=== PATIENT | male | born 1945 | race Caucasian/White ===

== ENCOUNTER 2020-05-17 09:47 | Outpatient (REF) | payer SELFPAY ==
--- NOTE | 2020-05-17 11:48 | MHC.AU.P13 ---
Hearing Instrument Follow-Up- Binaural Date of Visit: 05/17/20 Lithographic Plate Maker Apprentice Used: Not Applicable Right Ear: Protection Analyst: Phonak Model: ClearCareeo B 90-312 Serial Number: [id number] Repair Warranty: 05/05/2020 Loss and Damage Warranty: 05/05/2020 Battery Size: 312 Color: Graphite Davidson Director Of It Operations: #3 Standard Type of Mold: Phonak Canal Lock Slim Tip [id number] Warranty 06/06/2017 Type of Wax Guard: CeruStop Left Ear: Protection Analyst: Phonak Model: Audeo B 90-312 Serial Number: [id number] RepairWarranty: 05/05/2020 Loss and Damage Warranty: 05/05/2020 Battery Size: 312 Color: Graphite Davidson Director Of It Operations: #3 Standard Type of Mold: Phonak Canal Lock Slim Tip [id number] Warranty 06/06/2017 Type of Wax Guard: CeruStop Follow-Up Summary: Patient brought in (then waited in the car) noting the left Phonak aid was not working and the right Phonak aid not sitting on ear correctly and may be related to the slim tip. Both aids had cerumen blocking the receivers and microphones, left aid greater than right. Able to clean, microphones, contacts, microphones, slim tips. Both amplifying clearly after cleaning. THE RIGHT SLIM TIP HAS A CRACK NEAR THE CANAL LOCK with THE WAX GUARD RING LOSE AND AN OLD WAX GUARD STUCK IN THE MOLD (able to remove the old wax guard). RECOMMEND PATIENT PURCHASE A NEW RIGHT CANAL LOCK SLIM TIP. Patient also brought in his old left Mahendra aid not working at all. Again, cerumen was completely blocking the wax guard. Able to change the wax guard and clean contacts and brush microphones. Due to the age of the aid, unable to change the microphone cover so just brushed. The aid is amplifying;however, the sound is much weaker compared to the Phonak aids. Patient approved cost of $115.00 for new Right canal lock slim tip. Faxed order. Call patient when in Recommendations: Recommendations: Hearing instrument follow-up or maintenance as needed. Recommendations (Other): Faxed order for new Right Canal Lock Slim Tip using scan on file. Patient approved $115.00 cost. Schedule appointment when received. Diagnosis Code(s): Primary Diagnosis: H90.3 Bilateral Sensorineural Hearing Loss Signature: Provider: Felipe Richard, KHANG-A
== END 2020-05-17 09:48 | disposition home or self-care (01) ==
LOC: HO.HAP 09:47
PROVIDERS: Visit Provider Internal Medicine
DX: Z13.89 Encounter for screening for other disorder (principal)

== ENCOUNTER 2020-05-24 10:55 | Outpatient (REF) | payer MEDICARE, OTHER, SELFPAY ==
--- NOTE | 2020-05-24 11:16 | MHC.AU.P13 ---
Adult Audiological Evaluation Date of Visit: 05/24/20 Reason for Appointment: History of hearing loss. Patient arrives to determine if there has been a change in hearing. Previous Hearing Test Results: 04/21/2019 At this Clinic- Moderate to severe sensorineural hearing loss bilaterally Ear History: Recent Ear Drainage: None Reported Recent Ear Pain: None Reported Family History of Hearing Loss?: Yes Recent Ear Infections: None Reported Hearing Instrument History- Right Ear: Land Surveyor Manager: Phonak Model: [employer]ovation[employer].eo B 90-312 Serial Number: [id number] Battery Size: 312 Repair Warranty: 05/05/2020 Loss and Damage Warranty: 05/05/2020 Dispensed By: [facility] Date of Fittin02/19/2017 Hearing Instrument History- Left Ear: Land Surveyor Manager: Phonak Model: [employer]ovation[employer].eo B 90-312 Serial Number: [id number] Battery Size: 312 Warranty: 05/05/2020 Loss and Damage Warranty: 05/05/2020 Dispensed By: [facility] Date of Fittin02/19/2017 Otoscopy: Right Ear: Unremarkable Left Ear: Unremarkable Tympanometry: Right Ear: Normal Middle Ear System (Type A) Left Ear: Normal Middle Ear System (Type A) Hearing Evaluation: Transducer(s) Used: Insert Earphones Method: Conventional Audiometry Stimuli Used: Pure Tones Right Ear: Description of Hearing: Moderate to severe sensorineural hearing loss Left Ear: Description of Hearing: Moderate to severe sensorineural hearing loss Speech Recognition Threshold (SRT): Method Used: Recorded Lists Stimuli Used: Spondee Words Right Ear: 60 dBHL Left Ear: 60 dBHL Word Discrimination: Method: Recorded Lists Word Lists Used: NU-6 Right Ear: 80% at 85 dBHL Left Ear: 88% at 85 dBHL Most Comfortable Level (MCL): Right Ear: 85 dBHL Left Ear: 85 dBHL QuickSIN: Unaided at 85 dBHL: 7 dB SNR loss, which indicates moderate difficulty hearing in noise Aided at 55 dBHL: Improved to 4 dB SNR loss Aided Testing: Aided Testing: Aided word discrimination is 96% at 55 dBHL Comparison: Compared to the most recent evaluation: Hearing is stable. Recommendations: Audiological re-evaluation in one year. Patient had hearing aid maintenance last week; therefore, maintenance was not performed again today. A new right-sided slim tip was ordered last week. Patient will be contacted when it has arrived. Diagnosis: Primary Diagnosis: H90.3 Bilateral Sensorineural Hearing Loss Services Performed: Services Performed: Comprehensive Audiological Evaluation (CPT 35198), Tympanometry (CPT 55180) Signature: Provider: Felipe Mathur, CCC-A
== END 2020-05-24 10:56 | disposition home or self-care (01) ==
LOC: HO.SH 10:55
PROVIDERS: Visit Provider Internal Medicine
DX: H90.3 Sensorineural hearing loss, bilateral (principal)
CPT/HCPCS: 92557; 92567

== ENCOUNTER 2020-06-16 13:04 | Outpatient (REF) | payer SELFPAY | END 2020-06-16 13:05 | disposition home or self-care (01) | LOC: HO.HAP 13:04 | PROVIDERS: Visit Provider Internal Medicine | DX: Z46.1 Encounter for fitting and adjustment of hearing aid (principal); H90.3 Sensorineural hearing loss, bilateral | CPT/HCPCS: V5264 ==

== ENCOUNTER 2020-06-24 12:50 | Outpatient (REF) | payer SELFPAY | END 2020-06-24 12:51 | disposition home or self-care (01) | LOC: HO.HAP 12:50 | PROVIDERS: Visit Provider Internal Medicine | DX: Z13.89 Encounter for screening for other disorder (principal) ==

== ENCOUNTER 2020-07-06 12:49 | Outpatient (REF) | payer SELFPAY | END 2020-07-06 12:50 | disposition home or self-care (01) | LOC: HO.HAP 12:49 | PROVIDERS: Visit Provider Internal Medicine | DX: Z46.1 Encounter for fitting and adjustment of hearing aid (principal) | CPT/HCPCS: V5267 ==

== ENCOUNTER 2020-11-11 09:54 | Outpatient (REF) | payer SELFPAY ==
--- NOTE | 2020-11-11 09:57 | MHC.AU.P13 ---
Hearing Instrument Maintenance Date of Visit: 11/11/20 Right Ear: Mds Manager: Phonak Model: Problemcity.comeo B 90-312 Serial Number: [id number] Repair Warranty: 05/05/2020 Loss and Damage Warranty: 05/05/2020 Battery Size: 312 Color: Graphite Davidson Social Work Professor: #3 Standard Type of Mold: Phonak Canal Lock Slim Tip [id number] Warranty Expires 09/20/2020 Type of Wax Guard: CeruStop Dispensed By: [facility] Date of Fittin02/19/2017 Left Ear: Mds Manager: Phonak Model: [employer].comeo B 90-312 Serial Number: [id number] Repair Warranty: 05/05/2020 Loss and Damage Warranty: 05/05/2020 Battery Size: 312 Color: Graphite Davidson Social Work Professor: #3 Standard Type of Mold: Phonak Canal Lock Slim Tip [id number] Warranty 06/06/2017 Type of Wax Guard: CeruStop Dispensed By: [facility] Date of Fittin02/19/2017 Follow-Up Summary: FERGUSON Maint - Hearing aids and slim tips cleaned, wax guards replaced, both amplifying clearly. Recommendations: Recommendations: Hearing instrument follow-up or maintenance as needed. Signature: Provider: DENIZ Nicholas-HIS
== END 2020-11-11 09:55 | disposition home or self-care (01) ==
LOC: HO.HAP 09:54
PROVIDERS: Visit Provider Internal Medicine
DX: Z46.1 Encounter for fitting and adjustment of hearing aid (principal); H90.3 Sensorineural hearing loss, bilateral
CPT/HCPCS: V5267; V5299

== ENCOUNTER 2021-02-23 08:11 | Outpatient (REF) | payer SELFPAY ==
--- NOTE | 2021-02-23 11:29 | MHC.AU.HAS ---
Hearing Aid Evaluation Date of Visit: 02/23/21 Historical Information: Description of Hearing: Moderate to severe sensorineural hearing loss bilaterally Current personal amplification information, if applicable: Pair of Phonak Audeo B90-312, obtained on 02/19/2017 Summary: Patient is interested in new amplification. Recently, the slim tip on his left hearing aid broke. He decided that he would rather pursue a new pair of hearing aids and keep the Phonak as the back-up rather than put more money into a new slim tip at this time. He reports that background noise is his biggest area of difficulty. Looking at past visits, the most common problems with the hearing aids have been wax occlusion in the receivers and overall wax build-up on the slim tips. There have also been issues with broken slim tip or broken efficiency miner. Discussed that we may want to try a different style of hearing aid to address these concerns. A BTE would be sturdier and easier to clean. A pure tone screening was performed, as patient's last hearing test was over 6 months ago, on 05/24/20. No change in hearing thresholds. Hearing Aid Prescription: Based on the individual?s shared listening needs, communication environments, dexterity, desire for connectivity, and personal preferences, the following prescription for amplification has been made: Right ear: Manager Competitive Intelligence: Mahendra Model: Evolv AI 2400 BTE 13 Battery Size: 13 Color: Black Type of Mold: Microsonic M2000 Clear Canal Lock Left ear: Manager Competitive Intelligence: Mahendra Model: Evolv AI 2400 BTE 13 Battery Size: 13 Color: Black Type of Mold: Microsonic M2000 Clear Canal Lock Action Taken/Action Needed: Earmold Impressions Taken Hearing Instrument Fitting to be scheduled when materials arrive Paid $350 deposit. Will need itemized receipt to submit to insurance at fitting. Primary Diagnosis: H90.3 Bilateral Sensorineural Hearing Loss Signature: Provider: Felipe Mathur, KHANG-A
== END 2021-02-23 08:12 | disposition home or self-care (01) ==
LOC: HO.SH 08:11
PROVIDERS: Visit Provider Internal Medicine
DX: Z46.1 Encounter for fitting and adjustment of hearing aid (principal); H90.3 Sensorineural hearing loss, bilateral
CPT/HCPCS: 92591

== ENCOUNTER 2021-04-28 10:17 | Outpatient (REF) | payer SELFPAY ==
--- NOTE | 2021-04-28 13:50 | MHC.AU.HFA ---
Hearing Instrument Fitting- Adult- Binaural Date of Visit: 04/28/21 Hearing Instruments Dispensed: Right Ear: Tobacco Stripper: Mahendra Model: Evolv AI 2400 BTE 13 Serial Number: [id number] Repair Warranty: 07/06/2024 Loss and Damage Warranty: 07/06/2024 Service Plan: 04/28/2024 Battery Size: 13 Color: Black Type of Mold: Microsonic M2000 Clear Canal Lock Left Ear: Tobacco Stripper: Mahendra Model: Evolv AI 2400 BTE 13 Serial Number: [id number] Repair Warranty: 07/06/2024 Loss and Damage Warranty: 07/06/2024 Service Plan: 04/28/2024 Battery Size: 13 Color: Black Type of Mold: Microsonic M2000 Clear Canal Lock Summary of Fitting: Feedback canceler run. Molds fit well. Verifit performed and levels adjusted to better reach targets. Patient reports the sound is louder than he's used to, but comfortable and clear. He would like to keep it as it is for now since he is hearing so well. Volume control activated. Hearing care and maintenance were discussed and demonstrated. Discussed that the tubing/mold could be taken off for cleaning, and that it should be entirely dry before being placed back on the hearing aid. Patient does not have a smart phone. Discussed that if he were to get a smart phone in the future, we would be happy to help him set up Bluetooth pairing to his hearing aids, if interested. Recommendations: Recommendations: Patient brought an order from his PCP for an updated hearing test. In January 2021, only a pure tone check was performed for the sake of making a hearing aid recommendation. We will do the full audiological evaluation in April 2021. This is also serve as the hearing aid follow-up. Patient can call with questions or concerns before the next appointment. Paid the balance of the hearing aids. Diagnosis Code(s): Primary Diagnosis: H90.3 Bilateral Sensorineural Hearing Loss Signature: Provider: Felipe Mathur, [facility]
== END 2021-04-28 10:18 | disposition home or self-care (01) ==
LOC: HO.HAP 10:17
PROVIDERS: Visit Provider Internal Medicine
DX: Z46.1 Encounter for fitting and adjustment of hearing aid (principal); H90.3 Sensorineural hearing loss, bilateral
CPT/HCPCS: V5261

== ENCOUNTER 2021-05-12 09:34 | Outpatient (REF) | payer MEDICARE, OTHER, SELFPAY ==
--- NOTE | 2021-05-12 14:38 | MHC.AU.AHA ---
Adult Audiological Evaluation Date of Visit: 05/12/21 Reason for Appointment: Long-standing history of hearing loss. Patient arrives to determine if there has been a change in hearing. Ear History: Recent Ear Drainage: None Reported Recent Ear Pain: None Reported Family History of Hearing Loss?: Yes Recent Ear Infections: None Reported History of Ear Wax Buildup: Both Ears Hearing Instrument History- Right Ear: Helicopter Mechanic: [employer] Model: OnRamp Digitalv AI 2400 BTE 13 Serial Number: [id number] Battery Size: 13 Repair Warranty: 07/06/2024 Loss and Damage Warranty: 07/06/2024 Service Plan: 04/28/2024 Dispensed By: [facility] Date of Fittin04/28/2021 Hearing Instrument History- Left Ear: Helicopter Mechanic: [employer] Model: OnRamp Digitalv AI 2400 BTE 13 Serial Number: [id number] Battery Size: 13 Warranty: 07/06/2024 Loss and Damage Warranty: 07/06/2024 Service Plan: 04/28/2024 Dispensed By: [facility] Date of Fittin04/28/2021 Otoscopy: Right Ear: Partially occluded with cerumen Left Ear: Partially occluded with cerumen Hearing Evaluation: Transducer(s) Used: Insert Earphones Method: Conventional Audiometry Stimuli Used: Pure Tones Right Ear: Description of Hearing: Moderate to severe sensorineural hearing loss Left Ear: Description of Hearing: Moderate to severe sensorineural hearing loss Speech Recognition Threshold (SRT): Method Used: Recorded Lists Stimuli Used: Spondee Words Right Ear: 50 dBHL Left Ear: 45 dBHL Word Discrimination: Method: Recorded Lists Word Lists Used: W-22 Right Ear: 75% at 85 dBHL Left Ear: 80% at 85 dBHL Binaural with noise (+10 SNR): 60% at 85 dBHL Most Comfortable Level (MCL): Right Ear: 85 dBHL Left Ear: 85 dBHL Aided Testing: Aided word discrimination in quiet: 96% at 50 dBHL. Aided word discrimination in noise (+10 SNR): 92% at 50 dBHL. Comparison: Compared to the most recent evaluation: Hearing is stable. Recommendations: Audiological re-evaluation in one year. Patient reports that he loves his new hearing aids. He feels he hears significantly better with them than his older ones. He does not feel any adjustments are necessary at this time. At patient's request, reviewed how to clean the hearing aids. Hearing aid maintenance in 6 months, or sooner if needed. Patient reports that he is scheduled to see Dr. Marin in June 2021 for cerumen removal. Diagnosis: Primary Diagnosis: H90.3 Bilateral Sensorineural Hearing Loss Secondary Diagnosis: Services Performed: Comprehensive Audiological Evaluation (CPT 29012) Signature: Provider: Felipe Mathur, CCC-A
== END 2021-05-12 09:35 | disposition home or self-care (01) ==
LOC: HO.SH 09:34
PROVIDERS: Visit Provider Internal Medicine
DX: H90.3 Sensorineural hearing loss, bilateral (principal)
CPT/HCPCS: 92557

== ENCOUNTER 2021-06-15 10:17 | Outpatient (REF) | payer SELFPAY | END 2021-06-15 10:18 | disposition home or self-care (01) | LOC: HO.HAP 10:17 | PROVIDERS: Visit Provider Internal Medicine | DX: Z13.89 Encounter for screening for other disorder (principal) ==

== ENCOUNTER 2021-07-19 12:56 | Outpatient (REF) | payer SELFPAY | END 2021-07-19 12:57 | disposition home or self-care (01) | LOC: HO.HAP 12:56 | PROVIDERS: Visit Provider Internal Medicine | DX: Z13.89 Encounter for screening for other disorder (principal) ==

== ENCOUNTER 2021-08-10 11:09 | Outpatient (REF) | payer SELFPAY | END 2021-08-10 11:10 | disposition home or self-care (01) | LOC: HO.HAP 11:09 | PROVIDERS: Visit Provider Internal Medicine | DX: Z13.89 Encounter for screening for other disorder (principal) ==

== ENCOUNTER 2021-10-12 13:56 | Outpatient (REF) | payer SELFPAY | END 2021-10-12 13:57 | disposition home or self-care (01) | LOC: HO.HAP 13:56 | PROVIDERS: Visit Provider Internal Medicine | DX: Z13.89 Encounter for screening for other disorder (principal) ==

== ENCOUNTER 2021-12-02 10:12 | Outpatient (REF) | payer SELFPAY | END 2021-12-02 10:13 | disposition home or self-care (01) | LOC: HO.HAP 10:12 | PROVIDERS: Visit Provider Internal Medicine | DX: Z13.89 Encounter for screening for other disorder (principal) ==

== ENCOUNTER 2022-02-07 14:55 | Outpatient (REF) | payer SELFPAY | END 2022-02-07 14:56 | disposition home or self-care (01) | LOC: HO.HAP 14:55 | PROVIDERS: Visit Provider Internal Medicine | DX: Z13.89 Encounter for screening for other disorder (principal) ==

== ENCOUNTER 2022-02-08 14:39 | Outpatient (REF) | payer OTHER, MEDICARE, SELFPAY ==
--- NOTE | 2022-02-08 10:17 | MHC.AU.FUR ---
Hearing Instrument Follow-Up Date of Visit: 02/08/22 Right Ear: Personal Insurance Advisor: Planbox Model: Evolv AI 2400 BTE 13 Serial Number: [id number] Repair Warranty: 07/06/2024 Loss and Damage Warranty: 07/06/2024 Battery Size: 13 Color: Black Tubing: Tube Lock Type of Mold: [employer] M2000 Clear Canal Lock Dispensed By: [facility] Date of Fittin04/28/2021 Follow-Up Summary: Josiah dropped off his right hearing aid reporting a chirping and squealing that is also audible to his . Tubing was hard. Cleaned hearing aid and mold, vacuumed microphone, and retubed ear mold. Listening check demonstrated hearing aid is in good working order. Called patient to discuss findings. Advised if feedback persists, recommend scheduling an appointment for otoscopy to check for wax build-up and possible feedback management test, if necessary. Recommendations: Hearing instrument maintenance in 6 months, or sooner if needed. Please contact our clinic with any questions or concerns. Patient will call if problems persist. Diagnosis Code(s): Primary Diagnosis: H90.3 Bilateral Sensorineural Hearing Loss Signature: Provider: Shilpa Hawk, [facility]
== END 2022-02-08 14:40 | disposition home or self-care (01) ==
LOC: HO.HAP 14:39
PROVIDERS: Visit Provider Internal Medicine
DX: Z13.89 Encounter for screening for other disorder (principal)

== ENCOUNTER 2022-05-23 14:02 | Outpatient (REF) | payer SELFPAY | END 2022-05-23 14:03 | disposition home or self-care (01) | LOC: HO.HAP 14:02 | PROVIDERS: Visit Provider Internal Medicine | DX: Z13.89 Encounter for screening for other disorder (principal) ==

== ENCOUNTER 2022-05-29 13:36 | Outpatient (REF) | payer MEDICARE, OTHER, SELFPAY | END 2022-05-29 13:37 | disposition home or self-care (01) | LOC: HO.SH 13:36 | PROVIDERS: Visit Provider Internal Medicine | DX: H90.3 Sensorineural hearing loss, bilateral (principal) | CPT/HCPCS: 92557; 92567 ==

== ENCOUNTER 2022-06-26 09:47 | Outpatient (REF) | payer MEDICARE, OTHER, SELFPAY | END 2022-06-26 09:48 | disposition home or self-care (01) | LOC: HO.HAP 09:47 | PROVIDERS: Visit Provider Internal Medicine | DX: Z13.89 Encounter for screening for other disorder (principal) ==

== ENCOUNTER 2022-08-08 09:27 | Outpatient (REF) | payer SELFPAY | END 2022-08-08 09:28 | disposition home or self-care (01) | LOC: HO.HAP 09:27 | PROVIDERS: Visit Provider Internal Medicine | DX: Z13.89 Encounter for screening for other disorder (principal) ==

== ENCOUNTER 2022-09-05 10:17 | Outpatient (REF) | payer SELFPAY ==
--- NOTE | 2022-09-05 11:03 | MHC.AU.HFU ---
Hearing Instrument Follow-Up- Binaural Date of Visit: 09/05/22 Right Ear: Mahendra Abad AI 2400 BTE 13, Black, #[id number] Repair Warranty: 07/06/2024 Loss and Damage Warranty: 07/06/2024 Service Plan: 04/28/2024 Battery Size: 13 Color: Black Tubing: Tube Lock Type of Mold: Microsonic M2000 Clear Canal Lock Dispensed By: [facility] Date of Fittin04/28/2021 Left Ear: Mahendra Abad AI 2400 BTE 13, Black, #[id number] Repair Warranty: 07/06/2024 Loss and Damage Warranty: 07/06/2024 Service Plan: 04/28/2024 Battery Size: 13 Color: Black Tubing: Tube Lock Type of Mold: Microsonic M2000 Clear Canal Lock Dispensed By: [facility] Date of Fittin04/28/2021 Follow-Up Summary: The patient is here today for a hearing aid check/cleaning, accompanied by his . Josiah reports he is not very happy with his hearing aids. He experiences some difficulty hearing in groups and finds they often get moisture in the tubing. I spent time discussing care and use of the hearing aids as well as realistic expectations given degree of hearing loss and word recognition scores. Discussed communication strategies. Visual inspection of the hearing aids reveal the right ear mold tubing has hardened and there is debris visualized on the hearing aids and ear molds bilaterally. I re-tubed right and left ear molds, measuring them to the patient's ears. I also brushed over and under the hearing aid microphone covers. Listening check reveals clear sound bilaterally. Otoscopy reveals some dry skin, otherwise clear bilaterally. The patient will begin using his dry and store daily. He currently stores his hearing aids in the kitchen, but will try storing them in his den instead to see if that prevents moisture build up. Josiah has noticed the hearing aid low battery signal will go off long before it is due to be changed, but this does not happen regularly. I encouraged him to track this more closely and if it is a consistent issue, we should send that aid out for repair. He and his indicated understanding. They will schedule another maintenance appointment once they note ear mold tubing have hardened. Diagnosis Code(s): Primary Diagnosis: H90.3 Bilateral Sensorineural Hearing Loss Signature: Provider: Felipe Sharif, CCC-A
== END 2022-09-05 10:18 | disposition home or self-care (01) ==
LOC: HO.HAP 10:17
PROVIDERS: Visit Provider Internal Medicine
DX: Z13.89 Encounter for screening for other disorder (principal)

== ENCOUNTER 2022-09-29 10:06 | Outpatient (REF) | payer SELFPAY | END 2022-09-29 10:07 | disposition home or self-care (01) | LOC: HO.HAP 10:06 | PROVIDERS: Visit Provider Internal Medicine | DX: Z13.89 Encounter for screening for other disorder (principal) ==

== ENCOUNTER 2022-11-01 08:28 | Outpatient (REF) | payer SELFPAY | END 2022-11-01 08:29 | disposition home or self-care (01) | LOC: HO.HAP 08:28 | PROVIDERS: Visit Provider Internal Medicine | DX: Z13.89 Encounter for screening for other disorder (principal) ==

== ENCOUNTER 2022-12-07 08:38 | Outpatient (REF) | payer SELFPAY | END 2022-12-07 08:39 | disposition home or self-care (01) | LOC: HO.HAP 08:38 | PROVIDERS: Visit Provider Internal Medicine | DX: Z13.89 Encounter for screening for other disorder (principal) ==

== ENCOUNTER 2023-05-15 07:51 | Outpatient (REF) | payer MEDICARE, OTHER, SELFPAY ==
--- NOTE | 2023-05-15 09:32 | MHC.AU.HA3 ---
Hearing Instrument Follow-Up- Binaural Date of Visit: 05/15/23 Right Ear: Larry, Model, Color, Serial Number: Mahendra FLORES 2400 BTE 13 Black #[id number] Recovery Specialist Repair Warranty: 07/06/2024 Recovery Specialist Loss and Damage Warranty: 07/06/2024 [facility] Service Plan: 04/28/2024 Battery Size: 13 Stunt Woman/Slim Tube: Earmold/Dome/CShell/SlimTip:Microsonic M2000 Clear Canal Lock Type of Wax Guard: Dispensed By: [facility] Date of Fittin04/28/2021 Left Ear: Larry, Model, Color, Serial Number: Mahendra FLORES 2400 BTE 13 Black [id number] Recovery Specialist Repair Warranty: 07/06/2024 Recovery Specialist Loss and Damage Warranty: 07/06/2024 [facility] Service Plan: 04/28/2024 Battery Size: 13 Stunt Woman/Slim Tube: Earmold/Dome/CShell/SlimTip: Microsonic M2000 Clear Canal Lock Type of Wax Guard: Dispensed By: [facility] Date of Fittin04/28/2021 Follow-Up Summary: Here for evaluation. Notes difficulty understanding even with hearing aids in. Cleaned and checked aids and earmolds. Tubes very hard. Replaced tubes and tonehooks. Listening check positive. Settings look appropriate for loss. Pt is somewhat interested in new HAs as he can use his insurance benefit and he has never been as satisfied with these as his previous pairs. Recommendations: Recommendations: Return in four months for tube change. Advised test is good for 6 months if he would like to come back for a hearing aid evaluation to discuss new technology. Diagnosis Code(s): Primary Diagnosis: H90.3 Bilateral Sensorineural Hearing Loss Signature: Provider: Shilpa Roberson, [facility]
== END 2023-05-15 07:52 | disposition home or self-care (01) ==
LOC: HO.SH 07:51
PROVIDERS: Visit Provider Internal Medicine
DX: Z01.118 Encounter for examination of ears and hearing with other abnormal findings (principal); H90.3 Sensorineural hearing loss, bilateral
CPT/HCPCS: 92552; 92556

== ENCOUNTER 2023-06-01 14:13 | Outpatient (REF) | payer SELFPAY ==
--- NOTE | 2023-06-04 10:32 | MHC.AU.HA3 ---
Hearing Instrument Follow-Up- Binaural Date of Visit: 06/01/23 Right Ear: Larry, Model, Color, Serial Number: Mahendra FLORES 2400 BTE 13 SN: [id number] Color: Black Residential Property Manager Repair Warranty: 07/06/2024 Residential Property Manager Loss and Damage Warranty: 07/06/2024 [facility] Service Plan: 04/28/2024 Battery Size: 13 Earmold/Dome/CShell/SlimTip:Microsonic M2000 Clear Canal Lock Dispensed By: [facility] Date of Fittin04/28/2021 Left Ear: Larry, Model, Color, Serial Number: Mahendra Abad AI 2400 BTE 13 SN: [id number] Color: Black Residential Property Manager Repair Warranty: 07/06/2024 Residential Property Manager Loss and Damage Warranty: 07/06/2024 [facility] Service Plan: 04/28/2024 Battery Size: 13 Earmold/Dome/CShell/SlimTip: Microsonic M2000 Clear Canal Lock Dispensed By: [facility] Date of Fittin04/28/2021 Follow-Up Summary: Josiah dropped off both hearing aids reporting that they stopped working. After he cleaned them, they started working but then stopped again. Upon inspection, moisture bubbles noted in tubing and lots of debris under microphone covers. Cleaned both hearing aids and ear molds. Vacuumed microphones. Replaced tubing. Ran through dehumidifier. A listening check demonstrated hearing aids are amplifying clearly and no intermittency noted. Recommendations: Hearing instrument follow-up or maintenance as needed. Please contact our clinic with any questions or concerns. Diagnosis Code(s): Primary Diagnosis: H90.3 Bilateral Sensorineural Hearing Loss Signature: Provider: Shilpa Hawk, [facility]
== END 2023-06-01 14:14 | disposition home or self-care (01) ==
LOC: HO.HAP 14:13
PROVIDERS: Visit Provider Internal Medicine
DX: Z13.89 Encounter for screening for other disorder (principal)

== ENCOUNTER 2023-06-05 10:35 | Outpatient (REF) | payer SELFPAY | END 2023-06-05 10:36 | disposition home or self-care (01) | LOC: HO.HAP 10:35 | PROVIDERS: Visit Provider Internal Medicine | DX: Z13.89 Encounter for screening for other disorder (principal) ==

== ENCOUNTER 2023-06-07 14:44 | Outpatient (REF) | payer SELFPAY ==
--- NOTE | 2023-06-08 09:07 | MHC.AU.HA1 ---
Hearing Aid Evaluation Date of Visit: 06/07/23 Historical Information: Description of Hearing: Moderate to moderately severe sensorineural hearing loss bilaterally Current personal amplification information, if applicable: Mahendra evolv 2400 BTEs Summary: Josiah visited with his to discuss new hearing aids. He has been dissatisfied with his current aids, finding them needed a lot of maintenance and repairs and are often intermittent at home. Discussed BTEs versus RICs, as well as different microstrategy architect developer options. Ultimately decided on RICs as he has had issues with moisture in his tubes and RICs will require less frequent maintenance. Selected Oticon as he has worn both Phonak and Mahendra without being very happy. Opted for rechargeable aids as he finds changing batteries frustrating. Will order Smart Wax Molder with current promotion so he has the option to charge without power source if needed. Josiah requested soft earmolds with canal locks as he found them much more comfortable than his previous hard molds. Impressions taken without incident. Will submit order and medical clearance and contact patient when everything arrives. Hearing Aid Prescription: Based on the individual?s shared listening needs, communication environments, dexterity, desire for connectivity, and personal preferences, the following prescription for amplification has been made: Right ear: Make, Model, Color: Mahendra Evolv AI 2400 BTE 13 SN: [id number] Color: Black Battery Size: 13 Habitat Conservation Planner/Slim Tube: Type of Earmold/Dome/CShell/SlimTip: Microsonic M2000 Clear Canal Lock Left ear: Left ear prescription to be same as Right Hearing Aid above: Make, Model, Color: Mahendra Evolv AI 2400 BTE 13 SN: [id number] Color: Black Battery Size: 13 Habitat Conservation Planner/Slim Tube: Type of Earmold/Dome/CShell/SlimTip: Microsonic M2000 Clear Canal Lock Plan of Care: Patient wishes to purchase hearing aids as prescribed Action Taken/Action Needed: Earmold Impressions Taken Medical Clearance to be requested from PCP/ENT Hearing Instrument Fitting to be scheduled when materials arrive Primary Diagnosis: H90.3 Bilateral Sensorineural Hearing Loss Signature: Provider: Felipe Shahid, CCC-A
--- NOTE | 2023-06-08 09:28 | MHC.AU.MED ---
Medical Clearance for Hearing Instrumentation Date: 06/08/23 Patient Name: Josiah Torres Date of : 1945 Primary Care Provider: Referring Provider: Claudia Issa MD We have seen your patient on 06/08/23 and have determined that they are a candidate for amplification (See accompanying report). Specifically, they would benefit from: Hearing aid use in both ears There is a statute that addresses Medical Evaluation Requirements prior to fitting a patient with a hearing aid. According to [place] statute 265 CMR:6.03(1), (a) General. Except as provided in 265 CMR 6.03(1)(b), a warehouse logistics coordinator shall not sell a hearing aid unless the prospective user has presented to the warehouse logistics coordinator a written statement signed by a licensed physician that states that the patient's hearing loss has been medically evaluated and the patient may be considered a candidate for a hearing aid. The medical evaluation must have taken place within the preceding six months. Please note: Due to the [place] Statute referenced above, we cannot accept a signature other than that of a licensed physician. ELEVATED WORK PLATFORM OPERATOR and PA signatures cannot be accepted. I am in agreement with the above recommendation. There is no medical contraindication for hearing instrumentation. Physician Signature Date Physician Name (Printed)
== END 2023-06-07 14:45 | disposition home or self-care (01) ==
LOC: HO.HAP 14:44
PROVIDERS: Visit Provider Internal Medicine
DX: Z46.1 Encounter for fitting and adjustment of hearing aid (principal); H90.3 Sensorineural hearing loss, bilateral
CPT/HCPCS: 92590

== ENCOUNTER 2023-06-25 14:18 | Outpatient (REF) | payer OTHER, SELFPAY | END 2023-06-25 14:19 | disposition home or self-care (01) | LOC: HO.HAP 14:18 | PROVIDERS: Visit Provider Internal Medicine | DX: Z46.1 Encounter for fitting and adjustment of hearing aid (principal); H90.3 Sensorineural hearing loss, bilateral | CPT/HCPCS: V5262; V5264; V5299 ==

== ENCOUNTER 2023-07-10 11:17 | Outpatient (REF) | payer SELFPAY | END 2023-07-10 11:18 | disposition home or self-care (01) | LOC: HO.HAP 11:17 | PROVIDERS: Visit Provider Internal Medicine | DX: Z13.89 Encounter for screening for other disorder (principal) ==

== ENCOUNTER 2023-08-16 13:22 | Emergency (ER) | payer MEDICARE, OTHER, SELFPAY ==
--- NOTE | ~2023-08-16 | XR_ITS ---
EXAMINATION: XR SHOULDER, RIGHT CLINICAL INFORMATION: Right shoulder pain. COMPARISON: None available. TECHNIQUE: Two views of the right shoulder. FINDINGS: Severe glenohumeral osteoarthritis with large marginal osteophytes, articular cortical irregularity, and joint space narrowing. Bones are osteopenic. Mild to moderate acromioclavicular osteoarthritis. Soft tissues are unremarkable. 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
--- NOTE | ~2023-08-16 | CT_ITS ---
EXAMINATION: CT HEAD WITHOUT CONTRAST CT CERVICAL SPINE WITHOUT CONTRAST CLINICAL INFORMATION: 78-year-old male status post fall COMPARISON: None TECHNIQUE: CT of the head and cervical spine were performed without intravenous contrast. Multiplanar reformats were rendered and reviewed. This CT examination was performed using dose optimization techniques as appropriate, variously including the following: *Automated exposure control *Adjustment of mA and/or kV according to patient size (this includes techniques or standardized protocols for targeted exams where dose is matched to indication/reason for exam; i.e. extremities or head) *Use of iterative reconstruction technique DLP: 752 mGy-cm for head and 568mGy-cm. For cervical spine FINDINGS: CT head: No intracranial hemorrhage, large infarction, or mass lesion is seen. No extra-axial collection is appreciated. Ventricles are appropriate for age and sulci are mildly prominent due to age related involutional changes The visualized paranasal sinuses revealed mucous retention cyst in the right maxillary sinus and mastoid air cells are clear. CT cervical spine: The cervical alignment is normal. The craniocervical junction is normal. The vertebral body heights are maintained. There is straightening of cervical lordosis with grade 1 anterior listhesis of C5 over C6 and narrowing of C5-C6 and C6-C7 intervertebral disc spaces with marginal spurring. There is no spinal canal or foraminal stenosis. The paraspinal soft tissues are within normal limits. The partially imaged lung apices are clear. CT/CT head/brain wo IV con IMPRESSION: CT HEAD: No acute intracranial finding. CT CERVICAL SPINE: No cervical spine fracture or traumatic malalignment identified. Degenerative changes as described.
--- NOTE | ~2023-08-16 | CT_ITS ---
EXAMINATION: CT HEAD WITHOUT CONTRAST CT CERVICAL SPINE WITHOUT CONTRAST CLINICAL INFORMATION: 78-year-old male status post fall COMPARISON: None TECHNIQUE: CT of the head and cervical spine were performed without intravenous contrast. Multiplanar reformats were rendered and reviewed. This CT examination was performed using dose optimization techniques as appropriate, variously including the following: *Automated exposure control *Adjustment of mA and/or kV according to patient size (this includes techniques or standardized protocols for targeted exams where dose is matched to indication/reason for exam; i.e. extremities or head) *Use of iterative reconstruction technique DLP: 752 mGy-cm for head and 568mGy-cm. For cervical spine FINDINGS: CT head: No intracranial hemorrhage, large infarction, or mass lesion is seen. No extra-axial collection is appreciated. Ventricles are appropriate for age and sulci are mildly prominent due to age related involutional changes The visualized paranasal sinuses revealed mucous retention cyst in the right maxillary sinus and mastoid air cells are clear. CT cervical spine: The cervical alignment is normal. The craniocervical junction is normal. The vertebral body heights are maintained. There is straightening of cervical lordosis with grade 1 anterior listhesis of C5 over C6 and narrowing of C5-C6 and C6-C7 intervertebral disc spaces with marginal spurring. There is no spinal canal or foraminal stenosis. The paraspinal soft tissues are within normal limits. The partially imaged lung apices are clear. CT/CT cervical spine wo IV con IMPRESSION: CT HEAD: No acute intracranial finding. CT CERVICAL SPINE: No cervical spine fracture or traumatic malalignment identified. Degenerative changes as described.
[2023-08-16 13:29] VITALS: BP 145/61; PULSE 70; O2SAT 100
[2023-08-16 13:31] VITALS: BP 132/65; PULSE 65; RESP 16; TEMP 36.7; O2SAT 97; BMI 27.9
--- NOTE | 2023-08-16 13:35 | ED_ITS ---
HPI - Fall General Chief Complaint: Fall Stated Complaint: R ARM PAIN S/P FALL Time Seen by Provider: 08/16/23 13:33 Source: patient and EMS Mode of arrival: EMS Limitations: no limitations History of Present Illness HPI Narrative: 78 y/o male presenting today for R arm pain s/p fall at ~1:15pm. Patient reports that he was at 11/07 gas station when he missed a step and fell on his right side. He attempted to catch his fall with his right hand but fell on his right shoulder. Has superficial abrasion over right patella and small laceration on right olecranon. Reports 11/06 shoulder pain localized at tip of humeral head. He is unable to abduct greater than 90 degrees due to pain. Has pins and needles sensation that begins at R hand and travels to R acromion. Reports history of frequent dislocations as teenager and reports history to repair shoulder (unknown what specifically). Denies head strike, no LOC. Denies pain to R knee, reports that it is only superficial pain on the surface of the abrasion. No c hest pain, shortness of breath, dizziness, lightheadedness. Not on anticoagulation, reports that he takes aspirin 81 mg daily. complaint: fall Onset (ago): minute(s) Fall from: standing Fall witnessed: yes, by bystander Place fall occurred: street Loss of consciousness: none Symptoms prior to fall: none Context: tripped/slipped Location of injury: other (R shoulder) Location of injury - extremities: right: shoulder Severity: severe Severity scale (1-10): 7 Quality: aching Associated symptoms (after fall): denies Related Data Allergies Allergy/AdvReac Type Severity Reaction Status Date / Time iodine Allergy Vomiting Verified 08/16/23 13:41 Review of Systems Review of Systems: Yes all other systems are reviewed and are negative PMFSH Social History Social History Smoked in Last 30 Days: No Use of substances other than those prescribed or required for medical reasons: No Advance Directives: No Advance Directives Information Provided: Yes Physical Exam Vital Signs: Vital Signs: Last Vital Signs Temp 98.1 F 08/16/23 13:31 Pulse 65 08/16/23 13:31 Resp 16 08/16/23 13:31 BP 132/65 08/16/23 13:31 Pulse Ox 97 08/16/23 13:31 O2 Del Method Room Air 08/16/23 13:31 BMI result Body Mass Index 27.9 Appearance: Alert. Oriented X3. No acute distress. Head: normocephalic, atraumatic. Eyes: Pupils equal, round and reactive to light. Neck: Normal inspection. Neck supple. Full range of motion without pain or tenderness. CVS: Normal heart rate and rhythm. Pulses normal. Respiratory: No respiratory distress. Breath sounds normal. Abdomen: Soft and nontender. Skin: Skin warm and dry. Normal skin color. Normal skin turgor. Superficial abrasion on R patella. Small 1cm circular laceration on R olecranon. Extremities: No lower extremity edema. No joint swelling. Intact range of motion with flexion and extension of R knee. Unable to abduct R upper extremity > 90 degrees. Tender to palpation on humeral head. No ecchymosis. Curvilinear scar present. +supination and protonation of lower forearm Neuro/psych: Oriented X 3. No motor deficit. No sensory deficit. Normal speech and cognition. Medications Administered Discontinued Medications Generic Name Dose Route Start Last Admin Trade Name Stephenq PRN Reason Stop Dose Admin Acetaminophen 975 mg 08/16/23 14:31 08/16/23 14:37 Acetaminophen 325 Mg Tablet PO 08/16/23 14:32 975 mg ONCE ONE Administration Medical Decision Making Medical Decision Making [facility] Narrative: 78 y/o male presenting today for R arm pain s/p fall at ~1:15pm. On exam, he is holding his R upper extremity close and unable to complete abduction > 90 degrees. Reports tenderness with palpation over acriomioclavicular joint. No ecchymosis or swelling. X-Ray of the shoulder reveal fracture of the R humeral neck. Obtained CT head and neck- On evaluation 15:00, patient request acetaminophen for pain. He reports he is comfortable with sling, not pain in sling position, however severe pain with movemetn and palpation at R humeral head/ acriomioclavicular junction. Patient is stable, VSS, and comfortable to discharge home with immoblization with sling. Will apply sling and refer to orthopedics for outpatient follow up. Differential Diagnosis Differential Diagnoses: The differential diagnosis associated with the presentation includes fracture of humeral head, humeral neck, clavicle, scapula, anterior shoulder dislocation Independent Interpretation I performed an independent interpretation of an: Plain X-Ray Interpretation: nondisplaced transverse fracture through R humeral neck Radiology Impression Discussion of test interpretation with radiology: I have reviewed the radiologist's reading. Radiologist Impression: EXAMINATION: XR SHOULDER, RIGHT CLINICAL INFORMATION: Right shoulder pain. COMPARISON: None available. TECHNIQUE: Two views of the right shoulder. FINDINGS: Severe glenohumeral osteoarthritis with large marginal osteophytes, articular cortical irregularity, and joint space narrowing. Bones are osteopenic. Mild to moderate acromioclavicular osteoarthritis. Soft tissues are unremarkable. 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 Independent Historian Clinical information obtained from an independent historian. History obtained from or confirmed by: Spouse Prescription Management I considered prescription management with: Pain Medication Discharge Plan Discharge Clinical Impression: Fracture of proximal end of right humerus Patient Disposition: Home, Self-Care Instructions: Arm Fracture in Adults (ED) Additional Instructions: wear the provided sling for immobilization take tylenol and motrin as needed for pain follow up with orthopedics - call for an appointment If you develop new or worsening symptoms call 911 or come back to the ER for further evaluation. Referrals: [facility] [place] [facility] [Provider Group] Claudia Issa MD [Primary Care Provider] - Print Language: Guamanian
[2023-08-16] MEDS: Acetaminophen 325 MG TABLET 975 MG PO (14:37)
[2023-08-16 16:26] VITALS: BP 128/46; PULSE 57; RESP 16; TEMP 36.9; O2SAT 97
[2023-08-16 17:43] VITALS: BP 128/46; PULSE 57; RESP 16; TEMP 36.9
== END 2023-08-16 17:45 | disposition home or self-care (01) ==
PROVIDERS: Emergency Provider Emergency Medicine; PCP Internal Medicine
DX: S42.201A Unspecified fracture of upper end of right humerus, initial encounter for closed fracture (principal); Z79.82 Long term (current) use of aspirin; W19.XXXA Unspecified fall, initial encounter; Y93.9 Activity, unspecified; Y92.410 Unspecified street and highway as the place of occurrence of the external cause; Y99.9 Unspecified external cause status
CPT/HCPCS: 70450; 72125; 73030; 99284

== ENCOUNTER 2023-08-29 11:50 | Outpatient (REF) | payer MEDICARE, OTHER, SELFPAY ==
--- NOTE | ~2023-08-29 | XR_ITS ---
EXAMINATION: XR SHOULDER, RIGHT CLINICAL INFORMATION: Pain in right shoulder. COMPARISON: Right shoulder films dated 08/16/2023. TECHNIQUE: AP and scapular Y view of the right shoulder. FINDINGS: There is a nondisplaced acute transverse fracture at the humeral neck with cortical offset and indistinct subtle transverse lucency seen. Finding may be subacute given the indistinct appearance of the fracture lucency. There is extensive hypertrophic change at the humeral head with adjacent capsular heterotopic bone formation, similar to the previous exam. The acromioclavicular joint is intact with some spurring and hypertrophic changes seen. XR/XR shoulder RT min 2V IMPRESSION: * Nondisplaced fracture of the humeral neck, possibly subacute. Close clinical correlation and follow-up is recommended. Evaluation is limited given the extensive degenerative and hypertrophic changes. If clinically appropriate, CT scan of the chest could be performed for confirmation of this opinion. * Chronic degenerative changes in the glenohumeral and acromioclavicular joints.
== END 2023-08-29 11:51 | disposition home or self-care (01) ==
LOC: HO.HOSX 11:50
PROVIDERS: Visit Provider Physician Assistant
DX: S42.201A Unspecified fracture of upper end of right humerus, initial encounter for closed fracture (principal); M19.011 Primary osteoarthritis, right shoulder; W19.XXXA Unspecified fall, initial encounter; Y93.9 Activity, unspecified; Y92.9 Unspecified place or not applicable; Y99.9 Unspecified external cause status
CPT/HCPCS: 73030

== ENCOUNTER 2023-08-29 14:00 | Outpatient (AMB) | payer MEDICARE, OTHER, SELFPAY ==
--- NOTE | 2023-08-29 14:03 | A.OFFVIS_ITS ---
Vital Signs 08/29/23 14:18 Height 6 ft 5 in Weight 274 lb BMI 32.5 Intake Visit Reasons: FC-Proximal Humerus FC, DOI 08/16/23 Intake Note: Josiah is a 78 year old male, right hand dominant, who presents today for right proximal humerus fracture, DOI 08/16/23. Patient reports the pain has been going on since 08/16/23 after falling while coming out of a store , 7-8 on the 0-10 pain scale when moving. He is taking Tylenol for the pain which helps. Distribution Specialist Required: No Accompanied by: Spouse Allergies iodine Allergy (Verified 08/29/23 14:19) Vomiting HPI HPI FC-Proximal Humerus FC, DOI 08/16/23: Details: 78-year-old right hand dominant male who presents to the office today for evaluation of right shoulder injury after falling on the curb while coming out of a store, 08/16/23. He has a h/o severe OA in the right shoulder due to multiple dislocations when he was in his teens and 20's. He eventually had to undergo surgery in the right shoulder due to the dislocations. He currently states he has pain in his right shoulder which is aggravated with movement. He denies any elbow pain. He finds relief with Tylenol. [facility] Social History (Updated 08/29/23 @ 14:20 by AMI Cardoso) Current occupation: right handed Review of Systems Const All systems reviewed & are unremarkable except as noted in HPI and below Physical Exam Vital Signs: BMI result Body Mass Index 32.5 Const General: cooperative, healthy appearing, comfortable, no acute distress, well developed and alert Orientation/consciousness: patient oriented x3 HEENT Head: Yes normal to inspection, Yes normocephalic and Yes atraumatic Eyes General: appearance normal, both eyes and all related structures Resp Effort & Inspection: normal respiratory effort and able to speak in complete sentences Cardio Rate: regular rate Peripheral pulses: Peripheral pulses 2+ throughout GI Palpation (GI): Soft to palpation Skin Lesions: no lesions Rashes: no rashes Neuro General: patient oriented x3 Extrem Other: Right shoulder: Normal to inspection. Diffuse Swelling and tenderness over the proximal humerus which extends down the arm. Anterior deltoid sensation intact. Elbow and wrist ROM intact. NVI. Office Procedures Fracture Care Fracture Billing Code: Fracture Billing Code Results Reviewed Results Reviewed: Xrays were obtained in the office today and personally reviewed by me of the right shoulder show severe ghj oa with non displaced proximal humerus fracture Assessment & Plan Assessment & Plan (1) Closed fracture of right proximal humerus: Code(s): S42.201A - Unspecified fracture of upper end of right humerus, initial encounter for closed fracture Category: Medical (2) Osteoarthritis of right glenohumeral joint: Code(s): M19.011 - Primary osteoarthritis, right shoulder Category: Medical Plan He will discontinue the use of sling unless he is out in public and needs extra support, he can use it. He will work on ROM exercises ; like pendulums and work on elbow ROM exercises as well. No heavy lifting more than a cell phone. I would like to see him back in 6 weeks with new x-rays, sooner if needed. Orders: Orders XR shoulder RT min 2V Today M25.511 - Pain in right shoulder Patient Instructions: Scribed for Cyndi Olmstead PA-C, by Tamir Orellana certified medical records coder, on 08/29/2023 at 2:30 PM EST. I, Cyndi Olmstead PA-C, have personally reviewed and agree with the information entered by the scribe. Coding Level of Care Code New Pt Level 3 (88000) Diagnoses Closed fracture of right proximal humerus S42.201A Osteoarthritis of right glenohumeral joint M19.011 CPT Codes Fracture Care - Fracture Billing Code: Fracture Billing Code ([id number])
[2023-08-29 14:18] VITALS: BMI 32.5
== END 2023-08-29 14:42 | disposition home or self-care (01) ==
PROVIDERS: PCP Internal Medicine; Visit Provider Physician Assistant
DX: S42.201A Unspecified fracture of upper end of right humerus, initial encounter for closed fracture (principal); M19.011 Primary osteoarthritis, right shoulder
CPT/HCPCS: 99203

== ENCOUNTER 2023-10-10 06:56 | Outpatient (REF) | payer MEDICARE, OTHER, SELFPAY ==
--- NOTE | ~2023-10-10 | XR_ITS ---
EXAMINATION: XR SHOULDER, RIGHT CLINICAL INFORMATION: Pain in right shoulder. COMPARISON: August 29, 2023, August 16, 2023. TECHNIQUE: Three views of the right shoulder. FINDINGS: The bones are diffusely demineralized. Severe degenerative changes in the glenohumeral joint. Mild degenerative changes in the acromioclavicular joint. Redemonstration of nondisplaced transverse fracture at the humeral neck with some interval bridging callus formation. Fracture line is still partially visible. Redemonstration of extensive hypertrophic change along the humeral head with adjacent heterotopic bone formation. XR/XR shoulder RT min 2V IMPRESSION: 1. Redemonstration of nondisplaced transverse fracture at the humeral neck with some interval bridging callus formation. Fracture line is still partially visible. 2. Redemonstration of extensive hypertrophic change along the humeral head with adjacent heterotopic bone formation. 3. Limited visualization due to the extensive degenerative and hypertrophic changes. CT scan could be considered for better visualization based on the clinical assessment.
== END 2023-10-10 06:57 | disposition home or self-care (01) ==
LOC: HO.HOSX 06:56
PROVIDERS: Visit Provider Physician Assistant
DX: M19.011 Primary osteoarthritis, right shoulder (principal); S42.201D Unspecified fracture of upper end of right humerus, subsequent encounter for fracture with routine healing; X58.XXXD Exposure to other specified factors, subsequent encounter
CPT/HCPCS: 73030

== ENCOUNTER 2023-10-10 11:21 | Outpatient (AMB) | payer MEDICARE, OTHER, SELFPAY ==
--- NOTE | 2023-10-10 11:51 | MHC.OFFVIS ---
Vital Signs 10/10/23 11:53 Height 6 ft 5 in Weight 274 lb BMI 32.5 Intake Visit Reasons: ov-Rt prox hum fx w xrays Intake Note: Josiah is a 78 year old right hand dominant male who presents today for a follow up of right proximal humerus fracture, DOI 08/16/23. Patient reports he is doing well, states only discomfort is when he exceeds his limits. He has no concerns today. Allergies iodine Allergy (Verified 10/10/23 11:54) Vomiting HPI HPI ov-Rt prox hum fx w xrays: Details: 78-year-old right hand dominant male who returns to the office today for a follow-up of right shoulder fracture, 08/16/23. He states he has discomfort with working on his ROM however he is doing well otherwise. He has no other concerns today. [facility] Social History Current occupation: right handed Review of Systems Const All systems reviewed & are unremarkable except as noted in HPI and below Physical Exam Vital Signs: BMI result Body Mass Index 32.5 Const General: cooperative, healthy appearing, comfortable, no acute distress, well developed and alert Orientation/consciousness: patient oriented x3 HEENT Head: Yes normal to inspection, Yes normocephalic and Yes atraumatic Eyes General: appearance normal, both eyes and all related structures Resp Effort & Inspection: normal respiratory effort and able to speak in complete sentences Cardio Rate: regular rate Peripheral pulses: Peripheral pulses 2+ throughout GI Palpation (GI): Soft to palpation Skin Lesions: no lesions Rashes: no rashes Neuro General: patient oriented x3 Extrem Other: Right shoulder: Normal to inspection. No Swelling or tenderness over the proximal humerus . Anterior deltoid sensation intact. Elbow and wrist ROM intact. NVI. Results Reviewed Results Reviewed: Xrays were obtained in the office today and personally reviewed by me of the right shoulder show severe ghj oa with non displaced proximal humerus fracture Assessment & Plan Assessment & Plan (1) Closed fracture of right proximal humerus: Code(s): S42.201A - Unspecified fracture of upper end of right humerus, initial encounter for closed fracture Category: Medical (2) Osteoarthritis of right glenohumeral joint: Code(s): M19.011 - Primary osteoarthritis, right shoulder Category: Medical Plan An order physical therapy has been placed to work on ROM, RTC and periscapular stabilization. I would like to see him back in 8 weeks with new x-rays, sooner if needed. Orders: Orders XR shoulder RT min 2V Today M25.511 - Pain in right shoulder PT Evaluation and Treatment Today M19.011 - Primary osteoarthritis, right shoulder, S42.201A - Unspecified fracture of upper end of right humerus, initial encounter for closed fracture Patient Instructions: Scribed for Cyndi Olmstead PA-C, by Tamir Orellana biomedical engineering technician, on 10/10/2023 at 11:30 AM EST.? I, Cyndi Olmstead PA-C, have personally reviewed and agree with the information entered by the scribe. Coding Level of Care Code Global (95435) Diagnoses Closed fracture of right proximal humerus S42.201A Osteoarthritis of right glenohumeral joint M19.011
[2023-10-10 11:53] VITALS: BMI 32.5
== END 2023-10-10 12:09 | disposition home or self-care (01) ==
PROVIDERS: PCP Internal Medicine; Visit Provider Physician Assistant
DX: S42.201A Unspecified fracture of upper end of right humerus, initial encounter for closed fracture (principal); M19.011 Primary osteoarthritis, right shoulder
CPT/HCPCS: 99213

== ENCOUNTER 2023-12-05 09:38 | Outpatient (REF) | payer MEDICARE, OTHER, SELFPAY ==
--- NOTE | ~2023-12-05 | XR_ITS ---
EXAMINATION: XR SHOULDER, RIGHT CLINICAL INFORMATION: Right shoulder pain. COMPARISON: 10/10/2023 TECHNIQUE: Three views of the right shoulder. FINDINGS: Again seen are unchanged very advanced degenerative changes in the shoulder at the glenohumeral joint. Previously seen transverse fracture at the base of the humeral head is not as apparent on the current study. XR/XR shoulder RT min 2V IMPRESSION: Severe degenerative changes in the shoulder with no evidence of an acute fracture. Electronically signed by: Mario Alberto Rdz MD 01/03/2024 09:58 PM EDT
== END 2023-12-05 09:39 | disposition home or self-care (01) ==
LOC: HO.HOSX 09:38
PROVIDERS: Visit Provider Physician Assistant
DX: M19.011 Primary osteoarthritis, right shoulder (principal); S42.294D Other nondisplaced fracture of upper end of right humerus, subsequent encounter for fracture with routine healing
CPT/HCPCS: 73030; 99212

== ENCOUNTER 2023-12-05 09:44 | Outpatient (AMB) | payer MEDICARE, OTHER, SELFPAY ==
--- NOTE | 2023-12-05 09:52 | A.OFFVIS_ITS ---
Vital Signs 12/05/23 09:58 Height 6 ft 5 in Weight 274 lb BMI 32.5 Intake Visit Reasons: ov-Rt prox hum fx f/u Intake Note: Josiah is an 78 year old right hand dominant male who presents today for a follow up of right proximal humerus fracture, DOI 08/16/23. Patient reports he is doing well, states his last session of therapy is today. He is requesting to extend PT as this is helping improve his ROM. Allergies iodine Allergy (Verified 12/05/23 10:02) Vomiting Medication List - Last Reconciled 12/05/23 by Cyndi Olmstead PA-C atenolol 50 mg PO DAILY furosemide mg PO isosorbide mononitrate ER 30 mg PO DAILY omeprazole 20 mg PO DAILY simvastatin 40 mg PO BEDTIME HPI HPI ov-Rt prox hum fx f/u: Details: 78-year-old right hand dominant male who returns to the office today for a follow-up of right shoulder fracture, 08/16/23. He states he has improvement in his pain and is doing well overall. He is working on physical therapy with benefits and he has his last session today. He is requesting to extend physical therapy to help improve his ROM. [facility] Social History Current occupation: right handed Review of Systems Const All systems reviewed & are unremarkable except as noted in HPI and below Physical Exam Vital Signs: BMI result Body Mass Index 32.5 Extrem Other: Right shoulder: Normal to inspection. Forward flexion to 170 degrees, external rotation to 85 degrees, internal rotation to back pocket. No tenderness over the proximal humerus. NVI. Results Reviewed Results Reviewed: Xrays were obtained in the office today and personally reviewed by me of the right shoulder show severe ghj oa with non displaced proximal humerus fracture with interval healing Assessment & Plan Assessment & Plan (1) Osteoarthritis of right glenohumeral joint: Code(s): M19.011 - Primary osteoarthritis, right shoulder Category: Medical (2) Closed fracture of right proximal humerus: Code(s): S42.201A - Unspecified fracture of upper end of right humerus, initial encounter for closed fracture Category: Medical Qualifiers: Encounter type: subsequent encounter Fracture morphology: other fracture Fracture alignment: nondisplaced Fracture healing: with routine healing Qualified Code(s): S42.294D - Other nondisplaced fracture of upper end of right humerus, subsequent encounter for fracture with routine healing Plan He will continue with physical therapy to regain his motion and RTC strength. We discussed the benefits of MRI imaging for his RTC which I feel is not necessary. I explain that with glenohumeral joint arthritis, the only option he is left with is being a candidate for TSA which I feel is not needed given he has no functional ability from it. He does express understanding. He will increase activities as tolerated and if symptoms persist or worsen, patient will contact the office, otherwise follow-up as needed. Orders: Orders XR shoulder RT min 2V Today M25.511 - Pain in right shoulder PT Evaluation and Treatment Today M19.011 - Primary osteoarthritis, right shoulder, S42.201A - Unspecified fracture of upper end of right humerus, initial encounter for closed fracture Patient Instructions: Scribed for Cyndi Olmstead PA-C, by Tamir Orellana biomedical engineering aide, on 12/05/2023 at 9:45 AM EST.? I, Cyndi Olmstead PA-C, have personally reviewed and agree with the information entered by the scribe. Coding Level of Care Code Global (91919) Diagnoses Osteoarthritis of right glenohumeral joint M19.011 Other closed nondisplaced fracture of proximal end of right humerus with routine healing, subsequent encounter S42.294D Encounter type: subsequent encounter Fracture morphology: other fracture Fracture alignment: nondisplaced Fracture healing: with routine healing
[2023-12-05 09:58] VITALS: BMI 32.5
== END 2023-12-05 10:42 | disposition home or self-care (01) ==
PROVIDERS: PCP Internal Medicine; Visit Provider Physician Assistant
DX: M19.011 Primary osteoarthritis, right shoulder (principal); S42.294D Other nondisplaced fracture of upper end of right humerus, subsequent encounter for fracture with routine healing
CPT/HCPCS: 99213

== ENCOUNTER 2024-01-09 10:36 | Outpatient (REF) | payer SELFPAY | END 2024-01-09 10:37 | disposition home or self-care (01) | LOC: HO.HAP 10:36 | PROVIDERS: Visit Provider Internal Medicine | DX: Z13.89 Encounter for screening for other disorder (principal) ==

== ENCOUNTER 2024-01-10 08:35 | Outpatient (REF) | payer SELFPAY | END 2024-01-10 08:36 | disposition home or self-care (01) | LOC: HO.HAP 08:35 | PROVIDERS: Visit Provider Internal Medicine | DX: Z46.1 Encounter for fitting and adjustment of hearing aid (principal); H90.3 Sensorineural hearing loss, bilateral | CPT/HCPCS: 92593; V5267 ==

== ENCOUNTER 2024-01-14 11:00 | Outpatient (RCR) | payer MEDICARE, OTHER, SELFPAY ==
--- NOTE | 2023-10-22 13:08 | MHC.PT.EP ---
[facility] [place] Office [place] Office [place] Office [address] [phone] F: [phone] F: [phone] F: [phone] F: [phone] Physical Therapy Plan of Care Date of Evaluation: 10/22/23 Date of Surgery: Diagnosis: proximal humeral fracture, routine healing with use of a sling Assessment: Pt is an 78yo male referred to PT to help rehabilitate R shoulder s/p fracture. PT exam reveals significant limitation in ROM following immobilization of R shoulder in addition to concomitant arthritis. Skilled PT indicated to teach him HEP to address the significant loss of ER, elevation, and abduction, as well as promotion of RTC and periscap stabilization through strengthening exercises. Manual techniques including hands-on ROM treatment and training to reduce pain, and improve body mechanics/posture indicated to normalize UE use. Pt in agreement with POC and motivated to participate. Frequency and Duration: The patient will be seen 2x/week, x 6 weeks Short Term Goals: 1. Improve R shoulder ER AROM 10 degrees in 3 weeks. 2. Pt will be able to complete standing bicep curls maintaining neutral shoulder rotation without increased pain in 3 weeks. 3. Pt will be I with phase 1 ROM and isometric exercises for R shoulder in 3 weeks. Group Home Goals: 1. In 6 weeks, patient will be able to elevated arm and achieve position to wash/brush hair on back of head without significant difficulty. 2. In 6 weeks, improve periscap strength all planes B/L to >= 4/5 MMT. 3. In 6 weeks, patient will improve score on SPADI by 20 points, indicating overall improved functional UE use and reduced pain. Treatment Plan: Modalities to reduce pain, spasms and effusion. Manual therapy to restore motion and function. Therapeutic exercise to improve strength and flexibility. Neuromuscular re-education for posture and balance. Therapeutic activities to return to functional activities of daily living. Electronically signed by: Krystyna Bethea PT, DPT Please sign and return to therapist. Thank you for your referral.
--- NOTE | 2024-01-14 11:54 | MHC.PT.DC ---
[facility] [place] Office [place] Office [place] Office [address] Derick Birch [address] [phone] F: [phone] F: [phone] F: [phone] F: [phone] Physical Therapy Discharge Report Diagnosis: proximal humeral fracture, routine healing with use of a sling Date of Surgery: Date of Evaluation: 10/22/23 Date of Discharge: 01/14/24 Treatments to Date: 19 Cancellations to Date: 0 No Shows to Date: 0 Discharge Status: Achieved Goals Improved Function Independent with HEP Discharge Summary: Reviewed all exercises and no further questions. He has made good progress with ROM and strength and at this time is d/c to I HEP. Electronically signed by: Rhiannon Metz PT Please sign and return to therapist. Thank you for your referral.
== END 2024-01-14 11:55 | disposition home or self-care (01) ==
LOC: HO.PTCHIC 11:00
PROVIDERS: PCP Internal Medicine; Visit Provider Physician Assistant
DX: S42.201D Unspecified fracture of upper end of right humerus, subsequent encounter for fracture with routine healing (principal); M19.011 Primary osteoarthritis, right shoulder
CPT/HCPCS: 97110; 97140; 97162; 97164

== ENCOUNTER 2024-07-22 13:17 | Outpatient (REF) | payer SELFPAY ==
--- NOTE | 2024-07-23 09:57 | MHC.AU.HA3 ---
Hearing Instrument Follow-Up- Binaural Date of Visit: 07/23/24 Right Ear: Make, Model, Color, Serial Number: Oticon Real 1 miniRITE-R SN: [id number] Color: Black [employer] Instructor Repair Warranty: 07/08/2026 [employer] Instructor Loss and Damage Warranty: 07/08/2026 [facility] Service Plan: OPTED OUT Battery Size: Rechargeable Director Product/Slim Tube: 3/85 Earmold/Dome/CShell/SlimTip:Oticon Soft Silicone with Canal Lock SN: [id number] Type of Wax Guard: miniFit Dispensed By: [facility] Date of Fittin06/25/2023 Left Ear: Make, Model, Color, Serial Number: Oticon REAL 1 miniRITE-R SN:[id number] Color: Black [employer] Instructor Repair Warranty: 07/08/2026 [employer] In[employer] Loss and Damage Warranty: 07/08/2026 [facility] Service Plan: OPTED OUT Battery Size: Rechargeable Director Product/Slim Tube: 3/85 Earmold/Dome/CShell/SlimTip: Oticon Soft Silicone with Canal Lock SN: [id number] Type of Wax Guard: miniFit Dispensed By: [facility] Date of Fittin06/25/2023 Follow-Up Summary: HAs dropped off complaint of only working briefly after charging all night. Found wax guards clogged, mics clogged. Cleaned aids and earmolds, replaced wax guards. Listening check positive. Recommendations: Recommendations: Hearing instrument follow-up or maintenance as needed. Diagnosis Code(s): Primary Diagnosis: H90.3 Bilateral Sensorineural Hearing Loss Signature: Provider: Shilpa Roberson, [facility]
== END 2024-07-22 13:18 | disposition home or self-care (01) ==
LOC: HO.HAP 13:17
PROVIDERS: Visit Provider Internal Medicine
DX: Z13.89 Encounter for screening for other disorder (principal)

== ENCOUNTER 2024-07-23 12:49 | Outpatient (REF) | payer SELFPAY ==
--- OUTSIDE RECORDS SUMMARY | 2024-07-23 15:08 | XMS_ITS ---
Author Organization [facility] [place] Address [address] [place] [address] Care Team Providers Care Swimmer Name Role Phone Maegan DUNHAM, Claudia Jha Primary Care Provider Diana Noel Unavailable [phone] Allergies Allergen (clinical drug ingredient) Drug/Non Drug Allergy documented on EMR Reaction Allergy Type Onset Date Status Iodine nausea and vomiting Drug Allergy Active Adhesive rash Allergy Active REASON FOR VISIT Ingrown Nail, Painful nails Medications Medication SIG (Take, Route, Frequency, Duration) Notes Start Date End Date Status Omeprazole 20 MG as directed A ctive Flonase Not-Taking Albuterol Sulfate 108 (90 Base) MCG/ACT 1 puff as needed Active Aspirin 81 81 MG 1 tablet Act ana Atenolol 25 MG as directed Act ana Ketoconazole 2 % as directed A ctive Nitroglycerin Active Desonide 0.05 % as directed Ac tive Furosemide 80 MG as directed A ctive Isosorbide Mononitrate Active Simvastatin 40 MG as directed Active Famotidine 20 MG as directed A ctive Social History Tobacco Use: Social History Observation Description Date Details (start date - stop date) Former Smoker NA - NA Tobacco Use/Smoking Question Answer Notes Are you a: former smoker Additional Findings: Tobacco Non-User Current no n-smoker Alcohol Screen Question Answer Notes Did you have a drink containing alcohol in the p ast year? Yes Points 0 Interpretation Negative Tobacco use other than smoking: Question Answer Notes Are you an other tobacco user? 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, bilateral legs I70.203 Assessments Encounter Date Diagnosis (ICD Code) Assessment Notes Treatment Notes Treatment Clinical Notes Section Notes 03/13/2024 Ingrown nail (ICD-10 - L60.0) 03/13/2024 Pain in right toe(s) (ICD-10 - M79.674) 03/13/2024 Tinea unguium (ICD-10 - B35.1) 03/13/2024 Pain in left toe(s) (ICD-10 - M79.675) 03/13/2024 Unspecified atherosclerosis of southern ute arteries of extremities, bilateral legs (ICD-10 - I70.203) Plan Of Treatment Pending Test Test Name Order Date 58292-JZFTCOS NAIL, 6 OR MORE 03/13/2024 38122-PXWD SKIN LESIONS, 2 TO 4 03/13/20 24 Next Appt Details Follow Up: 3 Months, Reason: Provider Name:Diana Valdes alexandria, 09/29/2024 03:15:00 PM, [address] [place], [address], Procedure Notes * Category Sub-Category Detail Notes Debride Nail 6-10 Nail debridement Performance o f this nail treatment by a nonprofessional would put this patients foot and overall health at risk. Therefore, debridement to affected nail(s), as described in exam, was performed extensively to reduce/remove overall nail length, girth, thickness, subungual debris, and necrotic tissue, by manual and/or electrical means through the use of a nail nipper and/or dremel-type gear and spline grinder, to a more viable healthy nail plate or bed tissue 6-10. Silver nitrate used for any petechial bleeding as necessary. Definitive antifungal treatment options have been reviewed and discussed with the patient. The patient chooses, no pharmaceutical tx - 02597 Keratoma Treatment Parring or Cutting o f Benign Hyperkeratotic Lesion(s) (-56) 2-4 Lesions - The Benign hyperkeratotic lesions, as described in exam, were pared, and/or cut utilizing a sterile 15 blade, tissue nippers, and/or dremel - 19723, Q8 Progress Notes * CALLAHANJosiah JrDOB:1945 (78 yo M)Acc No.[id number]:03/13/2024 Progress Note Patient:?Josiah CALLAHAN Provider:?Diana Kat DPM :1945???Age:78 Y???Sex:Male Conor e:03/13/2024 Address:[address] [place], [place] [id number] Pcp:Claudia Issa MD Subjective: * Chief Complaints: * ???Ingrown NailPainful nails * HPI: ???Painful Nails:?Pt States Last PCP Visit:?Date:?07/30/2023 ???Ingrown nail:?The ingrown nail has been present?for a week.?The ingrown nail is located?on the left foot.?Onset of the symptoms?was gradual.?Severity of the symptoms?is moderate, tender .?Aggravating factors include?Shoes.? * ROS:?General/Constitutional:?Nausea?denies, denies, denies.?Vomiting?denies, denies, denies.?Hunger Thirst?denies, denies, denies.?Loss appetite?denies, denies, denies.?Chills?denies, denies, denies.?Fatigue?denies, denies, denies.?Fever?denies, denies, denies.?Night Sweats?denies, denies, denies.?Unexplained weight loss?denies, denies, denies.?Unexplained weight gain?denies, denies.?HEENTM:?Dentures?denies.?Dizziness?denies.?Glasses/contacts?denies.?Retinopathy?de nies.?Blurred/double vision?denies.?TMJ?denies.?Discharge/drainage?denies.?Implants?denies.?Sore throat?denies.?Dental implants?denies.?Hard of hearing ?denies.?Difficulty chewing/swallowing/speaking?denies.?Nose bleeds?denies.?Sore mouth?denies.?Respiratory:?On Oxygen?denies.?Pneumonia/pleurisy?denies.?Bronchitis?denies.?Emphysema?denies.?C oughing?denies.?Cough blood?denies.?Shortness of breath?denies.?Wheezing?denies.?Cardiovascular:?Pacemaker?denies.?MVP?denies.?WPW?denies.?CHF?denies.?Heart attack?denies.?Septal defect?denies.?Rapid beat?denies.?Chest pain ?denies.?Atrial Fib.?denies.?Murmur/Palpitations?denies.?Gastrointestinal:?Hemorrhoids?denies.?Stomach/Abdominal pain?denies.?Dark blood stool?denies.?Irritable bowel ?denies.?Constipation?denies.?Diarrhea?denies.?Hematology:?Swelling?denies.?Clots?denies.?Varicose Veins?denies.?Bruising?denies.?Bleeding problem?denies.?Genitourinary:?Blood urine?denies.?Frequent/Painfu/urination/bladder control?denies.?Kidney stones?denies.?Infection (UTI)?denies.?Nephropathy?denies.?sex trans dis (STD)?denies.?Prostate?denies.?Musculoskeletal:?Hammertoes?denies.?Bunions?denies.?Back Pain?denies.?Muscle Cramps/ Resting?denies.?Muscle cramps / walking?denies.?Generalized aches and pains?denies.?Weakness?denies.?Integ.:?Philippe?denies.?Scars?denies.?Corns/calluses?denies.?Ingrown nails?denies.?Painful nails?admits.?Open Sores?denies.?Rashes?denies.?Neurologic:?Difficulty sleeping?denies.?Brain disorder?denies.?Numbness?denies.?Balance trouble?denies.?Confusion?denies.?Fainting/blackouts?denies.?Tingling?denies.?Tr emors?denies.? * Medical History:? * Surgical History:?Denies Pas t Surgical History * Hospitalization/Major Diagno stic Procedure:?[facility], ER, broken arm 08/16/23 * Family History:?Mother: dece ased, diagnosed with Unspecified essential hypertension.?Father: , diagnosed with Other malignant neoplasm of unspecified site, Diabetic - NIDDM.? * Social History:?Tobacco Use:?Tobacco Use/Smoking?Are you a:?former smoker ?Additional Findings: Tobacco Non-User?Current non-smoker ?Tobacco use other than smoking?Are you an other tobacco user??No ???Drugs/Alcohol:?Drugs?Have you used drugs other than those for medical reasons in the past 12 months??No ?Alcohol Screen?Did you have a drink containing alcohol in the past year??Yes ?Points?0 ?Interpretation?Negative ???Miscellaneous:?Caffeine: yes, frequency: 4 to 5 cups or 2 cans per day. ?Children: yes, 3. ?Exercise: yes, walking. ?Marital status: . 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 * Medications:?TakingOmeprazol e 20 MG Capsule Delayed Release as directed Famotidine 20 MG Tablet as directed Simvastatin 40 MG Tablet as directed Nitroglycerin Ketoconazole 2 % Cream as directed Isosorbide Mononitrate Furosemide 80 MG Tablet as directed Desonide 0.05 % Cream as directed Atenolol 25 MG Tablet as directed Aspirin 81 81 MG Tablet Delayed Release 1 tablet Albuterol Sulfate 108 (90 Base) MCG/ACT Aerosol Powder Breath Activated 1 puff as needed Taking Omeprazole 20 MG Capsule Delayed Release as directed Taking Famotidine 20 MG Tablet as directed Taking Simvastatin 40 MG Tablet as directed Taking Nitroglycerin Taking Ketoconazole 2 % Cream as directed Taking Isosorbide Mononitrate Taking Furosemide 80 MG Tablet as directed Taking Desonide 0.05 % Cream as directed Taking Atenolol 25 MG Tablet as directed Taking Aspirin 81 81 MG Tablet Delayed Release 1 tablet Taking Albuterol Sulfate 108 (90 Base) MCG/ACT Aerosol Powder Breath Activated 1 puff as needed Not- Taking/PRNFlonase Medication List reviewed and reconciled with the patientNot-Taking/PRN Flonase Medication List reviewed and reconciled with the patient * Allergies:?Adhesive: rash - AllergyIodine: nausea and vomiting - Allergyyes[Allergies Verified] Objective: * Vitals:?Ht: 5 ft 10 in, Wt: 265, BMI: 38.02, Shoe size: 10, BP: 135/54 mm Hg, Ht-cm: 177.8 cm, Wt-k.2 kg. * Examination: ???General Examination: ?GENERAL APPEARANCE:?pleasant, alert, well nourished, well developed, well hydrated, with good attention to hygene/body habitus, and in no acute distress.?ORIENTED:?person,place, and time.?Vascular: ?DP PULSES(B):?0/4, B/L.?PT PULSES(B):?0/4, B/L.?CAPILLARY FILL TIME:?3 secs. per digit, B/L.?TROPHIC CONDITION-TEXTURE/ELASTICITY/TURGOR/HAIR GROWTH(B):?decreased, B/L.?TEMPERTURE GRADIENT(C):?decreased, cool to cold, proximal to distal, B/L.?PIGMENTATION:?brawny, B/L.?EDEMA(C):?3/4 , pitting , B/L , Foot , Ankle(s) , Leg(s).?VARICOSITIES:?absent.?Nails: ?NAILS are:?elongated,overgrown,dystrophic,greater than 3mm thick,discolored and friable with crumbly malodorous subungual debris, with pain on palpation , TA, T2, T3, T4, T5, T6, T7, T8, T9.?Ingrown Nail: ?INSPECTION:?Reveals nail incurvation, pain on palpation, groove hypertrophy, T1, medial border.?Dermatologic: ?SKIN FINDINGS:?Skin exam reveals Keratotic lesion(s) located at , Plantar , Heel(s) , B/L.?Orthopedic: ?MUSCLE STRENGTH:?5/5 all groups in a symmetrical fashion , B/L.?GAIT ABNORMALITY:?pronated, abducted, B/L.? Assessment: * Assessment: 1.?Ingrown nail - L60.0???Sp ecify :Medial border, T1,? 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 Plan: * Treatment: 2.?Unspecified atheroscleros is of southern ute arteries of extremities, bilateral legs?Procedure: 42605-EZNG SKIN LESIONS, 2 TO 4 * Procedures:?Debride Nail 6-10:?Nail debridement?Performance of this nail treatment by a nonprofessional would put this patients foot and overall health at risk. Therefore, debridement to affected nail(s), as described in exam, was performed extensively to reduce/remove overall nail length, girth, thickness, subungual debris, and necrotic tissue, by manual and/or electrical means through the use of a nail nipper and/or dremel-type gear and spline grinder, to a more viable healthy nail plate or bed tissue 6-10. Silver nitrate used for any petechial bleeding as necessary. Definitive antifungal treatment options have been reviewed and discussed with the patient. The patient chooses, no pharmaceutical tx - 08505.?Keratoma Treatment:?Parring or Cutting of Benign Hyperkeratotic Lesion(s)?(-56) 2-4 Lesions - The Benign hyperkeratotic lesions, as described in exam, were pared, and/or cut utilizing a sterile 15 blade, tissue nippers, and/or dremel - 11532, Q8.? * Procedure Codes:?26148 DEBRI DE NAIL, 6 OR MORE, Modifiers: XS 81075 TRIM SKIN LESIONS, 2 TO 4, Modifiers: XS , Q8 * Preventive Medicine:? ??Counseling:?Discussion:?-13: Office or other outpatient visit for the evaluation and management of an established patient, which required a medically appropriate history and/or examination and LOW level of DECISION MAKING for: 1 STABLE ACUTE UNCOMPLICATED PROBLEM, 2 OR MORE MINOR PROBLEMS, OR 1 STABLE CHRONIC PROBLEM, THAT POSE(S) A LOW RISK FOR MORBIDITY/MORTALITY. The visit on the day of the encounter encompassed interpreting the data and educating the patient as to the nature of their condition, treatment options available according to their individual PMH, meds, allergies, and overall health/living conditions, as well as any potential risks or complications that may occur from a failure to adhere to, and participate in, the recommended course of therapy. The discussion included a complete verbal, and/or written explanation of the examination results, any x-rays taken, the proposed diagnosis, and outline of the treatment plan. A schedule for future care needs was also explained. The patient verbalized an understanding of the instructions at this time and agreed to be an active participant in their treatment. If the patient should think of any questions or concerns after the visit, I have encouraged the patient to call the office.?Abscess/Paraonychia/Ingrown Nails:?We discussed the possible etiologies (genetic, improper nail care, shoe gear, nail trauma) which may lead to ingrown nails. We discussed and reviewed palliative/nonsurgical/deferring definitive treatment (vs) undergoing the treatment procedures of nail avulsion(s) or PNA, which may prevent recurrence and give more lasting results. The possible risks/complications such as worsened condition/delayed healing/nonhealing/failure/recurrence/infection, the potential benefits/advantages of decreased pain/deformity, as well as alterative treatment options including applying nail softening agents/nail groove packing were discussed. No guarantees were given regarding any outcome for any procedure. The patient was educated in the length of time for the affected nail to regrow once completely healed from a nail avulsion procedure. Once the condition has completely healed, the patient was consulted on proper nail care. Patient questions such as details of each procedure, varying time to heal, activity post procedure, and shoe gear were discussed and the answers were verbally confirmed fully understood, slant back performed with good relief of pain, pt to monitor for any signs of infection, pt should soak in warm water and epsom salts and apply antibotic ointment, call with any issues.? * Follow Up:?3 Months * Images: * Sign off status: Completed true * Provider:?Diana Kat DPM Date:?05/13/2023 Generated for Latrice smith/Mera/Princess on:?07/23/2024 03:08 PM EDT History and Physical Notes * HPI (History of Present Illness) Category Sub-Category Detail Notes Category Not es Ingrown nail The ingrown nail has been present for a w [place] The ingrown nail is located on the left foot Onset of the symptoms was gradual Severity of the symptoms is moderate, t diana Aggravating factors include Shoes Painful Nails Pt States Last PCP Visit: Date:: 07/30/2023 Examination Category Sub-Category Detail Notes Category Not es Ingrown Nail INSPECTION: Reveals nail inc urvation, pain on palpation, groove hypertrophy, T1, medial border Dermatologic SKIN FINDINGS: Skin exam reveal s Keratotic lesion(s) located at , Plantar , Heel(s) , B/L Orthopedic GAIT ABNORMALITY: pronated, abducted, B/L MUSCLE STRENGTH: 5/5 all groups in a symmetrical fashion , B/L General Examination GENERAL APPEARANCE: pleasant , alert, well nourished, well developed, well hydrated, with good attention to hygene/body habitus, and in no acute distress ORIENTED: person,place, and ti me Vascular DP PULSES (B): 0/4, B/L PT PULSES (B): 0/4, B/L CAPILLARY FILL TIME: 3 secs. per digit, B/L TEMPERTURE GRADIENT (C): decreased, cool to cold, proximal to distal, B/L TROPHIC CONDITION-TEXTURE/ELASTICITY/TURGOR/HAIR GROWTH (B): decreased, B/L EDEMA (C): 3/4 , pitting , B/L , Foot , Ankle(s) , Leg(s) VARICOSITIES: absent PIGMENTATION: brawny, B/L Nails NAILS are: elongated,overgr own,dystrophic,greater than 3mm thick,discolored and friable with crumbly malodorous subungual debris, with pain on palpation , TA, T2, T3, T4, T5, T6, T7, T8, T9
--- OUTSIDE RECORDS SUMMARY | 2024-07-23 15:08 | XMS_ITS | Encounter Summary ---
Author Organization [facility] Address [address] [place] [address] Care Team Providers Care Devops Consultant Name Role Phone Claudia Issa MD Primary Care Provider [phone] Reason for Visit * Reason Onset Date Comments orders 07/15/2024 Encounter Details Date Type Department Care Team (Late st Contact Info) Description 07/15/2024 Telephone Adult Medicine [facility] [address] [place] [id number] Claudia Issa MD [address], [place] [phone] orders Social History Tobacco Use Types Packs/Day Years Used Date Smoking Tobacco: Former Smokeless Tobacco: Never Alcohol Use Standard Drinks/Week Comments Yes 1 (1 standard drink = 0.6 oz pur e alcohol) Sex and Gender Information Value Date Recorded Sex Assigned at Male 06/17/2024 11:32 AM EST Legal Sex Male 9:28 AM EST Gender Identity Male 06/17/2024 11:32 AM EST Sexual Orientation Not on file documented as of this encounter Progress Notes * Berna Greco MA - 07/17/2024 4:29 PM EDT I called and spoke with Mr Torres and he sts he is unable to get here before Sunday so he will do them either before or after his appointment * Jonas Murcia NP - 07/17/2024 4:15 PM EDT Chris is on vacation. I will place routine labs. Please call patient and notify him that labs order was sent. He is to complete lab prior to his appointment with Chris on 07/21/2024. Thanks * Harini Castaneda - 07/15/2024 1:42 PM EDT Patient is requested labs for all routine labs, he has an appt with Chris Gruber on 07/21/24. Please call patient when labs have been ordered documented in this encounter Plan of Treatment Upcoming Encounters Date Type Department Care Team (Late st Contact Info) Description 07/29/2024 1:45 PM EDT Appointment Radiology Department - [address] [phone] 01/26/2025 9:00 AM EDT Office Visit Adult Medicine [facility] - [address] [phone] Claudia Issa MD [address] [place] [address] 06/24/2025 1:15 PM EST Office Visit Nephrology - [address] [phone] Amarjit Neff MD [address] [address] documented as of this encounter Results * (ABNORMAL) Basic metabolic panel (07/18/2024 1:38 PM EDT) Sodium 138 133 - 145 mmol/L LAB CHEMISTRY METHOD 07/18/2024 6:01 PM EDT [facility] Potassium 4.0 3.5 - 5.5 mmol/L LAB CHEMISTRY METHOD 07/18/2024 6:01 PM [facility] Chloride 100 96 - 110 mmol/L LAB CHEMISTRY METHOD 07/18/2024 6:01 PM [facility] CO2 32 21 - 32 mmol/L LAB CHEMISTRY METHOD 07/18/2024 6:01 PM [facility] Anion Gap 6 3 - 11 LAB CHEMISTRY METHOD 07/18/2024 6:01 PM [facility] Glucose 143(H) 70 - 100 mg/dL LAB CHEMISTRY METHOD 07/18/2024 6:01 PM [facility] BUN 19 5 - 25 mg/dL LAB CHEMISTRY METHOD 07/18/2024 6:01 PM [facility] Creatinine 1.28 0.70 - 1.30 mg/dL LAB CHEMISTRY METHOD 07/18/2024 6:01 PM [facility] eGFR 56(L) >=60 mL/min/1. 73m2 LAB CHEMISTRY METHOD 07/18/2024 6:01 PM [facility] Comment:Calculation based on the??Chronic Kidney Disease Epidemiology Collaboration (CKD-EPI) equation refit??without adjustment for race. BUN/Creatinine Ratio 14.8 LAB CHEMISTRY METHOD 07/18/2024 6:01 PM [facility] Calcium 9.3 8.5 - 10.5 mg/dL LAB CHEMISTRY METHOD 07/18/2024 6:01 PM T [facility] Blood Venous blood specimen / Unknown Venipuncture / Unknown 07/18/2024 1:38 PM EDT 07/18/2024 1:38 PM EDT us Jonas Murcia NP LAB BLOOD ORDERABLES Final R esult [facility] [address] [place] [address], * Hemoglobin A1c (07/18/2024 1:38 PM EDT) Hemoglobin A1C 5.8 <6.5 % LAB CHEMISTRY METHOD 07/18/2024 10:08 PM EDT [facility] Mean Bld Glu Estim. 120 mg/dL LAB CHEMISTRY METHOD 07/18/2024 10:08 PM EDT [facility] Blood Venous blood specimen / Unknown Venipuncture / Unknown 07/18/2024 1:38 PM EDT 07/18/2024 1:38 PM EDT Jonas Murcia CUSTOMER ADVISOR LAB BLOOD ORDERABLES Final R esult [facility] [address] [place] [address], [place] [phone] documented in this encounter Visit Diagnoses Diagnosis Hypertension, unspecified type- Primary Prediabetes Other abnormal glucose documented in this encounter Care Teams Devops Consultant Relationship Specialty Start Date End Date Claudia Issa MD [address] [place] [address] PCP - General Internal Medicine 12/01/14 documented as of this encounter
--- OUTSIDE RECORDS SUMMARY | 2024-07-23 15:08 | XMS_ITS ---
Author Organization [facility] [place] Address [address] [place] [address] Care Team Providers Care Quality Analyst Name Role Phone Maegan DUNHAM, Claudia Jha Primary Care Provider Mayte guerrero Christel Katine Unavailable [phone] Lucy Higginbotham Unavailable [phone] Allergies Allergen (clinical drug ingredient) Drug/Non Drug Allergy documented on EMR Reaction Allergy Type Onset Date Status Iodine nausea and vomiting Drug Allergy Active Adhesive rash Allergy Active REASON FOR VISIT At Risk Footcare, Painful Nail(s) aggravated by shoes and causing difficulty standing/walking. Medications Medication SIG (Take, Route, Frequency, Duration) Notes Start Date End Date Status Desonide 0.05 % as directed Ac tive Atenolol 25 MG as directed Act ana Aspirin 81 81 MG 1 tablet Act ana Albuterol Sulfate 108 (90 Base) MCG/ACT 1 puff as needed Active Flonase Not-Taking Isosorbide Mononitrate Active Furosemide 80 MG as directed A ctive Simvastatin 40 MG as directed Active Nitroglycerin Active Ketoconazole 2 % as directed A ctive Omeprazole 20 MG as directed A ctive Famotidine 20 MG as directed A ctive Social History Tobacco Use: Social History Observation Description Date Details (start date - stop date) Never Smoker NA - NA Tobacco use other than smoking: Question Answer Notes Are you an other tobacco user? No Tobacco Control (Standard) Question Answer Notes Tobacco use: Nonsmoker Additional Findings: Tobacco non-user Current no nsmoker AUDIT-C (Standard) Question Answer Notes Did you have a drink contain ing alcohol in the past year? Yes How often did you have a dri nk containing alcohol in the past year? Monthly or less (1 point) How many drinks did you have on a typical day when you were drinking in the past year? 1 or 2 drinks (0 point) How often did you have six o r more drinks on one occasion in the past year? Less than monthly (1 point) Points 2 Interpretation Negative Problems Problem Type SNOMED Code ICD Code Onset Dates Problem Status W/U Status Risk Notes Problem Atherosclerosis of nikolski artery of both lower extremities, with unspecified presence of clinical manifestation (I70.203) Active confirmed Q7(A), Q8(2B), Q9(1B,2C) Vital Signs Height 5 ft 10 in in 06/12/2024 Weight 265 lbs 06/12/2024 BMI 38.02 kg/m2 06/12/2024 Blood pressure systolic 135 mm Hg 06/12/19 25 Blood pressure diastolic 50 mm Hg 025 Encounters Encounter Location Date Provider Diagnosis [facility] [address] 06/12/2024 Lucy Higginbotham Atherosclerosis of nikolski artery of both lower extremities, with unspecified presence of clinical manifestation I70.203 ; Tinea unguium B35.1 ; Pain in right toe(s) M79.674 and Pain in left toe(s) M79.675 Assessments Encounter Date Diagnosis (ICD Code) Assessment Notes Treatment Notes Treatment Clinical Notes Section Notes 06/12/2024 Atherosclerosis of nikolski artery of both lower extremities, with unspecified presence of clinical manifestation (ICD-10 - I70.203) Q7(A), Q8(2B), Q9(1B,2C) 06/12/2024 Tinea unguium (ICD-10 - B35.1) 06/12/2024 Pain in right toe(s) (ICD-10 - M79.674) 06/12/2024 Pain in left toe(s) (ICD-10 - M79.675) Plan Of Treatment Next Appt Details Follow Up: 3 Months, Reason: Provider Name:Diana ibrahim, 09/29/2024 03:15:00 PM, [address] [place], [address], Procedure Notes * Category Sub-Category Detail Notes Debride Nail 6-10 Nail debridement Due to the cl inical pathology outlined in the exam findings, performance of this nail treatment is medically necessary as its management by an unskilled/untrained nonprofessional would put this patients foot and overall health at risk. Therefore, debridement to affected nail(s), as described in exam ( TA, T1, T2, T3, T4, T5, T6, T7, T8, T9, ), was performed exclusively by the physician of record to reduce/remove overall nail length, girth, thickness, subungual debris, and necrotic tissue, by manual and/or electrical means through the use of a nail nipper and/or dremel-type lap grinder, to a more viable healthy nail plate or bed tissue 6-10 nails in total. Silver nitrate was used for any petechial bleeding as necessary. Definitive antifungal treatment options, both pharmaceutical and surgical, have been reviewed and discussed with the patient. The patient solely prefers the use of intermittent/as needed professional debridement services for their nail condition and understands the need for additional periodic treatments to maintain effectiveness in symptomatic relief - 24112 Keratoma Treatment Parring or Cutting o f Benign Hyperkeratotic Lesion(s) (-56) 2-4 Lesions - Due to the at risk nature of the patients medical condition as documented in the exam findings, performance of this keratoderma treatment is medically necessary as its management by an unskilled/untrained nonprofessional would put this patients foot and overall health at risk. Therefore, the benign hyperkeratotic lesions, ( 4 ) in total, locations as stated and described in the exam ( TA, T5, Plantar Heel(s), B/L ), were pared, and/or cut utilizing a sterile 15 blade, tissue nippers, and/or power dremel instrumentation by the physician of record - 41847 Progress Notes * Josiah CALLAHAN JrDOB:1945 (79 yo M)Acc No.[id number]:06/12/2024 Progress Note Patient:?Josiah CALLAHAN Jr Provider:?Lucy Higginbotham DPM :1945???Age:79 Y???Sex:Male Conor e:06/12/2024 Address:[address] [place], [place] [id number] Pcp:Claudia Issa MD Subjective: * Chief Complaints: * ???At Risk FootcarePainful N ail(s) aggravated by shoes and causing difficulty standing/walking. * HPI: ???At Risk footcare:?Pt States Last PCP Visit:?Date?04/17/2024 * ROS:?General/Constitutional:?Nausea?denies.?Vomiting?denies.?Hunger Thirst?denies.?Loss appetite?denies.?Chills?denies.?Fatigue?denies.?Fever?denies.?Night Sweats?denies.?Unexplained weight loss?denies.?Unexplained weight gain?denies.?HEENTM:?Dentures?denies.?Dizziness?denies.?Glasses/contacts?denies.?Retinopathy?de nies.?Blurred/double vision?denies.?TMJ?denies.?Discharge/drainage?denies.?Implants?denies.?Sore throat?denies.?Dental implants?denies.?Hard of hearing ?denies.?Difficulty chewing/swallowing/speaking?denies.?Nose bleeds?denies.?Sore mouth?denies.?Respiratory:?On Oxygen?denies.?Pneumonia/pleurisy?denies.?Bronchitis?denies.?Emphysema?denies.?C oughing?denies.?Cough blood?denies.?Shortness of breath?denies.?Wheezing?denies.?Cardiovascular:?Pacemaker?denies.?MVP?denies.?WPW?denies.?CHF?denies.?Heart attack?denies.?Septal defect?denies.?Rapid beat?denies.?Chest pain ?denies.?Atrial Fib.?denies.?Murmur/Palpitations?denies.?Gastrointestinal:?Hemorrhoids?denies.?Stomach/Abdominal pain?denies.?Dark blood stool?denies.?Irritable bowel ?denies.?Constipation?denies.?Diarrhea?denies.?Hematology:?Swelling?denies.?Clots?denies.?Varicose Veins?denies.?Bruising?denies.?Bleeding problem?denies.?Genitourinary:?Blood urine?denies.?Frequent/Painfu/urination/bladder control?denies.?Kidney stones?denies.?Infection (UTI)?denies.?Nephropathy?denies.?sex trans dis (STD)?denies.?Prostate?denies.?Musculoskeletal:?Hammertoes?denies.?Bunions?denies.?Back Pain?denies.?Muscle Cramps/ Resting?denies.?Muscle cramps / walking?denies.?Generalized aches and pains?denies.?Weakness?denies.?Integ.:?Philippe?denies.?Scars?denies.?Corns/calluses?denies.?Ingrown nails?denies.?Painful nails?denies.?Open Sores?denies.?Rashes?denies.?Neurologic:?Difficulty sleeping?denies.?Brain disorder?denies.?Numbness?denies.?Balance trouble?denies.?Confusion?denies.?Fainting/blackouts?denies.?Tingling?denies.?Tr emors?denies.? * Medical History:? * Surgical History:?Denies Pas t Surgical History * Hospitalization/Major Diagno stic Procedure:?[facility], ER, broken arm 08/16/23 * Family History:?Mother: dece ased, diagnosed with Unspecified essential hypertension.?Father: , diagnosed with Diabetic - NIDDM, Other malignant neoplasm of unspecified site.? * Social History:?Tobacco Use:?Tobacco use other than smoking?Are you an other tobacco user??No ?Tobacco Control (Standard)?Tobacco use:?Nonsmoker ?Additional Findings: Tobacco non-user?Current nonsmoker ???Drugs/Alcohol:?Drugs?Have you used drugs other than those for medical reasons in the past 12 months??No ???Miscellaneous:?Caffeine: yes, frequency: 4 to 5 cups or 2 cans per day. ?Children: yes, 3. ?Exercise: yes, walking. ?Marital status: . ?Occupation: Retired/ [employer]. ???Drug/Alcohol:?AUDIT-C (Standard)?Did you have a drink containing alcohol in the past year??Yes ?How often did you have a drink containing alcohol in the past year??Monthly or less (1 point) ?How many drinks did you have on a typical day when you were drinking in the past year??1 or 2 drinks (0 point) ?How often did you have six or more drinks on one occasion in the past year??Less than monthly (1 point) ?Points?2 ?Interpretation?Negative * Medications:?TakingOmeprazol e 20 MG Capsule Delayed [...] 265, BMI: 38.02, Shoe size: 10, BP: 135/50 mm Hg, Ht-cm: 177.8 cm, Wt-k.2 kg. * Examination: ???Vascular: ?DP PULSES (B):? 0/4, B/L.?PT PULSES (B):? 0/4, B/L.?CAPILLARY FILL TIME:? delayed, all digits, B/L.?TROPHIC CONDITION-TEXTURE/ELASTICITY/TURGOR/HAIR GROWTH (B):? decreased, fragile, thin, shiny skin, with sparse to absent hair growth, B/L.?TEMPERTURE GRADIENT (C):? decreased, cool to cool, proximal to distal, B/L.?PIGMENTATION:?pale, B/L.?Nails: ?NAILS are:? Elongated, overgrown, dystrophic, lytic, greater than 3mm thick, discolored and friable with crumbly malodorous subungual debris, with pain on palpation,?TA, T1, T2, T3, T4, T5, T6, T7, T8, T9.?Dermatologic: ?SKIN FINDINGS:?Skin exam reveals Keratotic lesion(s) located at , TA, T5, Plantar Heel(s), B/L.?Orthopedic: ?MUSCLE STRENGTH:?5/5 all groups in a symmetrical fashion, B/L.?Neurological: ?SENSORY:?Neurological exam reveals intact sensorium, pain sensation normal, vibration sensation intact, pinprick sensation is normal in the lower extremities, Pt denies, anesthesia, burning, paresthesia, tingling, B/L.?General Examination: ?GENERAL APPEARANCE:?Reveals a pleasant, alert, well nourished, well- developed, well hydrated individual, who demonstrates proper attention to hygiene/body habitus, and is in no acute distress, Pt serves as own historian for office visit today.?ORIENTED:?person, place, and time.? Assessment: * Assessment: 1.?Atherosclerosis of nikolski artery of both lower extremities, with unspecified presence of clinical manifestation - I70.203 (Primary)???Notes :Q7(A), Q8(2B), Q9(1B,2C)???2.?Tinea unguium - B35.1???3.?Pain in right toe(s) - M79.674???4.?Pain in left toe(s) - M79.675??? Plan: * Treatment: * Procedures:?Debride Nail 6-10:?Nail debridement?Due to the clinical pathology outlined in the exam findings, performance of this nail treatment is medically necessary as its management by an unskilled/untrained nonprofessional would put this patients foot and overall health at risk. Therefore, debridement to affected nail(s), as described in exam ( TA, T1, T2, T3, T4, T5, T6, T7, T8, T9, ), was performed exclusively by the physician of record to reduce/remove overall nail length, girth, thickness, subungual debris, and necrotic tissue, by manual and/or electrical means through the use of a nail nipper and/or dremel-type lap grinder, to a more viable healthy nail plate or bed tissue 6- 10 nails in total. Silver nitrate was used for any petechial bleeding as necessary. Definitive antifungal treatment options, both pharmaceutical and surgical, have been reviewed and discussed with the patient. The patient solely prefers the use of intermittent/as needed professional debridement services for their nail condition and understands the need for additional periodic treatments to maintain effectiveness in symptomatic relief - 54120.?Keratoma Treatment:?Parring or Cutting of Benign Hyperkeratotic Lesion(s)?(-56) 2-4 Lesions - Due to the at risk nature of the patients medical condition as documented in the exam findings, performance of this keratoderma treatment is medically necessary as its management by an unskilled/untrained nonprofessional would put this patients foot and overall health at risk. Therefore, the benign hyperkeratotic lesions, ( 4 ) in total, locations as stated and described in the exam (?TA,?T5,?Plantar Heel(s),?B/L?), were pared, and/or cut utilizing a sterile 15 blade, tissue nippers, and/or power dremel instrumentation by the physician of record - [id number].? * Procedure Codes:?59719 DEBRI DE NAIL, 6 OR MORE, Modifiers: XS 21849 TRIM SKIN LESIONS, 2 TO 4, Modifiers: XS , Q8 * Follow Up:?3 Months * Images: * Sign off status: Completed true * Provider:?Lucy Higginbotham, SHANKAR Date:? Generated for Latrice smith/Mera/Princess on:?07/23/2024 03:07 PM EDT History and Physical Notes * HPI (History of Present Illness) Category Sub-Category Detail Notes Category Not es At Risk footcare Pt States Last PCP Visit: Date: 4 Examination Category Sub-Category Detail Notes Category Not es Neurological SENSORY: Neurological exa m reveals intact sensorium, pain sensation normal, vibration sensation intact, pinprick sensation is normal in the lower extremities, Pt denies, anesthesia, burning, paresthesia, tingling, B/L Dermatologic SKIN FINDINGS: Skin exam reveal s Keratotic lesion(s) located at , TA, T5, Plantar Heel(s), B/L Orthopedic MUSCLE STRENGTH: 5/5 all groups in a symmetrical fashion, B/L General Examination GENERAL APPEARANCE: Reveals a pleasant, alert, well nourished, well-developed, well hydrated individual, who demonstrates proper attention to hygiene/body habitus, and is in no acute distress, Pt serves as own historian for office visit today ORIENTED: person, place, and t dawit Vascular DP PULSES (B): 0/4, B/L PT PULSES (B): 0/4, B/L CAPILLARY FILL TIME: delayed, all digits , B/L TEMPERTURE GRADIENT (C): decreased, cool to cool, proximal to distal, B/L TROPHIC CONDITION-TEXTURE/ELASTICITY/TURGOR/HAIR GROWTH (B): decreased, fragile, thin, shiny skin, wi th sparse to absent hair growth, B/L PIGMENTATION: pale, B/L Nails NAILS are: Elongated, overg rown, dystrophic, lytic, greater than 3mm thick, discolored and friable with crumbly malodorous subungual debris, with pain on palpation, TA, T1, T2, T3, T4, T5, T6, T7, T8, T9
--- OUTSIDE RECORDS SUMMARY | 2024-07-23 15:08 | XMS_ITS | Encounter Summary ---
[facility] Address [address] [place] [address] Care Team Providers Care Charging Car Operator Name Role Phone Claudia Issa MD Primary Care Provider [phone] Reason for Referral * Imaging (Routine) - Authorized Specialty Diagnoses / Procedures Referred By Yola cruz Referred To Contact Radiology Diagnoses Mass of left axilla Procedures US Axilla (Breast) Limited Left Chris Gruber PA [address] [place] [address] Phone: tel: fax: [address] Phone: tel: Referral ID Status Reason Start Date Expiration Date V isits Requested Visits Authorized [id number] Authorized 07/21/2024 07/21/2025 1 1 Encounter Details Date Type Department Care Team (Late st Contact Info) Description 07/21/2024 Telephone Adult Medicine [address] [phone] Chris Gruber PA [address] [place] [address] Social History Tobacco Use Types Packs/Day Years [...] as of this encounter Progress Notes * CARMELINA Low - 07/21/2024 5:34 PM EDT Spoke with pt. documented in this encounter Plan of Treatment Upcoming Encounters Date Type Department Care Team (Late st Contact Info) Description 07/29/2024 1:45 PM EDT Appointment Radiology Department - [address] [phone] 01/26/2025 9:00 AM EDT Office Visit Adult Medicine [address] [phone] Claudia Issa MD [address] [place] [address] 06/24/2025 1:15 PM EST Office Visit Nephrology - [address] [phone] Amarjit Neff MD [address] [facility] [place] [address] [place] [address] Scheduled Orders Name Type Priority Associated Diagnoses Orde r Schedule US Axilla (Breast) Limited Left Imaging Routine Mass of left axilla Expected: 07/21/2024, Expires: 07/21/2025 documented as of this encounter Visit Diagnoses Diagnosis Mass of left axilla- Primary documented in this encounter Care Teams Charging Car Operator Relationship Specialty Start Date End Date Claudia Issa MD [address] [place] [address] PCP - General Internal Medicine 12/01/14 documented as of this encounter
--- OUTSIDE RECORDS SUMMARY | 2024-07-23 15:08 | XMS_ITS | Encounter Summary ---
Author Organization [facility] Address [address] [place] [address] Care Team Providers Care Range Operator Name Role Phone Claudia Issa MD Primary Care Provider [phone] Encounter Details Date Type Department Care Team (Latest Contact Info) Description 07/21/2024 9:07 AM EDT - 07/21/2024 11:59 PM EDT Hospital Encounter [facility] [address] [place] [id number] Left arm pain; Neck pain on left side Discharge Disposition: Home or Self Care Social History Tobacco Use Types Packs/Day Years [...] on file documented as of this encounter Medications at Time of Discharge acetaminophen (TYLENOL) 500 mg tablet Take 1 Tablet by mouth every 6 hours as needed. 1 tablet daily albuterol HFA (PROAIR HFA ; PROVENTIL HFA ; VENTOLIN HFA) 90 mcg/actuation inhaler Inhale 2 puffs by mouth 4 (four) times a day if needed for wheezing. 6.7 g 07/21/2024 aspirin 81 mg EC tablet 1 CAPSULE DAILY 06/06/2007 atenoloL (TENORMIN) 50 mg tablet TAKE 1 TABLET BY MOUTH 1 TIME EACH DAY. 90 tablet 1 06/23/2024 cetirizine (ZyrTEC) 10 mg capsule Take by mouth daily. desonide (DESOWEN) 0.05 % cream Apply sparingly to affected areas 1 - 2 times a day as needed 01/22/2014 fluticasone HFA (FLOVENT HFA) 110 mcg/actuation inhalerIndication s:Chronic cough Inhale 1 puff by mouth 2 (two) times a day. Rinse mouth with water after use to reduce aftertaste and incidence of candidiasis. Do not swallow. 12 g 5 07/21/2024 furosemide (LASIX) 80 mg tablet TAKE 1/2 TABLET BY MOUTH DAILY 45 tablet 3 06/23/2024 isosorbide mononitrate (IMDUR) 30 mg 24 hr tablet TAKE 1 TABLET BY MOUTH EVERY DAY 90 tablet 05/06/2024 omeprazole (PriLOSEC) [address] capsule TAKE 1 CAPSULE BY MOUTH EVERY DAY 90 capsule 1 05/06/2024 simvastatin (ZOCOR) 40 mg tablet TAKE 1 TABLET BY MOUTH EVERYDAY AT BEDTIME 90 tablet 3 03/20/2024 documented as of this encounter Discharge Disposition Disposition Code Departure Means Destination Home or Self Care documented in this encounter Plan of Treatment Upcoming Encounters Date Type Department Care Team (Late st Contact Info) Description 07/29/2024 1:45 PM EDT Appointment Radiology Department - [address] [phone] 01/26/2025 9:00 AM EDT Office Visit Adult Medicine [place] - [address] [phone] Claudia Issa MD [address] [place] [address] 06/24/2025 1:15 PM EST Office Visit Nephrology - [address] [phone] Amarjit Neff MD [address] [address] documented as of this encounter Procedures Procedure Name Priority Date/Time Associated Diagnosis Comments XR CERVICAL SPINE 4-5 VIEWS Routine 07/21/2024 9:19 AM EDT Left arm pain Neck pain on left side documented in this encounter Results * XR Cervical Spine 4-5 Views (07/21/2024 9:19 AM EDT) Anatomical Region Laterality Modality Spine, C-spine Radiographic Gertrudis ging 07/21/2024 9:46 AM EDT Narrative 07/21/2024 9:47 AM EDT Cervical spine, 4 views. History left neck and arm pain. There is straightening of the usual cervical lordosis probably due to muscle spasm. Vertebral bodies are maintained in height. There is severe narrowing of the disc spaces at C5-6 and C6-7 levels. There are degenerative changes in the uncovertebral joints and facet joints at multiple levels. There is severe narrowing of the right C4 neural foramen and moderate narrowing of the right C5 neural foramen. There is severe narrowing of the left C4 neural foramen as well as mild narrowing of the left C6 and C7 neural foramina. No evidence of fractures or dislocations. CONCLUSIONS: Multilevel bony and discs degenerative changes. Suggestion of muscle spasm. -------- FINAL REPORT -------- Dictated By: Maria A Becerril Dictated Date: 07/21/2024 09:46 ET Assigned Physician: Maria A Becerril Reviewed and Electronically Signed By: Maria A Becerril Signed Date: 07/21/2024 09:47 ET Workstation ID: [id number] Transcribed By: Self Edit Transcribed Date: 07/21/2024 09:46 ET Procedure Note Maria A Becerril MD - 07/21/2024 Cervical spine, 4 views. History left neck and arm pain. There is straightening of the usual cervical lordosis probably due tomuscle spasm. Vertebral bodies are maintained in height. There is severenarrowing of the disc spaces at C5-6 and C6-7 levels. There aredegenerative changes in the uncovertebral joints and facet joints atmultiple levels. There is severe narrowing of the right C4 neural foramenand moderate narrowing of the right C5 neural foramen. There is severenarrowing of the left C4 neural foramen as well as mild narrowing of theleft C6 and C7 neural foramina. No evidence of fractures ordislocations. CONCLUSIONS: Multilevel bony and discs degenerative changes. Suggestion ofmuscle spasm. -------- FINAL REPORT -------- Dictated By: Maria A Becerril Dictated Date: 07/21/2024 09:46 ET Assigned Physician: Maria A Becerril Reviewed and Electronically Signed By: Maria A Becerril Signed Date: 07/21/2024 09:47 ET Workstation ID: [id number] Transcribed By: Self Edit Transcribed Date: 07/21/2024 09:46 ET Chris COSME IMG XR PROCEDURES Final Result documented in this encounter Visit Diagnoses Diagnosis Left arm pain Pain in soft tissues of limb Neck pain on left side documented in this encounter Care Teams Range Operator Relationship Specialty Start Date End Date Claudia Issa MD [address] [place] [id number] PCP - General Internal Medicine 12/01/14 documented as of this encounter
--- OUTSIDE RECORDS SUMMARY | 2024-07-23 15:08 | XMS_ITS | Clinical Summary ---
Author Organization [facility] Address [address] [place] [address] Phone Care Team Providers Care Perforator Typist Name Role Phone Claudia Issa MD Primary Care Provider [phone] Allergies Active Allergy Reactions Criticality Noted Date Comments Iodine 08/30/2005 Other 03/08/2016 Seasonal Allergies Medications cetirizine (ZyrTEC) 10 mg capsule Take by mouth daily. Active acetaminophen (TYLENOL) 500 mg tablet Take 1 Tablet by mouth every 6 hours as needed. 1 tablet daily Active desonide (DESOWEN) 0.05 % cream Apply sparingly to affected areas 1 - 2 times a day as needed 4 Active aspirin 81 mg EC tablet 1 CAPSULE DAILY 8 Active simvastatin (ZOCOR) 40 mg tablet TAKE 1 TABLET BY MOUTH EVERYDAY AT BEDTIME 90 tablet 3 4 Active omeprazole (PriLOSEC) [address] capsule TAKE 1 CAPSULE BY MOUTH EVERY DAY 90 capsule 1 5 Active isosorbide mononitrate (IMDUR) 30 mg 24 hr tablet TAKE 1 TABLET BY MOUTH EVERY DAY 90 tablet 5 Active atenoloL (TENORMIN) 50 mg tablet TAKE 1 TABLET BY MOUTH 1 TIME EACH DAY. 90 tablet 1 5 Active furosemide (LASIX) 80 mg tablet TAKE 1/2 TABLET BY MOUTH DAILY 45 tablet 3 5 Active albuterol HFA (PROAIR HFA ; PROVENTIL HFA ; VENTOLIN HFA) 90 mcg/actuation inhaler Inhale 2 puffs by mouth 4 (four) times a day if needed for wheezing. 6.7 g 5 Active fluticasone HFA (FLOVENT HFA) 110 mcg/actuation inhalerIndicati ons:Chronic cough Inhale 1 puff by mouth 2 (two) times a day. Rinse mouth with water after use to reduce aftertaste and incidence of candidiasis. Do not swallow. 12 g 5 5 07/22/19 26 Active albuterol HFA (PROAIR HFA ; PROVENTIL HFA ; VENTOLIN HFA) 90 mcg/actuation inhaler Inhale 2 Puffs into the lungs 4 times daily as needed for Cough, Wheezing or Shortness of Breath. 1 07/22/19 25 Discontin ued(Reord er) Active Problems Problem Noted Date Diagnosed Date Sensorineural hearing loss 06/08/2023 Overview (02/05/2024): Testing in [facility] 05/15/2023. Report scan Stage 3a chronic kidney disease 05/01/2023 Assessment & Plan (03/17/2024 12:19 PM EST): Follows with neprhology. Will avoid NSAIDs and stay well hydrated. Prediabetes 09/07/2021 Assessment & Plan (03/17/2024 12:19 PM EST): Will follow A1c. Orders: Basic metabolic panel; Future Hemoglobin A1c; Future Leg edema 03/22/2021 Prostate cancer 07/01/2013 Overview (02/05/2024): Being followed by Dr. Farrar in [place] HTN (hypertension) 11/27/2012 Assessment & Plan (03/17/2024 12:19 PM EST): HTN well controlled. Continue imdur, atenolol, lasix. Will follow lytes/renal function. Orders: Basic metabolic panel; Future Hemoglobin A1c; Future Morbid obesity 04/06/2011 Assessment & Plan (03/17/2024 12:19 PM EST): Efforts towards weight loss encouraged. 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 Overview (02/05/2024): excess in past Encounters Date Type Department Care Team Description 07/21/2024 9:07 AM EDT - 07/21/2024 11:59 PM EDT Hospital Encounter [address] [phone] Left arm pain; Neck pain on left side Discharge Disposition: Home or Self Care 07/21/2024 9:05 AM EDT - 07/21/2024 11:59 PM EDT Hospital Encounter [address] [phone] Left arm pain; Neck pain on left side Discharge Disposition: Home or Self Care 07/21/2024 8:15 AM EDT Office Visit Adult Medicine [address] [phone] Chris Gruber PA Left arm pain (Primary Dx); Neck pain on left side; Decreased hearing of left ear; Chronic cough 07/21/2024 Telephone Adult Medicine [address] [phone] Chris Gruber PA 07/15/2024 Telephone Adult Medicine [address] [phone] Claudia Issa MD orders 07/09/2024 9:30 AM EDT Office Visit Vascular Surgery - [place] [address] [place] [phone] Karmen Bronson MD Edema of both lower extremities due to peripheral venous insufficiency (Primary Dx) 06/19/2024 9:35 AM EST - 06/19/2024 11:59 PM EST Hospital Encounter [facility] Ultrasound [address] [place] [address] Edema Discharge Disposition: Home or Self Care 06/18/2024 1:15 PM EST Office Visit Nephrology [address] [phone] Amarjit Neff MD Stage 3a chronic kidney disease (CMS/HCC) (Primary Dx); Hypertension, unspecified type from Last 3 Months Immunizations Name Administration Dates Next Due COVID-19 (Pfizer/Comirnaty) 12yo and older 03/06/2023 Influenza trivalent, 0.5mL ( Fluzone High-dose) 65yo and older 01/17/2023,01/05/2022,02/01/2019,01/13,01/14/2017,01/16/2016,01/10/2015 Influenza trivalent, with pr eservative (Fluzone; Afluria) 6mo and older 02/01/2014,01/07/2013,01/18/2012,01/22,02/03/2010,01/17/2009,02/04/2008 ,02/14/2007,04/02/2006,03/06/2005 Pneumococcal conjugate 13 va lent (Prevnar 13, PCV13) 2mo and older 02/01/2019 Pneumococcal polysaccharide 23 valent (Pneumovax 23) 2yo and older 12/21/2009,02/28/2000 RSV, bivalent, protein subun it RSVpreF, 0.5mL, Preservative Free (Arexvy) 60yo and older 05/15/2023 Td Tetanus diptheria (Tdvax) 7yo and older 10/14/2008 Tdap Tetanus diptheria acell ular pertussis (Boostrix; Adacel) 7yo and older 02/27/2017 Zoster Live 07/31/2012 Surgical History Surgery Date Site/Laterality Comments OTHER SURGICAL HISTORY [id number] PROCEDURE: NUCLEAR STRESS TEST OTHER SURGICAL HISTORY PROCEDURE: DENIES PREVIOUS SURGERY COLONOSCOPY [id number] PROCEDURE: [place] COLONOSCOPY STOMA DX INCLUDING COLLJ SPEC SPX; COMMENT: June 2000, next due 07/06/10 COLONOSCOPY W/ BIOPSIES 10/14/10 [facility] PROCEDURE: [place] COLONOSCOPY STOMA W/BIOPSY SINGLE/MULTIPLE; COMMENT: adenoma and tics; repeat in three years COLONOSCOPY 01/15/14 PROCEDURE: [place] COLONOSCOPY STOMA DX INCLUDING COLLJ SPEC SPX; COMMENT: tics; repeat in 5 yrs Medical History Medical History Date Comments Obesity, unspecified DX:Obesity, unspecified Coronary atherosclerosis of [place] coronary artery DX:Coronary atherosclerosis of [place] coronary artery Pure hypercholesterolemia DX:Pur e hypercholesterolemia Nonspecific abnormal unspeci fied cardiovascular function study DX:Nonspecific abnormal unspecified cardiovascular function study Alcohol abuse, in remission DX:A lcohol abuse, in remission; COMMENT: excess in past Hyperlipidemia 02/17/2005 DX:Hyperlipidemi a History of actinic keratoses DX: History of actinic keratoses Family History Medical History Relation Name Comments Diabetes Father Heart attack Father in his 80s Other: bleeding GI ulcer Mother d around 65-70 Relation Name Status Comments Father Mother Social History Tobacco Use Types Packs/Day Years [...] AM EST Sexual Orientation Not on file Obstetrics History Last Filed Vital Signs Vital Sign Reading Time Taken Comments Blood Pressure 112/58 07/21/2024 8:26 AM EDT Pulse 56 07/21/2024 8:26 AM EDT Temperature 36.4 ??C (97.5 ??F) 07/21/2024 8:26 AM ED T Respiratory Rate 14 07/21/2024 8:26 AM EDT Oxygen Saturation 98% 07/21/2024 8:26 AM EDT Inhaled Oxygen Concentration - - Weight 121 kg (266 lb) 07/21/2024 8:26 AM EDT Height 177.8 cm (5' 10 ) 07/21/2024 8:26 AM EDT Body Mass Index 38.17 07/21/2024 8:26 AM EDT Plan of Treatment Upcoming Encounters Date Type Department Care Team (Late st Contact Info) Description 07/29/2024 1:45 PM EDT Appointment Radiology Department [address] [phone] 01/26/2025 9:00 AM EDT Office Visit Adult Medicine [facility] - [address] [place], [place] [phone] Claudia Issa MD [address], [place] 06/24/2025 1:15 PM EST Office Visit Nephrology - [address] [phone] Amarjit Neff MD [address] [place] [address] Health Maintenance Due Date Last Done Comments Colorectal Cancer Screening: Colonoscopy 04/02/2022 01/15/2014 Social Influencers of Health Screening 04/02/2022 Falls Risk Assessment 03/29/2024 03/29/2023 Depression Screening 07/15/2024 07/16/2023 Medicare Annual Wellness Visit 07/15/2024 07/16/2023 Zoster Vaccines (2 of 2) 08/11/2024 06/16/2024, 06/2012 Hypertension/CHF/CAD Annual BMP Blood Test 07/18/2025 07/18/2024, 03/17/2024, 11/09/2023, Additional history exists DTaP,Tdap,and Td Vaccines (3 - Td or Tdap) 02/27/2027 02/27/2017, 10/14/2008 Cholesterol Screening (Lipid Panel) 11/08/2028 11/09/2023, 11/09/2023 Pneumococcal Vaccine: 50+ Years Completed 02/01/2019, 12/21/2009, 02/28/2000 RSV Immunization Patients 60+ Years Old Completed 05/15/2023 Influenza Vaccine Completed 01/17/2024, , 01/05/2022, Additional history exists COVID-19 Vaccine Completed 03/12/2024, 10/2022, 03/13/2022, Additional history exists HIB Vaccines Aged Out No longer eligi ble based on patient's age to complete this topic HPV Vaccines Aged Out No longer eligi ble based on patient's age to complete this topic Hepatitis A Vaccines Aged Out No long er eligible based on patient's age to complete this topic Hepatitis B Vaccines Aged Out No long er eligible based on patient's age to complete this topic IPV Vaccines Aged Out No longer eligi ble based on patient's age to complete this topic MMR Vaccines Aged Out No longer eligi ble based on patient's age to complete this topic Meningococcal ACWY Vaccine Aged Out N o longer eligible based on patient's age to complete this topic Meningococcal B Vacine Aged Out No lo nger eligible based on patient's age to complete this topic RSV Immunization Patients Under 20 months Aged Out No longer eligible based on patient's age to complete this topic Varicella Vaccines Aged Out No longer eligible based on patient's age to complete this topic Procedures Procedure Name Priority Date/Time Associated Diagnosis Comments XR CERVICAL SPINE 4-5 VIEWS Routine 07/21/2024 9:19 AM EDT Left arm pain Neck pain on left side XR SHOULDER 2+ VIEWS LEFT Routine 07/21/2024 9:19 AM EDT Left arm pain Neck pain on left side HEMOGLOBIN A1C Routine 07/18/2024 1:38 PM EDT Hypertension, unspecified type Prediabetes BASIC METABOLIC PANEL Routine 07/18/2024 1:38 PM EDT Hypertension, unspecified type Prediabetes VAS US DUPLEX LOWER EXT VENOUS INSUFFICIENCY BILATERAL Routine 06/19/2024 10:28 AM EST Edema LIPID PANEL Routine 11/09/2023 HM DEPRESSION SCREENING Routine 07/16/2023 FALLS RISK ASSESSMENT Routine 03/29/2023 HM COLONOSCOPY Routine 01/15/2014 from Last 3 Months or Most Recently Relevant to Health Maintenance Results * XR Cervical Spine 4-5 Views [...] Signed Date: 07/21/2024 09:47 ET Workstation ID: [id number] Transcribed By: Self Edit Transcribed Date: 07/21/2024 [...] Signed Date: 07/21/2024 09:47 ET Workstation ID: [id number] Transcribed By: Self Edit Transcribed Date: 07/21/2024 09:46 ET us Chris COSME IMG XR PROCEDURES Final Result * XR Shoulder 2+ Views Left (07/21/2024 9:19 AM EDT) Anatomical Region Laterality Modality Upper Extremities, Shoulder Left Radi ographic Imaging 07/21/2024 9:40 AM EDT Narrative 07/21/2024 9:42 AM EDT Left shoulder, 4 views. HISTORY: Left shoulder pain. There are severe degenerative changes in the glenohumeral joint. There is rounded calcification in the axillary region. There are mild degenerative changes in the AC joint. There is no fractures or dislocations. CONCLUSIONS: Degenerative changes more prominent in the glenohumeral joint. No evidence of fractures or dislocations. Rounded calcification in the axilla. -------- FINAL REPORT -------- Dictated By: Maria A Becerril Dictated Date: 07/21/2024 09:40 ET Assigned Physician: Maria A Becerril Reviewed and Electronically Signed By: Maria A Becerril Signed Date: 07/21/2024 09:42 ET Workstation ID: [id number] Transcribed By: Self Edit Transcribed Date: 07/21/2024 09:40 ET Procedure Note Maria A Becerril MD - 07/21/2024 Left shoulder, 4 views. HISTORY: Left shoulder pain. There are severe degenerative changes in the glenohumeral joint. There isrounded calcification in the axillary region. There are mild degenerativechanges in the AC joint. There is no fractures or dislocations. CONCLUSIONS: Degenerative changes more prominent in the glenohumeraljoint. No evidence of fractures or dislocations. Rounded calcification inthe axilla. -------- FINAL REPORT -------- Dictated By: Maria A Becerril Dictated Date: 07/21/2024 09:40 ET Assigned Physician: Maria A Becerril Reviewed and Electronically Signed By: Maria A Becerril Signed Date: 07/21/2024 09:42 ET Workstation ID: [id number] Transcribed By: Self Edit Transcribed Date: 07/21/2024 09:40 ET us Chris COSME IMG XR PROCEDURES Final Result * Hemoglobin A1c (07/18/2024 1:38 PM EDT) [facility] Hemoglobin A1C 5.8 <6.5 % LAB CHEMISTRY METHOD 07/18/2024 10:08 PM EDT [facility] Mean Bld Glu Estim. 120 mg/dL LAB CHEMISTRY METHOD 07/18/2024 10:08 PM EDT [facility] Blood Venous blood specimen / Unknown Venipuncture / Unknown 07/18/2024 1:38 PM EDT 07/18/2024 1:38 PM EDT us Jonas Murcia MICA SPREADER LAB BLOOD ORDERABLES Final R esult [facility] [address] [place] [address], * (ABNORMAL) Basic metabolic panel (07/18/2024 1:38 PM EDT) Pathologist [facility] Sodium 138 133 - 145 mmol/L LAB CHEMISTRY METHOD 07/18/2024 6:01 PM EDT [facility] Potassium 4.0 3.5 - 5.5 mmol/L LAB CHEMISTRY METHOD 07/18/2024 6:01 PM EDT [facility] Chloride 100 96 - 110 mmol/L LAB CHEMISTRY METHOD 07/18/2024 6:01 PM EDT [facility] CO2 32 21 - 32 mmol/L LAB CHEMISTRY METHOD 07/18/2024 6:01 PM EDT [facility] Anion Gap 6 3 - 11 LAB CHEMISTRY METHOD 07/18/2024 6:01 PM EDT [facility] Glucose 143(H) 70 - 100 mg/dL LAB CHEMISTRY METHOD 07/18/2024 6:01 PM EDT [facility] BUN 19 5 - 25 mg/dL LAB CHEMISTRY METHOD 07/18/2024 6:01 PM EDT [facility] Creatinine 1.28 0.70 - 1.30 mg/dL LAB CHEMISTRY METHOD 07/18/2024 6:01 PM EDT [facility] eGFR 56(L) >=60 mL/min/1. 73m2 LAB CHEMISTRY METHOD 07/18/2024 6:01 PM EDT [facility] Comment:Calculation based on the??Chronic Kidney Disease Epidemiology Collaboration (CKD-EPI) equation refit??without adjustment for race. BUN/Creatinine Ratio 14.8 LAB CHEMISTRY METHOD 07/18/2024 6:01 PM EDT [facility] Calcium 9.3 8.5 - 10.5 mg/dL LAB CHEMISTRY METHOD 07/18/2024 6:01 PM EDT [facility] Blood Venous blood specimen / Unknown Venipuncture / Unknown 07/18/2024 1:38 PM EDT 07/18/2024 1:38 PM EDT us Jonas Murcia NP LAB BLOOD ORDERABLES Final R esult [facility] [address] [place] [address], * Vascular US duplex lower extremity venous insufficiency bilateral (06/19/2024 10:28 AM EST) Anatomical Region Laterality Modality Vascular, Abdomen Ultrasound 06/23/2024 11:2 2 AM EST Impressions 06/23/2024 11:27 AM EST 1. There is no evidence of thrombus in the venous systems of the lower extremities bilaterally. 2. In the right lower extremity, there is significant reflux only at the saphenous-popliteal junction. 3. In the left lower extremity, there is significant reflux at the saphenous-popliteal junction, and in varicose veins in the upper, mid, and lower calf. Code 40842 -------- FINAL REPORT -------- Dictated By: Karan Fernandez Dictated Date: 06/23/2024 11:22 ET Assigned Physician: Karan Fernandez Reviewed and Electronically Signed By: Karan Fernandez Signed Date: 06/23/2024 11:27 ET Workstation ID: [id number] Transcribed By: Self Edit Transcribed Date: 06/23/2024 11:22 ET Narrative 06/23/2024 11:27 AM EST HISTORY: The patient is an 79-year-old male with bilateral lower extremity edema. FINDINGS: Real-time ultrasonography of the venous systems of the lower extremities bilaterally is performed. In the right lower extremity, the common femoral, femoral, and popliteal veins are widely patent, without evidence of thrombus. There is normal compressibility and augmentation. The visualized calf veins, as well as the greater saphenous vein, are patent. The diameter of the greater saphenous vein in the upper thigh is 6.5 mm; in the mid thigh, 5.3 mm; and in the lower thigh, 5.3 mm. Significant reflux is only seen only at the saphenous-popliteal junction, with duration of 2.04 seconds. In the left lower extremity, the common femoral, femoral, and popliteal veins are widely patent, without evidence of thrombus. There is normal compressibility and augmentation. The visualized calf veins, as well as the greater saphenous vein, are patent. The diameter of the greater saphenous vein in the upper thigh is 4.2 mm; in the mid thigh, 5.3 mm; and in the lower thigh, 3.1 mm. There is significant reflux at the saphenous-popliteal junction with duration of 1.33 seconds; in an upper calf varicose vein with duration of 1.12 seconds; in a mid calf varicose vein with duration of 1.81 seconds; and in a lower calf varicose vein with duration of 1.5 seconds. Procedure Note Karan Fernandez MD - 06/23/2024 HISTORY: The patient is an 79-year-old male with bilateral lower extremityedema. FINDINGS: Real-time ultrasonography of the venous systems of the lowerextremities bilaterally is performed. In the right lower extremity, thecommon femoral, femoral, and popliteal veins are widely patent, withoutevidence of thrombus. There is normal compressibility and augmentation.The visualized calf veins, as well as the greater saphenous vein, arepatent. The diameter of the greater saphenous vein in the upper thigh is6.5 mm; in the mid thigh, 5.3 mm; and in the lower thigh, 5.3 mm.Significant reflux is only seen only at the saphenous-popliteal junction,with duration of 2.04 seconds. In the left lower extremity, the common femoral, femoral, and poplitealveins are widely patent, without evidence of thrombus. There is normalcompressibility and augmentation. The visualized calf veins, as well asthe greater saphenous vein, are patent. The diameter of the greatersaphenous vein in the upper thigh is 4.2 mm; in the mid thigh, 5.3 mm; andin the lower thigh, 3.1 mm. There is significant reflux at thesaphenous-popliteal junction with duration of 1.33 seconds; in an uppercalf varicose vein with duration of 1.12 seconds; in a mid calf varicosevein with duration of 1.81 seconds; and in a lower calf varicose vein withduration of 1.5 seconds. IMPRESSION: 1. There is no evidence of thrombus in the venous systems of the lowerextremities bilaterally. 2. In the right lower extremity, there is significant reflux only at thesaphenous-popliteal junction. 3. In the left lower extremity, there is significant reflux at thesaphenous- popliteal junction, and in varicose veins in the upper, mid, andlower calf. Code 68409 -------- FINAL REPORT -------- Dictated By: Karan Fernandez Dictated Date: 06/23/2024 11:22 ET Assigned Physician: Karan Fernandez Reviewed and Electronically Signed By: Karan Fernandez Signed Date: 06/23/2024 11:27 ET Workstation ID: [id number] Transcribed By: Self Edit Transcribed Date: 06/23/2024 11:22 ET Karmen Bronson MD CV VASCULAR PROCEDURES Fi nal Result * Lipid panel (11/09/2023) Pathologist [facility] LDL/HDL Ratio 2 0 - 4 Triglycerides 136 0 - 150 mg/dL Cholesterol 140 0 - 200 mg/dL HDL 68 >=40 mg/dL LDL Cholesterol 45 0 - 100 mg/dL Blood Venous blood specimen / Unknown Historical Provider LAB BLOOD ORDERABLES Mesha l Result * Depression Screening (07/16/2023) Pathologist [facility] Depression Screening abstracted [facility] Provider HEALTH MAINTENANCE Final Result * Falls Risk Assessment (03/29/2023) Pathologist [facility] Falls Risk Assessment abstracted [facility] Provider HEALTH MAINTENANCE Final Result * Colonoscopy (01/15/2014) Pathologist [facility] Colonoscopy no interpretation , abstracted Anatomical Region Laterality Modality Other Historical Provider HEALTH MAINTENANCE Final Result from Last 3 Months or Most Recently Relevant to Health Maintenance Insurance MEDICARE [facility] MEDICARE [facility] Care Teams Perforator Typist Relationship Specialty Start Date End Date Claudia Issa MD [address] [place] [address] PCP - General Internal Medicine 12/01/14
--- OUTSIDE RECORDS SUMMARY | 2024-07-23 15:08 | XMS_ITS | Encounter Summary ---
Author Organization [facility] Address [address] [place] [address] Care Team Providers Care Hot Tar Roofer Helper Name Role Phone Claudia Issa MD Primary Care Provider [phone] Encounter Details Date Type Department Care Team (Latest Contact Info) Description 07/21/2024 9:05 AM EDT - 07/21/2024 11:59 PM EDT Hospital Encounter [facility] [address] [place] [phone] Left arm pain; Neck pain on left [...] 1:45 PM EDT Appointment Radiology Department - [address] [phone] 01/26/2025 9:00 AM EDT Office Visit Adult Medicine West - [address] [phone] Claudia Issa MD [address] [place] [address] 06/24/2025 1:15 PM EST Office Visit Nephrology - [address] [phone] Amarjit Neff MD [address] [address] documented as of this encounter Procedures Procedure Name Priority Date/Time Associated Diagnosis Comments XR SHOULDER 2+ VIEWS LEFT Routine 07/21/2024 9:19 AM EDT Left arm pain Neck pain on left side documented in this encounter Results * XR Shoulder 2+ Views Left (07/21/2024 [...] Signed Date: 07/21/2024 09:42 ET Workstation ID: [id number] Transcribed By: Self Edit Transcribed Date: 07/21/2024 [...] Signed Date: 07/21/2024 09:42 ET Workstation ID: [id number] Transcribed By: Self Edit Transcribed Date: 07/21/2024 09:40 ET Chris COSME IMG XR PROCEDURES Final Result documented in this encounter Visit Diagnoses Diagnosis Left arm pain Pain in soft tissues of limb Neck pain on left side documented in this encounter Care Teams Hot Tar Roofer Helper Relationship Specialty Start Date End Date Claudia Issa MD [address] [place] [id number] PCP - General Internal Medicine 12/01/14 documented as of this encounter
--- OUTSIDE RECORDS SUMMARY | 2024-07-23 15:08 | XMS_ITS ---
Author Organization [facility] Address [address] [place] [phone] Care Team Providers Care Channel Director Name Role Phone Maegan DUNHAM, Claudia Jha Primary Care Provider Unav ailDiana Betancourt Unavailable [phone] Mcknight Encounters Encounter Location Date Provider Diagnosis [address] [phone] 06/11/2024 Diana Kat Plan Of Treatment Next Appt Details Provider Name:Diana ibrahim, 09/29/2024 03:15:00 PM, [address] [place] [address], [phone], Progress Notes * Josiah CALLAHAN JrDOB:1945 (79 yo M)Acc No.[id number]:06/11/2024 Progress Note Patient:?Josiah CALLAHAN Jr Provider:?Diana Kat DPM :1945???Age:79 Y???Sex:Male Conor e:06/11/2024 Address[address] [place], [place] [id number] Pcp:Claudia Issa MD Subjective: * Chief Complaints: * ???1. Dr Mcknight. * Medical History:? Objective: * Vitals:? Assessment: Plan: * Treatment: * Images: * The named appointment provid er may or may not be the originator of this progress note, and it is not deemed complete until electronically signed by the appointment provider. Sign off status: Pending * Provider:?Diana Kat DPM Date:?0 06/11/2024 Generated for Latrice smith/Mera/Princess on:?07/23/2024 03:08 PM EDT
--- OUTSIDE RECORDS SUMMARY | 2024-07-23 15:08 | XMS_ITS | Patient Health Record ---
Author Organization [facility] [place] Address [address] [facility] [place] [address] Care Team Providers Care Plasterer Maintenance Name Role Phone Maegan DUNHAM, Claudia Jha Primary Care Provider Unayu KayeDiana araya Unavailable [phone] Hugo Yang Unavailable [phone] NilsLucy frausto Unavailable [phone] Allergies Allergen (clinical drug ingredient) Drug/Non Drug Allergy documented on EMR Reaction Allergy Type Onset Date Status Iodine nausea and vomiting Drug Allergy Active Adhesive rash Allergy Active Reason For Referral No Information Medications Medication SIG (Take, Route, Frequency, Duration) Notes Start Date End Date Status Isosorbide Mononitrate Active Furosemide 80 MG as directed A ctive Desonide 0.05 % as directed Ac tive Atenolol 25 MG as directed Act ana Aspirin 81 81 MG 1 tablet Act ana Albuterol Sulfate 108 (90 Base) MCG/ACT 1 puff as needed Active Omeprazole 20 MG as directed A ctive Flonase Not-Taking Famotidine 20 MG as directed A ctive Simvastatin 40 MG as directed Active Nitroglycerin Active Ketoconazole 2 % as directed A ctive Social History Tobacco [...] Problem Status W/U Status Risk Notes Problem Bilateral atherosclerosis of arteries of lower limbs (disorder) ([id number] ) Unspecified atherosclerosis of cheesh-na arteries of extremities, bilateral legs (I70.203) Active confirmed Problem 540112929 Lymphedema (I89.0) Active confirmed Problem Atherosclerosis of cheesh-na artery of both lower extremities, with unspecified presence of clinical manifestation (I70.203) Active confirmed Q7(A), Q8(2B), Q9(1B,2 C) Vital Signs Blood pressure diastolic 50 mm Hg 06/12/2024 Height 5 ft 10 in in 06/12/2024 Blood pressure systolic 135 mm Hg 06/12/2024 Weight 265 lbs 06/12/2024 BMI 38.02 kg/m2 06/12/2024 Procedures Procedure Date Ordered Date Performed Result Body Sit e 54801-ZLTO SKIN LESIONS, 2 TO 4 09/20/2023 N/A 79115-UOUDUPF NAIL, 6 OR MORE 03/13/2024 N/A 74834-PHNT SKIN LESIONS, 2 TO 4 03/13/2024 N/A Encounters Encounter Location Date Provider Diagnosis [address] [address] 09/20/2023 Uhgo Yang Pain in right toe(s) M79.674 ; Tinea unguium B35.1 ; Pain in left toe(s) M79.675 ; Unspecified atherosclerosis of cheesh-na arteries of extremities, bilateral legs I70.203 ; Lymphedema I89.0 and Xerosis cutis L85.[address] [address] 12/13/2023 Hugo Yang Pain in right toe(s) M79.674 ; Tinea unguium B35.1 ; Pain in left toe(s) M79.675 ; Unspecified atherosclerosis of cheesh-na arteries of extremities, bilateral legs I70.203 ; Lymphedema I89.0 and Xerosis cutis L85.[address] [place] [address] 03/13/2024 Diana Kat Ingrown nail L60.0 ; Pain in right toe(s) M79.674 ; Tinea unguium B35.1 ; Pain in left toe(s) M79.675 and Unspecified atherosclerosis of cheesh-na arteries of extremities, bilateral legs I70.203 [facility] [address] [address] 06/12/2024 Lucy Nilsjett Atherosclerosis of cheesh-na artery of both lower extremities, with unspecified presence of clinical manifestation I70.203 ; Tinea unguium B35.1 ; Pain in right toe(s) M79.674 and Pain in left toe(s) M79.675 Assessments Encounter Date Diagnosis (ICD Code) Assessment Notes Treatment Notes Treatment Clinical Notes Section Notes 09/20/2023 Tinea unguium (ICD-10 - B35.1) 09/20/2023 Pain in right toe(s) (ICD-10 - M79.674) 12/13/2023 Pain in right toe(s) (ICD-10 - M79.674) 03/13/2024 Ingrown nail (ICD-10 - L60.0) 06/12/2024 Atherosclerosis of cheesh-na artery of both lower extremities, with unspecified presence of clinical manifestation (ICD-10 - I70.203) Q7(A), Q8(2B), Q9(1B,2C) 06/12/2024 Tinea unguium (ICD-10 - B35.1) 12/13/2023 Tinea unguium (ICD-10 - B35.1) 03/13/2024 Pain in right toe(s) (ICD-10 - M79.674) 09/20/2023 Pain in left toe(s) (ICD-10 - M79.675) 09/20/2023 Unspecified atherosclerosis of cheesh-na arteries of extremities, bilateral legs (ICD-10 - I70.203) 12/13/2023 Pain in left toe(s) (ICD-10 - M79.675) 03/13/2024 Pain in left toe(s) (ICD-10 - M79.675) 03/13/2024 Tinea unguium (ICD-10 - B35.1) 06/12/2024 Pain in right toe(s) (ICD-10 - M79.674) 06/12/2024 Pain in left toe(s) (ICD-10 - M79.675) 03/13/2024 Unspecified atherosclerosis of cheesh-na arteries of extremities, bilateral legs (ICD-10 - I70.203) 12/13/2023 Unspecified atherosclerosis of cheesh-na arteries of extremities, bilateral legs (ICD-10 - I70.203) 09/20/2023 Lymphedema (ICD-10 - I89.0) 09/20/2023 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) 12/13/2023 Lymphedema (ICD-10 - I89.0) 12/13/2023 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) Plan Of Treatment Pending Test Test Name Order Date 11484-PEWCDAF NAIL, 6 OR MORE 03/13/2024 18978-CLMX SKIN LESIONS, 2 TO 4 06/27/19 75065-UERP SKIN LESIONS, 2 TO 4 09/20/19 26246-ZOSJ SKIN LESIONS, 2 TO 4 03/13/20 Next Appt Details Provider Name:Diana Valdes [place], 09/29/2024 03:15:00 PM, [address] [facility], [place], [address], Insurance Providers Payer Name Payer Address Payer Phone Subscriber Number Group Number Insured Name Patient Relationship to Insured Coverage Start Date Coverage End Date Medicare National [employer] [address] [place] [address] [id number] Josiah Torres Self - patient is the insured [employer] ([facility]) [address] [place] [address] [id number] Josiah Torres Self - patient is the insured Medical (General) History Medical History History ICD Code Arthritis asthma Broken bones Cancer Cataracts covid-19 Heart disease High blood pressure Warts Measles Mumps Chicken pox Surgical History Surgery Date(Month/Year) Hospitalization History Reason Date(Month/Year) [facility], ER, broken arm 08/16/23
--- OUTSIDE RECORDS SUMMARY | 2024-07-23 15:08 | XMS_ITS | Encounter Summary ---
Author Organization [facility] [place] [address] Care Team Providers Care Shipping Weigher Name Role Phone Claudia Issa MD Primary Care Provider [phone] Reason for Visit * Reason Comments Follow-up Encounter Details Date Type Department Care Team ([facility] st Contact Info) Description 07/09/2024 9:30 AM EDT Office Visit Vascular Surgery - [place] [address] [place] [address] Karmen Bronson MD [address] [place] [address] Edema of both lower extremities due to peripheral venous insufficiency (Primary Dx) Social History Tobacco Use Types Packs/Day Years [...] on file documented as of this encounter Last Filed Vital Signs Vital Sign Reading Time Taken Comments Blood Pressure 104/57 07/09/2024 9:12 AM EDT Pulse 56 07/09/2024 9:12 AM EDT Temperature - - Respiratory Rate - - Oxygen Saturation - - Inhaled Oxygen Concentration - - Weight 118 kg (261 lb) 07/09/2024 9:12 AM EDT Height 177.8 cm (5' 10 ) 07/09/2024 9:12 AM EDT Body Mass Index 37.45 07/09/2024 9:12 AM EDT documented in this encounter Progress Notes * Karmen Bronson MD - 07/09/2024 9:30 AM EDT WEAR YOUR COMPRESSION STOCKING DAILY, WASH LEGS DAILY, MOISTURIZE LEGS DAILY, RECHECK PRN . CONTINUE CURRENT MEDICATIONS, CONTINUE FOLLOWUP WITH YOUR pcp. * Jarad Solis MA - 07/09/2024 9:30 AM EDT Vascular US duplex lower extremity venous insufficiency bilateral-06/19/24 HISTORY: The patient is an 79-year-old male [...] varicose vein with duration of 1.5 seconds. IMPRESSION: 1. There is no evidence of thrombus in the venous systems of the lower extremities bilaterally. 2. In the right lower extremity, there is significant reflux only at the saphenous-popliteal junction. 3. In the left lower extremity, there is significant reflux at the saphenous- popliteal junction, and in varicose veins in the upper, mid, and lower calf. * Karmen Bronson MD - 07/09/2024 9:30 AM EDT * Karmen Bronson MD - 07/09/2024 9:30 AM EDT PATIENT: Josiah Torres ENCOUNTER: 07/09/2024 EMRN: [id number] : 1945 PCP: Claudia Issa MD CHIEF COMPLAINT: Follow-up HPI: This 79 y.o. male presents for follow-up of bilateral lower extremity edema, and discussed results of duplex at [facility] on 06/24/2024. He is wearing his compression stockings, leg swelling has improved. He is also on furosemide 40 mg daily and is compliant in taking his medication. He denies any chest pain or shortness of breath. Patient has coronary artery disease has stenting done many years ago. He has no leg ulcers. He has a history of obesity, hypertension hyperlipidemia. There is noprior history of leg ulcers. He has hyperpigmented lower leg skin. PAST MEDICAL HISTORY: (reviewed and unchanged) Patient Active Problem List Diagnosis CAD (coronary artery disease) HTN (hypertension) Morbid obesity (CMS/HCC) Hyperlipidemia Prediabetes Prostate cancer ([facility]) Stage 3a chronic kidney disease ([facility]) Alcohol abuse, in remission Sensorineural hearing loss Macular degeneration (senile) of retina Leg edema Edema PAST SURGICAL HISTORY: (reviewed and unchanged) Past Surgical History: Procedure Laterality Date COLONOSCOPY PROCEDURE: MT COLONOSCOPY STOMA DX INCLUDING COLLJ SPEC SPX; COMMENT: June 2000, next due 07/06/10 COLONOSCOPY 01/15/14 PROCEDURE: MT COLONOSCOPY STOMA DX INCLUDING COLLJ SPEC SPX; COMMENT: tics; repeat in 5 yrs COLONOSCOPY W/ BIOPSIES 10/14/10 [facility] PROCEDURE: MT COLONOSCOPY STOMA W/BIOPSY SINGLE/MULTIPLE; COMMENT: adenoma and tics; repeat in three years OTHER SURGICAL HISTORY 710192 PROCEDURE: NUCLEAR STRESS TEST OTHER SURGICAL HISTORY PROCEDURE: DENIES PREVIOUS SURGERY MEDICATIONS: (reviewed, flow sheet updated) Outpatient Medications Marked as Taking for the 07/09/24 encounter (Office Visit) with Karmen Bronson MD Medication Sig Dispense Refill acetaminophen (TYLENOL) 500 mg tablet Take 1 Tablet by mouth every 6 hours as needed. 1 tablet daily albuterol HFA (PROAIR HFA ; PROVENTIL HFA ; VENTOLIN HFA) 90 mcg/actuation inhaler Inhale 2 Puffs into the lungs 4 times daily as needed for Cough, Wheezing or Shortness of Breath. aspirin 81 mg EC tablet 1 CAPSULE DAILY atenoloL (TENORMIN) 50 mg tablet TAKE 1 TABLET BY MOUTH 1 TIME EACH DAY. 90 tablet 1 cetirizine (ZyrTEC) 10 mg capsule Take by mouth daily. desonide (DESOWEN) 0.05 % cream Apply sparingly to affected areas 1 - 2 times a day as needed furosemide (LASIX) 80 mg tablet TAKE 1/2 TABLET BY MOUTH DAILY 45 tablet 3 isosorbide mononitrate (IMDUR) 30 mg 24 hr tablet TAKE 1 TABLET BY MOUTH EVERY DAY 90 tablet 0 omeprazole (PriLOSEC) [address] capsule TAKE 1 CAPSULE BY MOUTH EVERY DAY 90 capsule 1 simvastatin (ZOCOR) 40 mg tablet TAKE 1 TABLET BY MOUTH EVERYDAY AT BEDTIME 90 tablet 3 ALLERGIES: (reviewed, flow sheet updated) Allergies Allergen Reactions Iodine Other Seasonal Allergies ROS: GENERAL: No malaise, significant weight loss or fever HEENT: No changes in hearing or vision, nose bleeds or other nasal problems NECK: No lumps, goiter, pain or significant neck swelling RESPIRATORY: No cough, wheezing or shortness of breath CARDIAC: No chest pain or palpitations GI: No abdominal discomfort, blood in stools or black stools : No dysuria, frequency or incontinence MUSCULOSKELETAL: SEE HPI SKIN: No lesions, rash or itching ENDOCRINE: No cold or heat intolerance, polyuria, polydipsia or goiter. NEURO: No persistent headache, syncope, seizures, weakness or numbness VASCULAR: SEE HPI PHYSICAL EXAM: Vitals: 07/09/24 0912 BP: 104/57 BP Location: Right arm Patient Position: Sitting Pulse: 56 Weight: 118 kg (261 lb) Height: 1.778 m (70 ) APPEARANCE: Alert and in no acute distress EYES: Pupils, conjunctiva and sclera normal.. NECK: Neck supple, no adenopathy HEART: RRR with no murmurs appreciated LUNG: clear to auscultation GI: soft and non-tender LYMPH NODES: grossly normal MUSCULOSKELETAL: Spine ROM normal. Muscular strength intact. SKIN: is grossly normal NEURO: Awake, alert and oriented x 3 PSYCHIATRIC: Mood and affect are normal VASCULAR: Carotid pulses palpable bilaterally no bruit no JVD. Brachial radial pulses palpable bilaterally. Femoral pulses palpable bilaterally. Popliteal pulse not palpable. Dorsalis pedis and posterior tibial pulses palpable. He has hyperpigmented lower leg skin bilaterally and gaiter distribution. Varicose veins posterior calf not tender. There is no calf tenderness, no ulcer. Toes are warm well-perfused. DIAGNOSTIC TESTING: Duplex venous study shows no DVT bilateral lower extremity. In the right lower leg there is reflux at the saphenofemoral popliteal junction duration of 2.04 seconds. Left leg significant reflux off no popliteal junction duration of 1.33 seconds in upper varicose veins and 1.12-second in the mid calf varicose veins and 1.81 seconds in the lower calf varicosities I independently reviewed the study reports. Images were available for review. ASSESSMENT: 1. Edema of both lower extremities due to peripheral venous insufficiency PLAN: 79 y.o. male with history of obesity, hypertension hyperlipidemia, has chronic venous insufficiency, he is to continue wearing his compression stockings daily take it off before going to bed. Elevatelegs when swollen. Wash legs daily moisturize legs with skin lotion daily. He is to continue follow-up with his PCP, recheck as needed. Continue all current medications including his diuretics, furosemide 40 mg daily. Patient was educated on the disease process. We also discussed microphlebectomy for the varicose veins with reflux. He opted to continue wearing his compression stockings. Patient was counseled on risk factor modification. CC: Rocio Issa MD documented in this encounter Plan of Treatment Upcoming Encounters Date Type Department Care Team (Late st Contact Info) Description 07/29/2024 1:45 PM EDT Appointment Radiology Department - [address] [phone] 01/26/2025 9:00 AM EDT Office Visit [facility] - [address] [phone] Claudia Issa MD [address] [place] [address] 06/24/2025 1:15 PM EST Office Visit Nephrology - [address] [phone] Amarjit Neff MD [address] [facility] [address] [place] [address] documented as of this encounter Visit Diagnoses Diagnosis Edema of both lower extremities due to peripheral venous insufficiency- Primary documented in this encounter Care Teams Shipping Weigher Relationship Specialty Start Date End Date Claudia Issa MD [address] [place] [address] PCP - General Internal Medicine 12/01/14 documented as of this encounter
--- OUTSIDE RECORDS SUMMARY | 2024-07-23 15:08 | XMS_ITS | Encounter Summary ---
[facility] Address [address] [place] [address] Care Team Providers Care Behavioral Health Care Manager Name Role Phone Claudia Issa MD Primary Care Provider [phone] Reason for Referral * Consultation (Routine) - Authorized Specialty Diagnoses / Procedures Referred By Yola cruz Referred To Contact Audiology Diagnoses Decreased hearing of left ear Chris Gruber PA [address] [place] [address] Phone: tel: fax: Referral ID Status Reason Start Date Expiration Date Visits Requested Visits Authorized [id number] Authorized Specialty Services Required 07/21/2024 07/21/2025 1 1 Reason for Visit * Reason Comments Hypertension 4 month follow up Arm Pain C/o ongoing muscle p ain of Left upper arm radiates from neck. Pt states that he had complete hearing loss in left ear last night while showering lasted through the night a little better this Am. Need referral for hearing exam, states that he is due. Encounter Details Date Type Department Care Team (Late st Contact Info) Description 07/21/2024 8:15 AM EDT Office Visit Adult Medicine [address] [address] Chris Gruber PA [address] [place] [address] Left arm pain (Primary Dx); Neck pain on left side; Decreased hearing of left ear; Chronic cough Social History Tobacco Use Types Packs/Day Years [...] Mass Index 38.17 07/21/2024 8:26 AM EDT documented in this encounter Patient Instructions * Attachments The following attachments cannot be sent through Care Everywhere. * Cervical Radiculopathy (Syrian) * Cervical: Exercises (Syrian) * Rotator Cuff: Exercises (Syrian) documented in this encounter Ordered Prescriptions Prescription Sig Dispense Quantity Refills Last Filled Start Date End Date fluticasone HFA (FLOVENT HFA) 110 mcg/actuation inhalerIndications :Chronic cough Inhale 1 puff by mouth 2 (two) times a day. Rinse mouth with water after use to reduce aftertaste and incidence of candidiasis. Do not swallow. 12 g 5 07/21/2024 albuterol HFA (PROAIR HFA ; PROVENTIL HFA ; VENTOLIN HFA) 90 mcg/actuation inhaler Inhale 2 puffs by mouth 4 (four) times a day if needed for wheezing. 6.7 g 07/21/2024 documented in this encounter Progress Notes * CARMELINA Low - 07/21/2024 8:15 AM EDT PATIENT'S PCP: Claudia Issa MD LAST VISIT IN THIS DEPARTMENT: 07/15/2024 LAST VISIT WITH THIS PROVIDER: 03/17/2024 Josiah Torres is a 79 y.o. (: 1945) male who presents today for: Chief Complaint Patient presents with Hypertension 4 month follow up Arm Pain C/o ongoing muscle pain of Left upper arm radiates from neck. Pt states that he had complete hearing loss in left ear last night while showering lasted through the night a little better this Am. Needreferral for hearing exam, states that he is due. Assessment/Plan Assessment & Plan Left arm pain Orders: XR Cervical Spine 4-5 Views; Future XR Shoulder 2+ Views Left; Future Neck pain on left side Orders: XR Cervical Spine 4-5 Views; Future XR Shoulder 2+ Views Left; Future Decreased hearing of left ear Orders: Ambulatory referral to Audiology; Future Chronic cough Orders: fluticasone HFA (FLOVENT HFA) 110 mcg/actuation inhaler; Inhale 1 puff by mouth 2 (two) times a day. Rinse mouth with water after use to reduce aftertaste and incidence of candidiasis. Do not swallow. Assessment & Plan 1. Left arm pain. The etiology of the pain could be attributed to thoracic outlet syndrome or cervical radiculopathy,with the latter being more probable. An x-ray of the neck and shoulder will be ordered to further investigate the cause of the pain. He has been provided with a set of stretches for both the neck andshoulder, which should help alleviate the discomfort. He is advised to provide an update on his condition via [employer] message in approximately 6 weeks. 2. Hearing loss. The ear examination did not reveal any abnormalities such as swimmer's ear, wax buildup, or eardruminfection. A referral to an day light relief operator will be made for further evaluation of the sudden change inhearing. There is no persistent complete hearing loss. 3. Cough. A prescription for Flovent inhaler will be provided, to be used twice daily, once in the morning and once at night. He is advised to rinse his mouth with water after each use to prevent potential yeast infections in the mouth. He may continue to use albuterol as needed, but the preference is for him to use Flovent instead of albuterol. Follow-up The patient will follow up in 6 months. No follow-ups on file. Subjective HPI History of Present Illness The patient is an 79-year-old male who presents for evaluation of left arm pain, hearing loss, and cough. He reports experiencing intermittent muscular discomfort in his left arm, which he describes as grisel to a toothache. This discomfort is particularly noticeable when he is seated with his arm in a specific position, such as during crossword or jigsaw puzzles. Despite the pain, he retains full mobility in his arm and can perform tasks such as squeezing without difficulty. He also mentions a sharp, c licking sensation in the back of his neck, which he first noticed over a month ago while sitting inthe same position. The pain does not radiate into his fingers. He also experiences this discomfort during sleep, particularly when lying on his left side. He notes that the pain is not present in hisright arm, which he fractured last year. He has been managing the pain with stretching exercises, which he finds beneficial. He experienced a sudden loss of hearing in one ear after showering and reinserting his hearing aids. He is uncertain if this incident is related to his neck and arm symptoms. His hearing has since improved, although he remains dissatisfied with the performance of his hearing aids. He plans to consult an day light relief operator regarding this issue. He had been using albuterol four times daily to manage a cold but has since reduced the frequency to twice daily as his condition improved. He has not required the use of albuterol recently. He noticed his chronic cough was better on the albuterol. Supplemental Information He saw the vascular doctor recently who told him to follow up with his PCP and did not think he needed to see him anymore. MEDICATIONS Current: albuterol Review of Systems Constitutional: Negative for chills, diaphoresis and fever. HENT: Negative for ear pain and sore throat. Eyes: Negative for discharge. Respiratory: Negative for cough and shortness of breath. Cardiovascular: Negative for chest pain, palpitations and leg swelling. Gastrointestinal: Negative for abdominal pain. Endocrine: Negative for polyuria. Genitourinary: Negative for difficulty urinating. Musculoskeletal: Negative for gait problem. Skin: Negative for rash. Neurological: Negative for syncope and weakness. The following portions of the patient's chart were reviewed in this encounter and updated as appropriate: Tobacco Allergies Meds Problems Med Hx Surg Hx Fam Hx Objective Visit Vitals BP 112/58 Pulse 56 Temp 36.4 ??C (97.5 ??F) (Temporal) Resp 14 Ht 1.778 m (70 ) Wt 121 kg (266 lb) SpO2 98% BMI 38.17 kg/m?? Smoking Status Former BSA 2.36 m?? SpO2: 98 % BP Readings from Last 3 Encounters: 07/21/24 112/58 07/09/24 104/57 06/18/24 116/58 Wt Readings from Last 3 Encounters: 07/21/24 121 kg (266 lb) 07/09/24 118 kg (261 lb) 06/18/24 121 kg (265 lb 12.8 oz) Physical Exam Constitutional: General: He is not in acute distress. Appearance: Normal appearance. He is not ill-appearing. Eyes: Conjunctiva/sclera: Conjunctivae normal. Pupils: Pupils are equal, round, and reactive to light. Cardiovascular: Rate and Rhythm: Normal rate and regular rhythm. Heart sounds: No murmur heard. Pulmonary: Effort: Pulmonary effort is normal. Breath sounds: Normal breath sounds. No wheezing, rhonchi or rales. Abdominal: General: Bowel sounds are normal. There is no distension. Palpations: Abdomen is soft. There is no mass. Hernia: No hernia is present. Musculoskeletal: General: No swelling, tenderness, deformity or signs of injury. Normal range of motion. Cervical back: Normal range of motion and neck supple. Right lower leg: No edema. Left lower leg: No edema. Skin: General: Skin is warm and dry. Capillary Refill: Capillary refill takes less than 2 seconds. Coloration: Skin is not jaundiced. Findings: No bruising, erythema or rash. Neurological: General: No focal deficit present. Mental Status: He is alert and oriented to person, place, and time. Mental status is at baseline. Psychiatric: Mood and Affect: Mood normal. Behavior: Behavior normal. Thought Content: Thought content normal. Judgment: Judgment normal. Physical Exam Ears appear normal. Adson's test on the musculoskeletal system was negative. Spurling negative. Allergies Allergen Reactions Iodine Other Seasonal Allergies Current Outpatient Medications Medication Instructions acetaminophen (TYLENOL) 500 mg tablet Take 1 Tablet by mouth every 6 hours as needed. 1 tablet daily albuterol HFA (PROAIR HFA ; PROVENTIL HFA ; VENTOLIN HFA) 90 mcg/actuation inhaler 2 puffs, inhalation, 4 times daily PRN aspirin 81 mg EC tablet 1 CAPSULE DAILY atenoloL (TENORMIN) 50 mg, oral, Daily cetirizine (ZyrTEC) 10 mg capsule Take by mouth daily. desonide (DESOWEN) 0.05 % cream Apply sparingly to affected areas 1 - 2 times a day as needed fluticasone HFA (FLOVENT HFA) 110 mcg/actuation inhaler 1 puff, inhalation, 2 times daily, Rinse mouth with water after use to reduce aftertaste and incidence of candidiasis. Do not swallow. furosemide (LASIX) 40 mg, oral, Daily isosorbide mononitrate (IMDUR) 30 mg, oral, Daily omeprazole (PRILOSEC) 20 mg, oral, Daily simvastatin (ZOCOR) 40 mg, oral, Nightly IMAGING/LABORATORY: None CARMELINA Low ADULT MEDICINE [address] documented in this encounter Plan of Treatment Upcoming Encounters Date Type Department Care Team (Late st Contact Info) Description 07/29/2024 1:45 PM EDT Appointment Radiology Department [address] [phone] 01/26/2025 9:00 AM EDT Office Visit Adult Medicine [address] [phone] Claudia Issa MD [address] [place] [address] 06/24/2025 1:15 PM EST Office Visit Nephrology [address] [phone] Amarjit Neff MD [address] [facility] [address] [place] [address] Scheduled Referrals Name Type Priority Associated Diagnoses Order Schedule Ambulatory referral to Audiology Outpatient Referral Routine Decreased hearing of left ear 1 Occurrences starting 07/21/2024 until 07/21/2025 documented as of this encounter Results * XR Cervical Spine [...] Signed Date: 07/21/2024 09:47 ET Workstation ID: [id number] Transcribed By: Self Edit Transcribed Date: 07/21/2024 [...] Signed Date: 07/21/2024 09:47 ET Workstation ID: [id number] Transcribed By: Self Edit Transcribed Date: 07/21/2024 [...] Signed Date: 07/21/2024 09:42 ET Workstation ID: [id number] Transcribed By: Self Edit Transcribed Date: 07/21/2024 [...] A Becerril Reviewed and Electronically Signed By: aMria A Becerril Signed Date: 07/21/2024 09:42 ET Workstation ID: [id number] Transcribed By: Self Edit Transcribed Date: 07/21/2024 09:40 ET Chris COSME IMG XR PROCEDURES Final Result documented in this encounter Visit Diagnoses Diagnosis Left arm pain- Primary Pain in soft tissues of limb Neck pain on left side Decreased hearing of left ear Chronic cough Cough Left arm pain Pain in soft tissues of limb Neck pain on left side Left arm pain Pain in soft tissues of limb Neck pain on left side documented in this encounter Discontinued Medications Medication Sig Discontinue Reason Start Date End Da te albuterol HFA (PROAIR HFA ; PROVENTIL HFA ; VENTOLIN HFA) 90 mcg/actuation inhaler Inhale 2 Puffs into the lungs 4 times daily as needed for Cough, Wheezing or Shortness of Breath. Reorder 03/21/2021 07/21/2024 documented as of this encounter Care Teams Behavioral Health Care Manager Relationship Specialty Start Date End Date Claudia Issa MD [address] [place] [address] PCP - General Internal Medicine 12/01/14 documented as of this encounter
== END 2024-07-23 12:50 | disposition home or self-care (01) ==
LOC: HO.SH 12:49
PROVIDERS: Visit Provider Internal Medicine
DX: Z01.118 Encounter for examination of ears and hearing with other abnormal findings (principal); Z46.1 Encounter for fitting and adjustment of hearing aid; H90.3 Sensorineural hearing loss, bilateral
CPT/HCPCS: 92593

== ENCOUNTER 2024-08-05 07:49 | Outpatient (REF) | payer MEDICARE, OTHER, SELFPAY ==
--- OUTSIDE RECORDS SUMMARY | 2024-08-05 07:53 | XMS_ITS | Patient Health Record ---
Author Organization [facility] [place] Address [address] [facility] [place] [address] Care Team Providers Care Seismograph Helper Name Role Phone Maegan DUNHAM, Claudia Jha Primary Care Provider Unayu KayeDiana araya Unavailable [phone] Hugo Yang Unavailable [phone] NilsLucy frausto Unavailable [phone] Allergies Allergen (clinical drug ingredient) Drug/Non Drug [...] atherosclerosis of arteries of lower limbs (disorder) (40040478300196813 ) Unspecified atherosclerosis of [place] arteries of extremities, bilateral legs (I70.203) Active confirmed Problem 366905713 Lymphedema (I89.0) Active confirmed Problem Atherosclerosis of [place] artery of both lower extremities, with unspecified presence of clinical manifestation (I70.203) Active confirmed Q7(A), Q8(2B), Q9(1B,2 C) Vital Signs Blood pressure diastolic 50 mm Hg 06/12/2024 Height 5 ft 10 in in 06/12/2024 Blood pressure systolic 135 mm Hg 06/12/2024 Weight 265 lbs 06/12/2024 BMI 38.02 kg/m2 06/12/2024 Procedures Procedure Date Ordered Date Performed Result Body Sit e 97477-UJOU SKIN LESIONS, 2 TO 4 09/20/2023 N/A 99456-RAYQXLW NAIL, 6 OR MORE 03/13/2024 N/A 28699-QDRD SKIN LESIONS, 2 TO 4 03/13/2024 N/A Encounters Encounter Location Date Provider Diagnosis [address] [address] 09/20/2023 Huog Yang Pain in right toe(s) M79.674 ; Tinea unguium B35.1 ; Pain in left toe(s) M79.675 ; Unspecified atherosclerosis of [place] arteries of extremities, bilateral legs I70.203 ; Lymphedema I89.0 and Xerosis cutis L85.[address] [address] 12/13/2023 Hugo Yang Pain in right toe(s) M79.674 ; Tinea unguium B35.1 ; Pain in left toe(s) M79.675 ; Unspecified atherosclerosis of [place] arteries of extremities, bilateral legs I70.203 ; Lymphedema I89.0 and Xerosis cutis L85.[address] [place] [address] 03/13/2024 Diana Kat Ingrown nail L60.0 ; Pain in right toe(s) M79.674 ; Tinea unguium B35.1 ; Pain in left toe(s) M79.675 and Unspecified atherosclerosis of [place] arteries of extremities, bilateral legs I70.203 [facility] [address] [address] 06/12/2024 Lucy Nilsjett Atherosclerosis of [place] artery of both lower extremities, with unspecified [...] nail (ICD-10 - L60.0) 06/12/2024 Atherosclerosis of [place] artery of both lower extremities, with unspecified presence of clinical manifestation (ICD-10 - I70.203) Q7(A), Q8(2B), Q9(1B,2C) 06/12/2024 Tinea unguium (ICD-10 - B35.1) 12/13/2023 Tinea unguium (ICD-10 - B35.1) 03/13/2024 Pain in right toe(s) (ICD-10 - M79.674) 09/20/2023 Pain in left toe(s) (ICD-10 - M79.675) 09/20/2023 Unspecified atherosclerosis of [place] arteries of extremities, bilateral legs (ICD-10 - I70.203) 12/13/2023 Pain in left toe(s) (ICD-10 - M79.675) 03/13/2024 Pain in left toe(s) (ICD-10 - M79.675) 03/13/2024 Tinea unguium (ICD-10 - B35.1) 06/12/2024 Pain in right toe(s) (ICD-10 - M79.674) 06/12/2024 Pain in left toe(s) (ICD-10 - M79.675) 03/13/2024 Unspecified atherosclerosis of [place] arteries of extremities, bilateral legs (ICD-10 - I70.203) 12/13/2023 Unspecified atherosclerosis of [place] arteries of extremities, bilateral legs (ICD-10 - I70.203) 09/20/2023 Lymphedema (ICD-10 - I89.0) 09/20/2023 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) 12/13/2023 Lymphedema (ICD-10 - I89.0) 12/13/2023 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) Plan Of Treatment Pending Test Test Name Order Date [id number] NAIL, 6 OR MORE 03/13/2024 08588-UXYA SKIN LESIONS, 2 TO 4 06/27/19 16511-PMJD SKIN LESIONS, 2 TO 4 09/20/19 50210-AFAH SKIN LESIONS, 2 TO 4 03/13/20 Next Appt Details Provider Name:Diana Valdes alexandria, 09/29/2024 03:15:00 PM, [address] [facility], [place], [address], Insurance Providers Payer Name Payer Address Payer Phone Subscriber Number Group Number Insured Name Patient Relationship to Insured Coverage Start Date Coverage End Date Medicare National [employer]t [employer] [address] [place] [address] [id number] Josiah Torres Self - patient is the insured [employer] ([facility]) [address] [place] [address] [id number] Josiah Torres Self - patient is the insured Medical (General) History Medical History History ICD Code Arthritis asthma Broken bones Cancer Cataracts covid-19 Heart disease High blood pressure Warts Measles Mumps Chicken pox Surgical History Surgery Date(Month/Year) Hospitalization History Reason Date(Month/Year) [facility], ER, broken arm 08/16/23
--- OUTSIDE RECORDS SUMMARY | 2024-08-05 07:54 | XMS_ITS ---
Author Organization [facility] [place] Address [address] [facility] [place] [address] Care Team Providers Care Vice President Biostatistics Name Role Phone Maegan DUNHAM, Claudia Jha Primary Care Provider Mayte guerrero Diana Kat Unavailable [phone] Lucy Higginbotham Unavailable [phone] Allergies Allergen (clinical drug ingredient) Drug/Non Drug [...] W/U Status Risk Notes Problem Atherosclerosis of [place] artery of both lower extremities, with unspecified presence of clinical manifestation (I70.203) Active confirmed Q7(A), Q8(2B), Q9(1B,2C) Vital Signs Height 5 ft 10 in in 06/12/2024 Weight 265 lbs 06/12/2024 BMI 38.02 kg/m2 06/12/2024 Blood pressure systolic 135 mm Hg 06/12/19 25 Blood pressure diastolic 50 mm Hg 025 Encounters Encounter Location Date Provider Diagnosis [facility] [address] 06/12/2024 Lucy Higginbotham Atherosclerosis of [place] artery of both lower extremities, with unspecified presence of clinical manifestation I70.203 ; Tinea unguium B35.1 ; Pain in right toe(s) M79.674 and Pain in left toe(s) M79.675 Assessments Encounter Date Diagnosis (ICD Code) Assessment Notes Treatment Notes Treatment Clinical Notes Section Notes 06/12/2024 Atherosclerosis of [place] artery of both lower extremities, with unspecified presence of clinical manifestation (ICD-10 - I70.203) Q7(A), Q8(2B), Q9(1B,2C) 06/12/2024 Tinea unguium (ICD-10 - B35.1) 06/12/2024 Pain in right toe(s) (ICD-10 - M79.674) 06/12/2024 Pain in left toe(s) (ICD-10 - M79.675) Plan Of Treatment Next Appt Details Follow Up: 3 Months, Reason: Provider Name:Diana ibrahim, 09/29/2024 03:15:00 PM, [address] [place], [address], Procedure Notes * Category Sub-Category Detail Notes [...] use of a nail nipper and/or dremel-type grinder watch parts, to a more viable healthy nail plate [...] to maintain effectiveness in symptomatic relief - 29807 Keratoma Treatment Parring or Cutting o f [...] instrumentation by the physician of record - 06244 Progress Notes * Josiah CALLAHAN JrDOB:1945 (79 yo M)Acc No.[id number]:06/12/2024 Progress Note Patient:?Josiah CALLAHAN Jr Provider:?Lucy Higginbotham DPM :1945???Age:79 Y???Sex:Male Conor e:06/12/2024 Address:[address] [place], [place] [address] Pcp:Claudia Issa MD Subjective: * Chief Complaints: [...] yes, walking. ?Marital status: . 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 ???Drug/Alcohol:?AUDIT-C (Standard)?Did you have a drink containing [...] and time.? Assessment: * Assessment: 1.?Atherosclerosis of [place] artery of both lower extremities, with unspecified [...] use of a nail nipper and/or dremel-type grinder watch parts, to a more viable healthy nail plate [...] to maintain effectiveness in symptomatic relief - 77945.?Keratoma Treatment:?Parring or Cutting of Benign Hyperkeratotic Lesion(s)?(-56) [...] instrumentation by the physician of record - 21549.? * Procedure Codes:?43347 DEBRI DE NAIL, 6 OR MORE, Modifiers: XS 18860 TRIM SKIN LESIONS, 2 TO 4, Modifiers: XS , Q8 * Follow Up:?3 Months * Images: * Sign off status: Completed true * Provider:?Lucy Higginbotham, SHANKAR Date:? Generated for Latrice smith/Mera/Princess on:?08/05/2024 07:53 AM EDT History and Physical Notes * HPI [...]
--- OUTSIDE RECORDS SUMMARY | 2024-08-05 07:54 | XMS_ITS ---
Author Organization [facility] Address [address] [place] [address] Care Team Providers Care Drafter Electromechanical Name Role Phone Maegan DUNHAM, Claudia Jha Primary Care Provider Unav ailDiana Betancourt Unavailable [phone] Mcknight Encounters Encounter Location Date Provider Diagnosis [address] [address] 06/11/2024 Diana Kat Plan Of Treatment Next Appt Details Provider Name:Diana ibrahim, 09/29/2024 03:15:00 PM, [address] [place] [address], [address], Progress Notes * Josiah CALLAHAN JrDOB:1945 (79 yo M)Acc No.[id number]:06/11/2024 Progress Note Patient:?Josiah CALLAHAN Jr Provider:?Diana Kat DPM :1945???Age:79 Y???Sex:Male Conor e:06/11/2024 Address:[address] [place] [address] [facility] Pcp:Claudia Issa MD Subjective: * Chief Complaints: [...] DPM Date:?0 06/11/2024 Generated for Latrice smith/Mera/Princess on:?08/05/2024 07:54 AM EDT
--- OUTSIDE RECORDS SUMMARY | 2024-08-05 07:54 | XMS_ITS ---
Author Organization [facility] [place] Address [address] [place] [address] Care Team Providers Care Missile Inspector Name Role Phone Maegan DUNHAM, Claudia Jha Primary Care Provider Diana Noel Unavailable [phone] Allergies Allergen (clinical drug ingredient) Drug/Non Drug [...] Ordered Date Performed Result Body Sit e 76225-CJYEROH NAIL, 6 OR MORE 03/13/2024 N/A 46135-SMME SKIN LESIONS, 2 TO 4 03/13/2024 N/A Encounters Encounter Location Date Provider Diagnosis [facility] [place] [address] [place] [address] 03/13/2024 Diana Kat Ingrown nail L60.0 ; Pain in right toe(s) M79.674 ; Tinea unguium B35.1 ; Pain in left toe(s) M79.675 and 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, bilateral legs I70.203 Assessments Encounter Date Diagnosis (ICD Code) Assessment Notes Treatment Notes Treatment Clinical Notes Section Notes 03/13/2024 Ingrown nail (ICD-10 - L60.0) 03/13/2024 Pain in right toe(s) (ICD-10 - M79.674) 03/13/2024 Tinea unguium (ICD-10 - B35.1) 03/13/2024 Pain in left toe(s) (ICD-10 - M79.675) 03/13/2024 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 Silver nitrate used for any petechial bleeding as necessary. Definitive antifungal treatment options have been reviewed and discussed with the patient. The patient chooses, no pharmaceutical tx - 26746 Keratoma Treatment Parring or Cutting o f Benign Hyperkeratotic Lesion(s) (-56) 2-4 Lesions - The Benign hyperkeratotic lesions, as described in exam, were pared, and/or cut utilizing a sterile 15 blade, tissue nippers, and/or dremel - 02492, Q8 Progress Notes * CALLAHANJosiah JrDOB:1945 (78 yo M)Acc No.[id number]:03/13/2024 Progress Note Patient:?Josiah CALLAHAN Provider:?Diana Kat DPM :1945???Age:78 Y???Sex:Male Conor e:03/13/2024 Address:[address] [place], [place] [address] Pcp:Claudia Issa MD Subjective: * Chief Complaints: [...] yes, walking. ?Marital status: . 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 Plan: * Treatment: 2.?Unspecified atheroscleros is of washoe arteries of extremities, bilateral legs?Procedure: 82053-QCRT SKIN LESIONS, 2 TO 4 * Procedures:?Debride [...] use of a nail nipper and/or dremel-type roll grinder operator, to a more viable healthy nail plate or bed tissue 6-10. Silver nitrate used for any petechial bleeding as necessary. Definitive antifungal treatment options have been reviewed and discussed with the patient. The patient chooses, no pharmaceutical tx - 38325.?Keratoma Treatment:?Parring or Cutting of Benign Hyperkeratotic Lesion(s)?(-56) 2-4 Lesions - The Benign hyperkeratotic lesions, as described in exam, were pared, and/or cut utilizing a sterile 15 blade, tissue nippers, and/or dremel - 40188, Q8.? * Procedure Codes:?54666 DEBRI DE NAIL, 6 OR MORE, Modifiers: XS 58968 TRIM SKIN LESIONS, 2 TO 4, Modifiers: [...] Kat DPM Date:?05/13/2023 Generated for Latrice smith/Mera/Princess on:?08/05/2024 07:53 AM EDT History and Physical Notes * HPI (History of Present Illness) Category Sub-Category Detail Notes Category Not es Ingrown nail The ingrown nail has been present for a w [place] The ingrown nail is located on the [...]
--- OUTSIDE RECORDS SUMMARY | 2024-08-05 07:54 | XMS_ITS | Clinical Summary ---
Author Organization [facility] Address [address] [place] [address] Phone Care Team Providers Care Hostler Helper Name Role Phone Claudia Issa MD Primary Care Provider [phone] Allergies Active Allergy Reactions Criticality Noted Date Comments Iodine 08/30/2005 Other 03/08/2016 Seasonal Allergies Medications cetirizine (ZyrTEC) 10 mg capsule Take by mouth daily. Active acetaminophen (TYLENOL) 500 mg tablet Take 1 Tablet by mouth every 6 hours as needed. 1 tablet daily Active desonide (DESOWEN) 0.05 % cream Apply sparingly to affected areas 1 - 2 times a day as needed 01/23/20 14 Active aspirin 81 mg EC tablet 1 CAPSULE DAILY 06/06/19 08 Active simvastatin (ZOCOR) 40 mg tablet TAKE 1 TABLET BY MOUTH EVERYDAY AT BEDTIME 90 tablet 3 03/20/20 24 Active omeprazole (PriLOSEC) [address] capsule TAKE 1 CAPSULE BY MOUTH EVERY DAY 90 capsule 1 05/06/19 25 Active isosorbide mononitrate (IMDUR) 30 mg 24 hr tablet TAKE 1 TABLET BY MOUTH EVERY DAY 90 tablet 05/06/19 25 Active atenoloL (TENORMIN) 50 mg tablet TAKE 1 TABLET BY MOUTH 1 TIME EACH DAY. 90 tablet 1 06/23/19 25 Active furosemide (LASIX) 80 mg tablet TAKE 1/2 TABLET BY MOUTH DAILY 45 tablet 3 06/23/19 25 Active albuterol HFA (PROAIR HFA ; PROVENTIL HFA ; VENTOLIN HFA) 90 mcg/actuation inhaler Inhale 2 puffs by mouth 4 (four) times a day if needed for wheezing. 6.7 g 07/22/19 25 Active fluticasone furoate (Arnuity Ellipta) 100 mcg/actuation blister with device inhalerIndicat ions:Chronic cough Inhale1 puff once daily 14 each 07/24/19 25 Active albuterol HFA (PROAIR HFA ; PROVENTIL HFA ; VENTOLIN HFA) 90 mcg/actuation inhaler Inhale 2 Puffs into the lungs 4 times daily as needed for Cough, Wheezing or Shortness of Breath. 03/21/20 21 025 Discontinued(Re order) fluticasone HFA (FLOVENT HFA) 110 mcg/actuation inhalerIndicat ions:Chronic cough Inhale 1 puff by mouth 2 (two) times a day. Rinse mouth with water after use to reduce aftertaste and incidence of candidiasis. Do not swallow. 12 g 5 07/22/19 25 025 Discontinued Active Problems Problem Noted Date Diagnosed Date Sensorineural hearing loss 06/08/2023 Overview (02/05/2024): Testing in [facility] 05/15/2023. Report scan [...] Encounters Date Type Department Care Team Description 07/29/2024 1:26 PM EDT - 07/29/2024 11:59 PM EDT Hospital Encounter Radiology Department - [address] [phone] Mass of left axilla Discharge Disposition: Home or Self Care 07/21/2024 9:07 AM EDT - 07/21/2024 11:59 PM EDT Hospital Encounter XR - [address] [phone] Left arm pain; Neck pain on left side Discharge Disposition: Home or Self Care 07/21/2024 9:05 AM EDT - 07/21/2024 11:59 PM EDT Hospital Encounter [address] [phone] Left arm pain; Neck pain on left side Discharge Disposition: Home or Self Care 07/21/2024 8:15 AM EDT Office Visit Adult Medicine [address] [phone] Chris Gruber PA Left arm pain (Primary Dx); Neck pain on left side; Decreased hearing of left ear; Chronic cough 07/21/2024 Telephone Adult Medicine [address] [phone] Chris Gruber PA 07/15/2024 Telephone Adult Medicine [address] [place] [address] Claudia Issa MD orders 07/09/2024 9:30 AM EDT Office Visit Vascular Surgery - [place] [address] [place] [phone] Karmen Bronson MD Edema of both lower extremities due to peripheral venous insufficiency (Primary Dx) 06/19/2024 9:35 AM EST - 06/19/2024 11:59 PM EST Hospital Encounter [facility] Ultrasound [address] [place] [phone] Edema Discharge Disposition: Home or Self Care 06/18/2024 1:15 PM EST Office Visit Ne[facility] [address] [place] [address] Amarjit Neff MD Stage 3a chronic kidney [...] Surgery Date Site/Laterality Comments OTHER SURGICAL HISTORY 008883 PROCEDURE: NUCLEAR STRESS TEST OTHER SURGICAL HISTORY PROCEDURE: DENIES PREVIOUS SURGERY COLONOSCOPY 140424 PROCEDURE: OR COLONOSCOPY STOMA DX INCLUDING COLLJ SPEC SPX; COMMENT: June 2000, next due 07/06/10 COLONOSCOPY W/ BIOPSIES 10/14/10 [facility] PROCEDURE: OR COLONOSCOPY STOMA W/BIOPSY SINGLE/MULTIPLE; COMMENT: adenoma and tics; repeat in three years COLONOSCOPY 01/15/14 PROCEDURE: OR COLONOSCOPY STOMA DX INCLUDING COLLJ SPEC SPX; COMMENT: tics; repeat in 5 yrs Medical History Medical History Date Comments Obesity, unspecified DX:Obesity, unspecified Coronary atherosclerosis of [place] coronary artery DX:Coronary atherosclerosis of [place] coronary artery Pure hypercholesterolemia DX:Pur e hypercholesterolemia [...] Care Team (Late st Contact Info) Description 01/26/2025 9:00 AM EDT Office Visit [facility] [place] [address] [place] [address] Claudia Issa MD [address] [place], [place] 06/24/2025 1:15 PM EST Office Visit Nephrology - [address] [phone] Amarjit Neff MD [address] [place] [address] Health Maintenance Due Date Last Done Comments Hepatitis A Vaccines (1 of 2 - Risk 2-dose series) 1964 Colorectal Cancer Screening: Colonoscopy 04/02/2022 01/15/2014 Social [...] Years Completed 02/01/2019, 12/21/2009, 02/28/2000 RSV Immunization Adult Patients Completed 05/15/2023 Influenza Vaccine Completed 01/17/2024, , [...] age to complete this topic Meningococcal B Vaccine Aged Out No l onger eligible based on patient's age to complete this topic RSV Immunization Patients Under 20 months Aged Out No longer eligible based on patient's age to complete this topic Varicella Vaccines Aged Out No longer eligible based on patient's age to complete this topic Procedures Procedure Name Priority Date/Time Associated Diagnosis Comments US AXILLA (BREAST) LIMITED LEFT Routine 07/29/2024 1:41 PM EDT Mass of left axilla XR CERVICAL SPINE 4-5 VIEWS Routine 07/21/2024 [...] Routine 07/16/2023 FALLS RISK ASSESSMENT Routine 03/29/2023 COLONOSCOPY Routine 01/15/2014 from Last 3 Months or Most Recently Relevant to Health Maintenance Results * US Axilla (Breast) Limited Left (07/29/2024 1:41 PM EDT) Anatomical Region Laterality Modality Breast Left Ultrasound 07/30/2024 3:26 AM EDT Narrative 07/30/2024 3:26 AM EDT Ultrasound of the left axilla. History calcification seen in the axilla on x-rays of the shoulder. There is no evidence of lymphadenopathy, cystic or solid masses in the left axilla. CONCLUSIONS: Unremarkable examination. -------- FINAL REPORT -------- Dictated By: Maria A Becerril Dictated Date: 07/30/2024 03:26 ET Assigned Physician: Maria A Becerril Reviewed and Electronically Signed By: Maria A Becerril Signed Date: 07/30/2024 03:26 ET Workstation ID: [id number] Transcribed By: Self Edit Transcribed Date: 07/30/2024 03:26 ET us Chris COSME IMG US PROCEDURES Final Result * XR Cervical Spine 4-5 Views (07/21/2024 [...] Signed Date: 07/21/2024 09:47 ET Workstation ID: [id number] Transcribed By: Self Edit Transcribed Date: 07/21/2024 [...] Signed Date: 07/21/2024 09:47 ET Workstation ID: [id number] Transcribed By: Self Edit Transcribed Date: 07/21/2024 [...] Signed Date: 07/21/2024 09:42 ET Workstation ID: [id number] Transcribed By: Self Edit Transcribed Date: 07/21/2024 [...] Signed Date: 07/21/2024 09:42 ET Workstation ID: [id number] Transcribed By: Self Edit Transcribed Date: 07/21/2024 09:40 ET us Chris COSME IMG XR PROCEDURES Final Result * Hemoglobin A1c (07/18/2024 1:38 PM EDT) Hemoglobin A1C 5.8 <6.5 % LAB CHEMISTRY METHOD 07/18/2024 10:08 PM EDT [facility] Mean Bld Glu Estim. 120 mg/dL LAB CHEMISTRY METHOD 07/18/2024 10:08 PM [facility] Blood Venous blood specimen / Unknown Venipuncture / Unknown 07/18/2024 1:38 PM EDT 07/18/2024 1:38 PM EDT us Jonas Murcia PICK UP WORKER LAB BLOOD ORDERABLES Final R esult [facility] [address] [place] [address], * (ABNORMAL) Basic metabolic panel (07/18/2024 1:38 PM EDT) Sodium 138 133 - 145 mmol/L LAB CHEMISTRY METHOD 07/18/2024 6:01 PM [facility] Potassium 4.0 3.5 - 5.5 mmol/L LAB CHEMISTRY METHOD 07/18/2024 6:01 PM [facility] Chloride 100 96 - 110 mmol/L LAB CHEMISTRY METHOD 07/18/2024 6:01 PM [facility] CO2 32 21 - 32 mmol/L LAB CHEMISTRY METHOD 07/18/2024 6:01 PM [facility] Anion Gap 6 3 - 11 LAB CHEMISTRY METHOD 07/18/2024 6:01 PM [facility] Glucose 143(H) 70 - 100 mg/dL LAB CHEMISTRY METHOD 07/18/2024 6:01 PM [facility] BUN 19 5 - 25 mg/dL LAB CHEMISTRY METHOD 07/18/2024 6:01 PM [facility] Creatinine 1.28 0.70 - 1.30 mg/dL LAB CHEMISTRY METHOD 07/18/2024 6:01 PM [facility] eGFR 56(L) >=60 mL/min/1. 73m2 LAB CHEMISTRY METHOD 07/18/2024 6:01 PM EDT [facility] Comment:Calculation based on the??Chronic Kidney Disease Epidemiology Collaboration (CKD-EPI) equation refit??without adjustment for race. BUN/Creatinine Ratio 14.8 LAB CHEMISTRY METHOD 07/18/2024 6:01 PM EDT [facility] Calcium 9.3 8.5 - 10.5 mg/dL LAB CHEMISTRY METHOD 07/18/2024 6:01 PM EDT [facility] Blood Venous blood specimen / Unknown Venipuncture / Unknown 07/18/2024 1:38 PM EDT 07/18/2024 1:38 PM EDT us Jonas Murcia NP LAB BLOOD ORDERABLES Final R esult [facility] [address] [place] [address], * Vascular US duplex lower extremity venous [...] the upper, mid, and lower calf. Code 87282 -------- FINAL REPORT -------- Dictated By: Karan Fernandez Dictated Date: 06/23/2024 11:22 ET Assigned Physician: Karan Fernandez Reviewed and Electronically Signed By: Karan Fernandez Signed Date: 06/23/2024 11:27 ET Workstation ID: [id number] Transcribed By: Self Edit Transcribed Date: 06/23/2024 [...] in the upper, mid, andlower calf. Code 75518 -------- FINAL REPORT -------- Dictated By: Karan Fernandez Dictated Date: 06/23/2024 11:22 ET Assigned Physician: Karan Fernandez Reviewed and Electronically Signed By: Karan Fernandez Signed Date: 06/23/2024 11:27 ET Workstation ID: [id number] Transcribed By: Self Edit Transcribed Date: 06/23/2024 11:22 ET Karmen Bronson MD CV VASCULAR PROCEDURES Fi nal Result * Lipid panel (11/09/2023) [facility] LDL/HDL Ratio 2 0 - 4 Triglycerides 136 0 - 150 mg/dL Cholesterol 140 0 - 200 mg/dL HDL 68 >=40 mg/dL LDL Cholesterol 45 0 - 100 mg/dL Blood Venous blood specimen / Unknown Historical Provider LAB BLOOD ORDERABLES Mesha l Result * Depression Screening (07/16/2023) Pathologist [facility] Depression Screening abstracted Historical Provider HEALTH MAINTENANCE Final Result * Falls Risk Assessment (03/29/2023) Falls Risk Assessment abstracted Historical Provider HEALTH MAINTENANCE Final Result * Colonoscopy (01/15/2014) Colonoscopy no interpretation , abstracted Anatomical Region Laterality Modality Other [facility] Provider HEALTH MAINTENANCE Final Result from Last 3 Months or Most Recently Relevant to Health Maintenance Insurance MEDICARE [facility] MEDICARE [facility] Care Teams Hostler Helper Relationship Specialty Start Date End Date Claudia Issa MD [address] [place] [address] PCP - General Internal Medicine 12/01/14
--- NOTE | 2024-08-05 10:38 | MHC.AU.HA3 ---
Hearing Instrument Follow-Up- Binaural Date of Visit: 08/05/24 Right Ear: Make, Model, Color, Serial Number: Oticon Real 1 miniRITE-R SN: [id number] Color: Black Pad Tufter Repair Warranty: 07/08/2026 Pad Tufter Loss and Damage Warranty: 07/08/2026 [facility] Service Plan: OPTED OUT Battery Size: Rechargeable Associate Field Service Engineer/Slim Tube: 3/85 Earmold/Dome/CShell/SlimTip:Oticon Soft Silicone with Canal Lock SN: [id number] Type of Wax Guard: miniFit Dispensed By: [facility] Date of Fittin06/25/2023 Left Ear: Make, Model, Color, Serial Number: Oticon REAL 1 miniRITE-R SN:[id number] Color: Black Pad Tufter Repair Warranty: 07/08/2026 Pad Tufter Loss and Damage Warranty: 07/08/2026 [facility] Service Plan: OPTED OUT Battery Size: Rechargeable Associate Field Service Engineer/Slim Tube: 3/85 [place]armold/Dome/CShell/SlimTip: Oticon Soft Silicone with Canal Lock SN: [id number] Type of Wax Guard: miniFit Dispensed By: [facility] Date of Fittin06/25/2023 Follow-Up Summary: Updated hearing test (see audio). Hearing is stable but noted difficulty understanding speech, especially in background noise or while watching television. Also noted right LED light still orange after charging overnight. Reportedly has been ongoing issue which he thought would be resolved when HAs dropped off in June. Connected HAs to Connie, poor battery health of right FERGUSON and firmware update available. Changed right rechargeable battery and updated firmware. Increased to AM3 and increased noise managements settings to address sound quality concerns. No charge - courtesy, as right charging has been ongoing issue. Recommendations: Hearing instrument follow-up or maintenance as needed. Please contact our clinic with any questions or concerns. Diagnosis Code(s): Primary Diagnosis: H90.3 Bilateral Sensorineural Hearing Loss Signature: Provider: Shilpa Hawk, CCC-A
== END 2024-08-05 07:50 | disposition home or self-care (01) ==
LOC: HO.SH 07:49
PROVIDERS: Visit Provider Physician Assistant Medical
DX: Z01.118 Encounter for examination of ears and hearing with other abnormal findings (principal); H90.3 Sensorineural hearing loss, bilateral
CPT/HCPCS: 92552; 92556

== ENCOUNTER 2024-09-04 10:06 | Outpatient (REF) | payer SELFPAY ==
--- OUTSIDE RECORDS SUMMARY | 2024-09-04 11:15 | XMS_ITS ---
Author Organization [facility] Address [address] [place] [address] Care Team Providers Care Fish Frog Or Oyster Farmer Name Role Phone Maegan DUNHAM, Claudia Jha Primary Care Provider Unav ailDiana Betancourt Unavailable [phone] Mcknight Encounters Encounter Location Date Provider Diagnosis [address] [address] 06/11/2024 Diana Kat Plan Of Treatment Next Appt Details Provider Name:Diana ibrahim, 09/29/2024 03:15:00 PM, [address] [place] [address], [phone], Progress Notes * Josiah CALLAHAN JrDOB:1945 (79 yo M)Acc No.[id number]:06/11/2024 Progress Note Patient:?Josiah CALLAHAN Jr Provider:?Diana Kat DPM :1945???Age:79 Y???Sex:Male Conor e:06/11/2024 Address:[address] [place], [place] [address] Pcp:Claudia Issa MD Subjective: * Chief Complaints: [...] DPM Date:?0 06/11/2024 Generated for Latrice smith/Mera/Princess on:?09/04/2024 11:15 AM EDT
--- OUTSIDE RECORDS SUMMARY | 2024-09-04 11:15 | XMS_ITS | Patient Health Record ---
Author Organization [facility] Address [address] [facility] [place] [address] Care Team Providers Care Art Appraiser Name Role Phone Maegan DUNHAM, Claudia Jha Primary Care Provider Unayu KayeDiana araya Unavailable [phone] Hugo Yang Unavailable [phone] NilsLucy frausto Unavailable [phone] Allergies Allergen (clinical drug ingredient) Drug/Non Drug [...] atherosclerosis of arteries of lower limbs (disorder) (26952266719140076 ) Unspecified atherosclerosis of coquille arteries of extremities, bilateral legs (I70.203) Active confirmed Problem 479528873 Lymphedema (I89.0) Active confirmed Problem Bilateral atherosclerosis of arteries of lower limbs (disorder) (14323086584677530 ) Atherosclerosis of coquille artery of both lower extremities, with unspecified presence of clinical manifestation (I70.203) Active confirmed Q7(A), Q8(2B), Q9(1B,2 C) Vital Signs Blood pressure diastolic 50 mm Hg 06/12/2024 Height 5 ft 10 in in 06/12/2024 Blood pressure systolic 135 mm Hg 06/12/2024 Weight 265 lbs 06/12/2024 BMI 38.02 kg/m2 06/12/2024 Procedures Procedure Date Ordered Date Performed Result Body Sit e 73057-RDPY SKIN LESIONS, 2 TO 4 09/20/2023 N/A 36155-CNQUKQP NAIL, 6 OR MORE 03/13/2024 N/A 00660-ADZS SKIN LESIONS, 2 TO 4 03/13/2024 N/A Encounters [facility]counter [facility] Date [facility] [address] [facility]23 Hugo Yang Pain in right toe(s) M79.674 ; Tinea unguium B35.1 ; Pain in left toe(s) M79.675 ; Unspecified atherosclerosis of coquille arteries of extremities, bilateral legs I70.203 ; Lymphedema I89.0 and Xerosis cutis L85.3 [facility] [address] 12/13/2023 Hugo Yang Pain in right toe(s) M79.674 ; Tinea unguium B35.1 ; Pain in left toe(s) M79.675 ; Unspecified atherosclerosis of coquille arteries of extremities, bilateral legs I70.203 ; Lymphedema I89.0 and Xerosis cutis L85.3 [facility] [address] [place] [address] 03/13/2024 Diana Kat Ingrown nail L60.0 ; Pain in right toe(s) M79.674 ; Tinea unguium B35.1 ; Pain in left toe(s) M79.675 and Unspecified atherosclerosis of coquille arteries of extremities, bilateral legs I70.[address] [facility] [address] 06/12/2024 Lucy Higginbotham Atherosclerosis of coquille artery of both lower extremities, with unspecified [...] nail (ICD-10 - L60.0) 06/12/2024 Atherosclerosis of coquille artery of both lower extremities, with unspecified presence of clinical manifestation (ICD-10 - I70.203) Q7(A), Q8(2B), Q9(1B,2C) 06/12/2024 Tinea unguium (ICD-10 - B35.1) 12/13/2023 Tinea unguium (ICD-10 - B35.1) 03/13/2024 Pain in right toe(s) (ICD-10 - M79.674) 09/20/2023 Pain in left toe(s) (ICD-10 - M79.675) 09/20/2023 Unspecified atherosclerosis of coquille arteries of extremities, bilateral legs (ICD-10 - I70.203) 12/13/2023 Pain in left toe(s) (ICD-10 - M79.675) 03/13/2024 Pain in left toe(s) (ICD-10 - M79.675) 03/13/2024 Tinea unguium (ICD-10 - B35.1) 06/12/2024 Pain in right toe(s) (ICD-10 - M79.674) 06/12/2024 Pain in left toe(s) (ICD-10 - M79.675) 03/13/2024 Unspecified atherosclerosis of coquille arteries of extremities, bilateral legs (ICD-10 - I70.203) 12/13/2023 Unspecified atherosclerosis of coquille arteries of extremities, bilateral legs (ICD-10 - I70.203) 09/20/2023 Lymphedema (ICD-10 - I89.0) 09/20/2023 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) 12/13/2023 Lymphedema (ICD-10 - I89.0) 12/13/2023 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) Plan Of Treatment Pending Test Test Name Order Date 17252-LRTKJKG NAIL, 6 OR MORE 03/13/2024 69185-LQHT SKIN LESIONS, 2 TO 4 06/27/19 18380-IJJE SKIN LESIONS, 2 TO 4 09/20/19 42245-QYFL SKIN LESIONS, 2 TO 4 03/13/20 Next Appt Details Provider Name:Diana Valdes alexandria, 09/29/2024 03:15:00 PM, [address] [place], [address], Insurance Providers Payer Name Payer Address Payer Phone Subscriber Number Group Number Insured Name Patient Relationship to Insured Coverage Start Date Coverage End Date Medicare National [employer] [address] [place] [address] [id number] Josiah Torres Self - patient is the insured [facility] [address] [place], [place] [address] [id number] Josiah Torres Self - patient is the insured Medical (General) History Medical History History ICD Code Arthritis asthma Broken bones Cancer Cataracts covid-19 Heart disease High blood pressure Warts Measles Mumps Chicken pox Surgical History Surgery Date(Month/Year) Hospitalization History Reason Date(Month/Year) [facility], ER, broken arm 08/16/23
--- OUTSIDE RECORDS SUMMARY | 2024-09-04 11:15 | XMS_ITS ---
Author Organization [facility] [place] Address [address] [place] [address] Care Team Providers Care Inventory Checker Name Role Phone Maegan DUNHAM, Claudia Jha Primary Care Provider Diana Noel Unavailable [phone] Allergies Allergen (clinical drug ingredient) Drug/Non Drug [...] Ordered Date Performed Result Body Sit e 26725-MLSODWS NAIL, 6 OR MORE 03/13/2024 N/A 09332-JWGB SKIN LESIONS, 2 TO 4 03/13/2024 N/A Encounters Encounter Location Date Provider Diagnosis [facility] [place] [address] [place] [address] 03/13/2024 Diana Kat Ingrown nail L60.0 ; Pain in right toe(s) M79.674 ; Tinea unguium B35.1 ; Pain in left toe(s) M79.675 and Unspecified atherosclerosis of [place] arteries of extremities, bilateral legs I70.203 Assessments Encounter Date Diagnosis (ICD Code) Assessment Notes Treatment Notes Treatment Clinical Notes Section Notes 03/13/2024 Ingrown nail (ICD-10 - L60.0) 03/13/2024 Pain in right toe(s) (ICD-10 - M79.674) 03/13/2024 Tinea unguium (ICD-10 - B35.1) 03/13/2024 Pain in left toe(s) (ICD-10 - M79.675) 03/13/2024 Unspecified atherosclerosis of [place] arteries of extremities, bilateral legs (ICD-10 - I70.203) Plan Of Treatment Pending Test Test Name Order Date 90427-KLITZCP NAIL, 6 OR MORE 03/13/2024 17420-DMJJ SKIN LESIONS, 2 TO 4 03/13/20 24 Next Appt Details Follow Up: 3 Months, Reason: Provider Name:Diana Valdes alexandria, 09/29/2024 03:15:00 PM, [address] [place], [address], Procedure Notes * Category Sub-Category Detail Notes [...] use of a nail nipper and/or dremel-type snag grinder, to a more viable healthy nail plate or bed tissue 6-10. Silver nitrate used for any petechial bleeding as necessary. Definitive antifungal treatment options have been reviewed and discussed with the patient. The patient chooses, no pharmaceutical tx - 92636 Keratoma Treatment Parring or Cutting o f Benign Hyperkeratotic Lesion(s) (-56) 2-4 Lesions - The Benign hyperkeratotic lesions, as described in exam, were pared, and/or cut utilizing a sterile 15 blade, tissue nippers, and/or dremel - 98198, Q8 Progress Notes * CALLAHANJosiah JrDOB:1945 (78 yo M)Acc No.[id number]:03/13/2024 Progress Note Patient:?Josiah CALLAHAN Provider:?Diana Kat DPM :1945???Age:78 Y???Sex:Male Conor e:03/13/2024 Address:[address] [place], [place] [id number] Pcp:Claudia Issa MD Subjective: * Chief Complaints: [...] yes, walking. ?Marital status: . 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 * Medications:?TakingOmeprazol e 20 MG Capsule Delayed [...] M79.675???4.?Tinea unguium - B35.1 (Primary)???5.?Unspecified atherosclerosis of [place] arteries of extremities, bilateral legs - I70.203??? Plan: * Treatment: 2.?Unspecified atheroscleros is of [place] arteries of extremities, bilateral legs?Procedure: 99188-ZEYK SKIN LESIONS, 2 TO 4 * Procedures:?Debride [...] use of a nail nipper and/or dremel-type snag grinder, to a more viable healthy nail plate or bed tissue 6-10. Silver nitrate used for any petechial bleeding as necessary. Definitive antifungal treatment options have been reviewed and discussed with the patient. The patient chooses, no pharmaceutical tx - 43687.?Keratoma Treatment:?Parring or Cutting of Benign Hyperkeratotic Lesion(s)?(-56) 2-4 Lesions - The Benign hyperkeratotic lesions, as described in exam, were pared, and/or cut utilizing a sterile 15 blade, tissue nippers, and/or dremel - 20454, Q8.? * Procedure Codes:?93423 DEBRI DE NAIL, 6 OR MORE, Modifiers: XS 56899 TRIM SKIN LESIONS, 2 TO 4, Modifiers: [...] Kat DPM Date:?05/13/2023 Generated for Latrice smith/Mera/Princess on:?09/04/2024 11:15 AM EDT History and Physical Notes * HPI (History of Present Illness) Category Sub-Category Detail Notes Category Not es Ingrown nail The ingrown nail has been present for a w [place] The ingrown nail is located on the [...]
--- OUTSIDE RECORDS SUMMARY | 2024-09-04 11:15 | XMS_ITS | Clinical Summary ---
Author Organization [facility] Address [address] [place] [address] Phone Care Team Providers Care All Around Gear Machine Operator Name Role Phone Claudia Issa MD Primary Care Provider [phone] Allergies Active Allergy Reactions Criticality Noted Date Comments Iodine 08/30/2005 Other 03/08/2016 Seasonal Allergies Medications cetirizine (ZyrTEC) 10 mg capsule OTC Active acetaminophen (TYLENOL) 500 mg tablet Take 1 Tablet by mouth every 6 hours as needed. 1 tablet daily Active desonide (DESOWEN) 0.05 % cream Apply sparingly to affected areas 1 - 2 times a day as needed 4 Active aspirin 81 mg EC tablet OTC Active simvastatin (ZOCOR) 40 mg tablet TAKE 1 TABLET BY MOUTH EVERYDAY AT BEDTIME 90 tablet 3 4 Active atenoloL (TENORMIN) 50 mg tablet TAKE 1 TABLET BY MOUTH 1 TIME EACH DAY. 90 tablet 1 5 Active furosemide (LASIX) 80 mg tablet TAKE 1/2 TABLET BY MOUTH DAILY 45 tablet 3 5 Active fluticasone furoate (Arnuity Ellipta) 100 mcg/actuation blister with device inhalerIndicati ons:Chronic cough Inhale1 puff once daily 14 each 11 5 Active omeprazole (PriLOSEC) [address] capsule Take 1 capsule (20 mg total) by mouth 1 (one) time each day. 90 capsule 1 5 Active isosorbide mononitrate (IMDUR) 30 mg 24 hr tablet Take 1 tablet (30 mg total) by mouth 1 (one) time each day. 90 tablet 5 Active albuterol HFA (PROAIR HFA ; PROVENTIL HFA ; VENTOLIN HFA) 90 mcg/actuation inhaler Inhale 2 puffs by mouth 4 (four) times a day if needed for wheezing. 6.7 g 5 Active benzonatate (TESSALON) 100 mg capsule Take 1 capsule (100 mg total) by mouth 3 (three) times a day if needed for cough. Do not crush or chew. 42 capsule 5 09/11/19 25 Active omeprazole (PriLOSEC) [address] capsule TAKE 1 CAPSULE BY MOUTH EVERY DAY 90 capsule 1 5 08/12/19 25 Discontinu ed(Reorder ) isosorbide mononitrate (IMDUR) 30 mg 24 hr tablet TAKE 1 TABLET BY MOUTH EVERY DAY 90 tablet 5 08/12/19 25 Discontinu ed(Reorder ) albuterol HFA (PROAIR HFA ; PROVENTIL HFA ; VENTOLIN HFA) 90 mcg/actuation inhaler Inhale 2 puffs by mouth 4 (four) times a day if needed for wheezing. 6.7 g 5 08/12/19 25 Discontinu ed(Reorder ) Active Problems Problem Noted Date Diagnosed Date Sensorineural hearing loss 06/08/2023 Overview (02/05/2024): Testing in [facility] 05/15/2023. Report scan Stage 3a chronic kidney disease ([facility] V24, [facility] V28) 05/01/2023 Assessment & Plan (03/17/2024 12:19 PM EST): Follows with neprhology. Will avoid NSAIDs and stay well hydrated. Prediabetes 09/07/2021 Assessment & Plan (03/17/2024 12:19 PM EST): Will follow A1c. Orders: Basic metabolic panel; Future Hemoglobin A1c; Future Leg edema 03/22/2021 Prostate cancer ([facility] V24, [facility] V28) 07/01 Overview (02/05/2024): Being followed by Dr. Farrar in [facility] HTN (hypertension) 11/27/2012 Assessment & Plan (03/17/2024 12:19 PM EST): HTN well controlled. Continue imdur, atenolol, lasix. Will follow lytes/renal function. Orders: Basic metabolic panel; Future Hemoglobin A1c; Future Morbid obesity ([facility] V24, [facility] V28) 2010 Assessment & Plan (03/17/2024 12:19 PM EST): Efforts towards weight loss encouraged. 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 Overview (02/05/2024): excess in past Encounters Date Type Department Care Team Description 08/14/2024 Telephone Adult Medicine [address] [phone] Claudia Issa MD Cough 08/11/2024 3:45 PM EDT - 08/11/2024 11:59 PM EDT Hospital Encounter [address] [phone] Persistent cough Discharge Disposition: Home or Self Care 08/11/2024 3:30 PM EDT Office Visit Adult Medicine [address] [phone] Jonas Murcia NP Persistent cough (Primary Dx); Bronchitis 08/11/2024 Telephone Adult Medicine [address] [phone] Claudia Issa MD Cough 07/29/2024 1:26 PM EDT - 07/29/2024 11:59 PM EDT Hospital Encounter Radiology Department - [address] [phone] Mass of left axilla Discharge Disposition: Home or Self Care 07/21/2024 9:07 AM EDT - 07/21/2024 11:59 PM EDT Hospital Encounter [address] [phone] Left arm pain; Neck pain on left side Discharge Disposition: Home or Self Care 07/21/2024 9:05 AM EDT - 07/21/2024 11:59 PM EDT Hospital Encounter [address] [phone] Left arm pain; Neck pain on left side Discharge Disposition: Home or Self Care 07/21/2024 8:15 AM EDT Office Visit Adult Medicine [address] [phone] Chris Gruber PA Left arm pain (Primary Dx); Neck pain on left side; Decreased hearing of left ear; Chronic cough 07/21/2024 Telephone Adult Medicine [address] [phone] Chris Gruber PA 07/15/2024 Telephone Adult Medicine [address] [phone] Claudia Issa MD orders 07/09/2024 9:30 AM EDT Office Visit Vascular Surgery [facility] [address] [place] [phone] Karmen Bronson MD Edema of both lower extremities due to peripheral venous insufficiency (Primary Dx) 06/19/2024 9:35 AM EST - 06/19/2024 11:59 PM EST Hospital Encounter [facility] Ultrasound [address] [place] [address] Edema Discharge Disposition: Home or Self Care 06/18/2024 1:15 PM EST Office Visit Nephrology - [address] [place] [address] Amarjit Neff MD Stage 3a chronic kidney disease (CMS/HCC V24, CMS/HCC V28) (Primary Dx); Hypertension, unspecified type from Last [...] Surgery Date Site/Laterality Comments OTHER SURGICAL HISTORY 914826 PROCEDURE: NUCLEAR STRESS TEST OTHER SURGICAL HISTORY PROCEDURE: DENIES PREVIOUS SURGERY COLONOSCOPY 124639 PROCEDURE: [place] COLONOSCOPY STOMA DX INCLUDING COLLJ SPEC SPX; COMMENT: June 2000, next due 07/06/10 COLONOSCOPY W/ BIOPSIES 10/14/10 [facility] PROCEDURE: NH COLONOSCOPY STOMA W/BIOPSY SINGLE/MULTIPLE; COMMENT: adenoma and tics; repeat in three years COLONOSCOPY 01/15/14 PROCEDURE: [place] COLONOSCOPY STOMA DX INCLUDING COLLJ SPEC SPX; COMMENT: tics; repeat in 5 yrs Medical History Medical History Date Comments Obesity, unspecified DX:Obesity, unspecified Coronary atherosclerosis of [place] coronary artery DX:Coronary atherosclerosis of [place] coronary artery Pure hypercholesterolemia DX:Pur e hypercholesterolemia [...] Sign Reading Time Taken Comments Blood Pressure 132/49 08/11/2024 3:21 PM EDT Provider will rechk Pulse 63 08/11/2024 3:21 PM EDT Temperature 36.2 ??C (97.2 ??F) 08/11/2024 3 :21 PM EDT Respiratory Rate 18 08/11/2024 3:21 PM EDT Oxygen Saturation 98% 08/11/2024 3:2 1 PM EDT Inhaled Oxygen Concentration - - Weight 118 kg (261 lb) 08/11/2024 3:21 PM EDT Height 177.8 cm (5' 10 ) 08/11/2024 3:2 1 PM EDT Body Mass Index 37.45 08/11/2024 3:21 PM EDT Plan of Treatment Upcoming Encounters Date Type Department Care Team (Late st Contact Info) Description 01/26/2025 9:00 AM EDT Office Visit Adult Medicine [facility] [address] [place] [address] Claudia Issa MD [address] [place] [address] 06/24/2025 1:15 PM EST Office Visit Nephrology - [place] [address] [place] [address] Amarjit Neff MD [address] [place] [address] Health Maintenance Due Date Last Done Comments Hepatitis A Vaccines (1 of 2 - Risk 2-dose series) 1964 Colorectal Cancer Screening: Colonoscopy 04/02/2022 01/15/2014 Social Influencers of Health Screening 04/02/2022 Falls Risk Assessment 03/29/2024 03/29/2023 Depression Screening 07/15/2024 07/16/2023 Medicare Annual Wellness Visit 07/15/2024 07/16/2023 Zoster Vaccines (2 of 2) 08/11/2024 06/16/2024, 06/2012 COVID-19 Vaccine (7 - Pfizer risk season) 2024 03/12/2024, 03/06/2023, 03/13/2022, Additional history exists Hypertension/CHF/CAD Annual BMP Blood Test 07/18/2025 07/18/2024, 03/17/2024, 11/09/2023, Additional history exists DTaP,Tdap,and Td Vaccines (3 - Td or Tdap) 02/27/2027 02/27/2017, 10/14/2008 Cholesterol Screening (Lipid Panel) 11/08/2028 11/09/2023, 11/09/2023 Pneumococcal Vaccine: 50+ Years Completed 02/01/2019, 12/21/2009, 02/28/2000 RSV Immunization Adult Patients Completed 05/15/2023 Influenza Vaccine Completed 01/17/2024, , 01/05/2022, Additional history exists HIB Vaccines Aged Out [...] Name Priority Date/Time Associated Diagnosis Comments XR CHEST 2 VIEWS Routine 08/11/2024 3:55 PM EDT Persistent cough US AXILLA (BREAST) LIMITED LEFT Routine 07/29/2024 [...] Routine 11/09/2023 HM DEPRESSION SCREENING Routine 07/16/2023 HM FALLS RISK ASSESSMENT Routine 03/29/2023 HM COLONOSCOPY Routine 01/15/2014 from Last 3 Months or Most Recently Relevant to Health Maintenance Results * XR Chest 2 Views (08/11/2024 3:55 PM EDT) Anatomical Region Laterality Modality Body Radiographic Gertrudis ging 08/11/2024 4:48 PM EDT Impressions 08/11/2024 4:50 PM EDT No acute pulmonary pathology. -------- FINAL REPORT -------- Dictated By: Ronda Li Dictated Date: 08/11/2024 16:48 ET Assigned Physician: Ronda Li Reviewed and Electronically Signed By: Ronda Li Signed Date: 08/11/2024 16:50 ET Workstation ID: [id number] Transcribed By: Self Edit Transcribed Date: 08/11/2024 16:48 ET Narrative 08/11/2024 4:50 PM EDT CHEST, TWO VIEWS HISTORY: ??Cough, persistent . TECHNIQUE: Frontal and lateral views of the chest. PRIOR: Chest x-ray 02/19/2024. FINDINGS: The lungs are clear. No pleural effusion is seen. No pneumothorax is seen. The cardiac diameter is within normal limits. No acute or aggressive appearing bony abnormalities are seen. ??There is degenerative change of the right shoulder. There is curvature and degenerative change of the spine. There are bridging osteophytes of the spine. Procedure Note Ronda Li MD - 08/11/2024 CHEST, TWO VIEWS HISTORY: Cough, persistent . TECHNIQUE: Frontal and lateral views of the chest. PRIOR: Chest x-ray 02/19/2024. FINDINGS: The lungs are clear. No pleural effusion is seen. No pneumothorax is seen. The cardiac diameter is within normal limits. No acute or aggressive appearing bony abnormalities are seen. There isdegenerative change of the right shoulder. There is curvature anddegenerative change of the spine. There are bridging osteophytes of thespine. IMPRESSION: No acute pulmonary pathology. -------- FINAL REPORT -------- Dictated By: Ronda Li Dictated Date: 08/11/2024 16:48 ET Assigned Physician: Ronda Li Reviewed and Electronically Signed By: Ronda Li Signed Date: 08/11/2024 16:50 ET Workstation ID: [id number] Transcribed By: Self Edit Transcribed Date: 08/11/2024 16:48 ET us Jonas Murcia NP IMG XR PROCEDURES Final Resu lt * US Axilla (Breast) Limited Left (07/29/2024 [...] Signed Date: 07/30/2024 03:26 ET Workstation ID: [id number] Transcribed By: Self Edit Transcribed Date: 07/30/2024 [...] Signed Date: 07/21/2024 09:47 ET Workstation ID: [id number] Transcribed By: Self Edit Transcribed Date: 07/21/2024 [...] Signed Date: 07/21/2024 09:47 ET Workstation ID: [id number] Transcribed By: Self Edit Transcribed Date: 07/21/2024 [...] Signed Date: 07/21/2024 09:42 ET Workstation ID: [id number] Transcribed By: Self Edit Transcribed Date: 07/21/2024 [...] Signed Date: 07/21/2024 09:42 ET Workstation ID: [id number] Transcribed By: Self Edit Transcribed Date: 07/21/2024 09:40 ET us Chris COSME IMG XR PROCEDURES Final Result * Hemoglobin A1c (07/18/2024 1:38 PM EDT) Hemoglobin A1C 5.8 <6.5 % LAB CHEMISTRY METHOD 07/18/2024 10:08 PM EDT [facility] Mean Bld Glu Estim. 120 mg/dL LAB CHEMISTRY METHOD 07/18/2024 10:08 PM EDT [facility] Blood Venous blood specimen / Unknown Venipuncture / Unknown 07/18/2024 1:38 PM EDT 07/18/2024 1:38 PM EDT Jonas Murcia NP LAB BLOOD ORDERABLES Final R esult [facility] [address] [place] [address], * (ABNORMAL) Basic metabolic panel (07/18/2024 1:38 PM EDT) Sodium 138 133 - 145 mmol/L LAB CHEMISTRY METHOD 07/18/2024 6:01 PM [facility] Potassium 4.0 3.5 - 5.5 [...] LAB CHEMISTRY METHOD 07/18/2024 6:01 PM EDT [facility] Calcium 9.3 8.5 - 10.5 mg/dL LAB CHEMISTRY METHOD 07/18/2024 6:01 PM EDT [facility] Blood Venous blood specimen / Unknown Venipuncture / Unknown 07/18/2024 1:38 PM EDT 07/18/2024 1:38 PM EDT us Jonas Murcia [employer] LAB BLOOD ORDERABLES Final R esult [facility] [address] [place] [address], * Vascular US duplex lower extremity venous [...] the upper, mid, and lower calf. Code 89983 -------- FINAL REPORT -------- Dictated By: Karan Fernandez Dictated Date: 06/23/2024 11:22 ET Assigned Physician: Karan Fernandez Reviewed and Electronically Signed By: Karan Fernandez Signed Date: 06/23/2024 11:27 ET Workstation ID: [id number] Transcribed By: Self Edit Transcribed Date: 06/23/2024 [...] in the upper, mid, andlower calf. Code 94025 -------- FINAL REPORT -------- Dictated By: Karan Fernandez Dictated Date: 06/23/2024 11:22 ET Assigned Physician: Karan Fernandez Reviewed and Electronically Signed By: Karan Fernandez Signed Date: 06/23/2024 11:27 ET Workstation ID: [id number] Transcribed By: Self Edit Transcribed Date: 06/23/2024 11:22 ET Karmen Bronson MD CV VASCULAR PROCEDURES Fi nal Result * Lipid panel (11/09/2023) [facility] [address] LDL/HDL Ratio 2 0 - 4 Triglycerides 136 0 - 150 mg/dL Cholesterol 140 0 - 200 mg/dL HDL 68 >=40 mg/dL LDL Cholesterol 45 0 - 100 mg/dL Blood Venous blood specimen / Unknown Historical Provider LAB BLOOD ORDERABLES Mesha l Result * Depression Screening (07/16/2023) [facility] Depression Screening abstracted Historical Provider HEALTH MAINTENANCE Final Result * Falls Risk Assessment (03/29/2023) Falls Risk Assessment abstracted Historical Provider HEALTH MAINTENANCE Final Result * Colonoscopy (01/15/2014) Colonoscopy no interpretation , abstracted Anatomical Region Laterality Modality Other us Historical Provider HEALTH MAINTENANCE Final Result from Last 3 Months or Most Recently Relevant to Health Maintenance Insurance MEDICARE [facility] MEDICARE [facility] Care Teams All Around Gear Machine Operator Relationship Specialty Start Date End Date Claudia Issa MD [address] [place] [address] PCP - General Internal Medicine 12/01/14
--- OUTSIDE RECORDS SUMMARY | 2024-09-04 11:15 | XMS_ITS ---
Author Organization [facility] [place]ena[facility] Address [address] [facility] [place] [address] Care Team Providers Care Machine Sweeper Brush Maker Name Role Phone Maegan DUNHAM, Claudia Jha Primary Care Provider Mayte guerrero Diana Kat Unavailable [phone] Lucy Higginbotham Unavailable [phone] Allergies Allergen (clinical drug ingredient) Drug/Non Drug [...] atherosclerosis of arteries of lower limbs (disorder) ([id number] ) Atherosclerosis of [place] artery of both lower extremities, with unspecified presence of clinical manifestation (I70.203) Active confirmed Q7(A), Q8(2B), Q9(1B,2 C) Vital Signs Height 5 ft 10 in in 06/12/2024 Weight 265 lbs 06/12/2024 BMI 38.02 kg/m2 06/12/2024 Blood pressure systolic 135 mm Hg 06/12/19 25 Blood pressure diastolic 50 mm Hg 025 Encounters Encounter Location Date Provider Diagnosis [facility] [address] 06/12/2024 Lucy Higginbotham Atherosclerosis of [place] artery of both lower extremities, with unspecified presence of clinical manifestation I70.203 ; Tinea unguium B35.1 ; Pain in right toe(s) M79.674 and Pain in left toe(s) M79.675 Assessments Encounter Date Diagnosis (ICD Code) Assessment Notes Treatment Notes Treatment Clinical Notes Section Notes 06/12/2024 Atherosclerosis of [place] artery of both lower extremities, with unspecified presence of clinical manifestation (ICD-10 - I70.203) Q7(A), Q8(2B), Q9(1B,2C) 06/12/2024 Tinea unguium (ICD-10 - B35.1) 06/12/2024 Pain in right toe(s) (ICD-10 - M79.674) 06/12/2024 Pain in left toe(s) (ICD-10 - M79.675) Plan Of Treatment Next Appt Details Follow Up: 3 Months, Reason: Provider Name:Diana ibrahim, 09/29/2024 03:15:00 PM, [address] [place] [address], [phone], Procedure Notes * Category Sub-Category Detail Notes [...] use of a nail nipper and/or dremel-type seater grinder, to a more viable healthy nail [...] to maintain effectiveness in symptomatic relief - 13183 Keratoma Treatment Parring or Cutting o f [...] instrumentation by the physician of record - 07067 Progress Notes * Josiah CALLAHAN JrDOB:1945 (79 yo M)Acc No.[id number]:06/12/2024 Progress Note Patient:?Josaih CALLAHAN Jr Provider:?Lucy Higginbotham DPM :1945???Age:79 Y???Sex:Male Conor e:06/12/2024 Address:[address] [place] [address] [id number] Pcp:Claudia Issa MD Subjective: * Chief Complaints: [...] yes, walking. ?Marital status: . ?Occupation: Retired/ [employer]. ???Drug/Alcohol:?AUDIT-C (Standard)?Did you have a drink containing [...] and time.? Assessment: * Assessment: 1.?Atherosclerosis of [place] artery of both lower extremities, with unspecified [...] use of a nail nipper and/or dremel-type seater grinder, to a more viable healthy nail [...] to maintain effectiveness in symptomatic relief - 93121.?Keratoma Treatment:?Parring or Cutting of Benign Hyperkeratotic Lesion(s)?(-56) [...] instrumentation by the physician of record - 65014.? * Procedure Codes:?13498 DEBRI DE NAIL, 6 OR MORE, Modifiers: XS 95688 TRIM SKIN LESIONS, 2 TO 4, Modifiers: XS , Q8 * Follow Up:?3 Months * Images: * Sign off status: Completed true * Provider:?Lucy Higginbotham DPM Date:? Generated for Latrice smith/Mera/Princess on:?09/04/2024 11:14 AM EDT History and Physical Notes * [...]
== END 2024-09-04 10:07 | disposition home or self-care (01) ==
LOC: HO.HAP 10:06
PROVIDERS: Visit Provider Internal Medicine
DX: Z46.1 Encounter for fitting and adjustment of hearing aid (principal); H90.3 Sensorineural hearing loss, bilateral
CPT/HCPCS: V5267

== ENCOUNTER 2024-10-02 13:47 | Outpatient (REF) | payer SELFPAY ==
--- NOTE | 2024-10-02 14:25 | MHC.AU.HA3 ---
Hearing Instrument Follow-Up- Binaural Date of Visit: 10/02/24 Right Ear: Make, Model, Color, Serial Number: Oticon Real 1 miniRITE-R SN: [id number] Color: Black Maintenance Job Titles Repair Warranty: 07/08/2026 Maintenance Job Titles Loss and Damage Warranty: 07/08/2026 [facility] Service Plan: OPTED OUT Battery Size: Rechargeable Physical Therapy Technician/Slim Tube: 3/85 [place]/Dome/CShell/SlimTip:Oticon Soft Silicone with Canal Lock SN: [id number] Type of Wax Guard: miniFit Dispensed By: [facility] Date of Fittin06/25/2023 Left Ear: Make, Model, Color, Serial Number: Oticon REAL 1 miniRITE-R SN:[id number] Color: Black Maintenance Job Titles Repair Warranty: 07/08/2026 Maintenance Job Titles Loss and Damage Warranty: 07/08/2026 [facility] Service Plan: OPTED OUT Battery Size: Rechargeable Physical Therapy Technician/Slim Tube: 85 [place]/Dome/CShell/SlimTip: Oticon Soft Silicone with Canal Lock SN: [id number] Type of Wax Guard: miniFit Dispensed By: [facility] Date of Fittin06/25/2023 Follow-Up Summary: Josiah reports his right hearing aid is charged but not making start up jingle or amplifying sound. Cleaned both aids. Ran through dehumidifier. Brushed out microphones. Vacuumed debris from microphones and manager community development connection points. Right still not working. Replaced manager community development. Listening check positive for both aids. Josiah reports improvement. Recommendations: Recommendations: Hearing instrument follow-up or maintenance as needed. Diagnosis Code(s): Primary Diagnosis: H90.3 Bilateral Sensorineural Hearing Loss Signature: Provider: Shilpa Roberson, [facility]
--- OUTSIDE RECORDS SUMMARY | 2024-10-02 16:20 | XMS_ITS | Patient Health Record ---
Author Organization [facility] [place] Address [address] [facility] [place] [address] Care Team Providers Care Transmission And Coordination Engineer Name Role Phone Maegan DUNHAM, Claudia Jha Primary Care Provider Unayu KatDiana Unavailable [phone] Hugo Yang Unavailable [phone] NilsLucy frausto Unavailable [phone] Allergies Allergen (clinical drug ingredient) Drug/Non Drug Allergy documented on EMR Reaction Allergy Type Onset Date Status Iodine nausea and vomiting Drug Allergy Active Adhesive rash Allergy Active Reason For Referral No Information Medications Medication SIG (Take, Route, Frequency, Duration) Notes Start Date End Date Status Ketoconazole 2 % as directed A ctive Isosorbide Mononitrate Active Nitroglycerin Active Atenolol 25 MG as directed Act ana Aspirin 81 81 MG 1 tablet Act ana Furosemide 80 MG as directed A ctive Desonide 0.05 % as directed Ac tive Famotidine 20 MG as directed A ctive Simvastatin 40 MG as directed Active Albuterol Sulfate 108 (90 Base) MCG/ACT 1 puff as needed Active Omeprazole 20 MG as directed A ctive Flonase Not-Taking Social History Tobacco Use: Social History Observation [...] atherosclerosis of arteries of lower limbs (disorder) (71602548594712623 ) Unspecified atherosclerosis of [place] arteries of extremities, bilateral legs (I70.203) Active confirmed Problem 225641993 Lymphedema (I89.0) Active confirmed Problem Bilateral atherosclerosis of arteries of lower limbs (disorder) (65207866981791887 ) Atherosclerosis of [place] artery of both lower extremities, with unspecified presence of clinical manifestation (I70.203) Active confirmed Q7(A), Q8(2B), Q9(1B,2 C) Vital Signs Blood pressure diastolic 60 mm Hg 09/29/2024 Height 5 ft 10 in in 09/29/2024 Blood pressure systolic 135 mm Hg 09/29/2024 Weight 265 lbs 09/29/2024 BMI 38.02 kg/m2 09/29/2024 Procedures Procedure Date Ordered Date Performed Result Body Sit e 31099-EWYUNUF NAIL, 6 OR MORE 03/13/2024 N/A 76199-[facility] SKIN LESIONS, 2 TO 4 03/13/2024 N/A Encounters Encounter Location Date Provider Diagnosis [address] [address] 12/13/2023 Hugo Yang Pain in right toe(s) M79.674 ; Tinea unguium B35.1 ; Pain in left toe(s) M79.675 ; Unspecified atherosclerosis of [place] arteries of extremities, bilateral legs I70.203 ; Lymphedema I89.0 and Xerosis cutis L85.[facility] [address] 03/13/2024 Diana Kat Ingrown nail L60.0 ; Pain in right toe(s) M79.674 ; Tinea unguium B35.1 ; Pain in left toe(s) M79.675 and Unspecified atherosclerosis of [place] arteries of extremities, bilateral legs I70.[address] [address] 06/12/2024 Lucy Higginbotham Atherosclerosis of [place] artery of both lower extremities, with unspecified presence of clinical manifestation I70.203 ; Tinea unguium B35.1 ; Pain in right toe(s) M79.674 and Pain in left toe(s) M79.675 [facility] [place] [address] [place] [address] 09/29/2024 Diana Kat Atherosclerosis of [place] artery of both lower extremities, with unspecified presence of clinical manifestation I70.203 ; Tinea unguium B35.1 ; Pain in right toe(s) M79.674 and Pain in left toe(s) M79.675 Assessments Encounter Date Diagnosis (ICD Code) Assessment Notes Treatment Notes Treatment Clinical Notes Section Notes 12/13/2023 Pain in right toe(s) (ICD-10 - M79.674) 03/13/2024 Ingrown nail (ICD-10 - L60.0) 06/12/2024 Atherosclerosis of [place] artery of both lower extremities, with unspecified presence of clinical manifestation (ICD-10 - I70.203) Q7(A), Q8(2B), Q9(1B,2C) 09/29/2024 Atherosclerosis of [place] artery of both lower extremities, with unspecified presence of clinical manifestation (ICD-10 - I70.203) Q7(A), Q8(2B), Q9(1B,2C) 09/29/2024 Tinea unguium (ICD-10 - B35.1) 06/12/2024 Tinea unguium (ICD-10 - B35.1) 12/13/2023 Tinea unguium (ICD-10 - B35.1) 03/13/2024 Pain in right toe(s) (ICD-10 - M79.674) 12/13/2023 Pain in left toe(s) (ICD-10 - M79.675) 03/13/2024 Pain in left toe(s) (ICD-10 - M79.675) 03/13/2024 Tinea unguium (ICD-10 - B35.1) 06/12/2024 Pain in right toe(s) (ICD-10 - M79.674) 09/29/2024 Pain in right toe(s) (ICD-10 - M79.674) 09/29/2024 Pain in left toe(s) (ICD-10 - M79.675) 06/12/2024 Pain in left toe(s) (ICD-10 - M79.675) 03/13/2024 Unspecified atherosclerosis of [place] arteries of extremities, bilateral legs (ICD-10 - I70.203) 12/13/2023 Unspecified atherosclerosis of [place] arteries of extremities, bilateral legs (ICD-10 - I70.203) 12/13/2023 Lymphedema (ICD-10 - I89.0) 12/13/2023 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) Plan Of Treatment Pending Test Test Name Order Date 65405-RFBZGSI NAIL, 6 OR MORE 03/13/2024 65894-DKHB SKIN LESIONS, 2 TO 4 06/27/19 04661-QXCW SKIN LESIONS, 2 TO 4 09/20/19 93223-NIRY SKIN LESIONS, 2 TO 4 03/13/20 Next Appt Details Provider Name:Diana Valdes alexandria, 12/01/2024 11:30:00 AM, [address] [facility], [place], [address], Insurance Providers Payer Name Payer Address Payer Phone Subscriber Number Group Number Insured Name Patient Relationship to Insured Coverage Start Date Coverage End Date Medicare National Govt Svcs Inc [address] [place] [address] [id number] Josiah Torres Self - patient is the insured [place] [facility] [address] [place] [address] [id number] Josiah Torres Self - patient is the insured Medical (General) History Medical History History ICD Code Arthritis asthma Broken bones Cancer Cataracts covid-19 Heart disease High blood pressure Warts Measles Mumps Chicken pox Surgical History Surgery Date(Month/Year) Hospitalization History Reason Date(Month/Year) [facility], ER, broken arm 08/16/23
== END 2024-10-02 13:48 | disposition home or self-care (01) ==
LOC: HO.HAP 13:47
PROVIDERS: Visit Provider Internal Medicine
DX: Z46.1 Encounter for fitting and adjustment of hearing aid (principal); H90.3 Sensorineural hearing loss, bilateral
CPT/HCPCS: 92593

== ENCOUNTER 2025-01-06 12:18 | Outpatient (AMB) | payer MEDICARE, OTHER, SELFPAY ==
--- OUTSIDE RECORDS SUMMARY | 2024-06-11 08:30 | XMS_ITS ---
Author Organization [facility] Address [address] [place] [phone] Care Team Providers Care Team Physician Name Role Phone Maegan DUNHAM, Claudia Jha Primary Care Provider Unav ailable Diana Kat Unavailable [phone] Mcknight Encounters Encounter Location Date Provider Diagnosis [address] [address] 06/11/2024 Diana Kat Plan Of Treatment Next Appt Details Provider Name:Diana Lucio ibrahim, 03/02/2025 09:00:00 AM, [address] [place] [address], [phone], Progress Notes * Josiah CALLAHAN DOB:1945 (79 yo M)Acc No.[id number]:06/11/2024 Progress Note Patient: Michael SUZANNE Josiah Rodriguez Jr Provider: David Kat DPM :1945 A ge:79 Y S ex:Male Date:06/11/2024 Address:[address] [place], [place] [id number] Pcp:Claudia Issa MD Subjective: * Chief Complaints: * [address] Mcknight. * Medical History: Objective: * Vitals: Assessment: Plan: * Treatment: * Images: * The named appointment provid er may or may not be the originator of this progress note, and it is not deemed complete until electronically signed by the appointment provider. Sign off status: Pending * Provider: David Kat, SHANKAR Date: 0 06/11/2024 Generated for Latrice smith/Mera/Princess on: 0 01/06/2025 02:41 PM EDT
[2025-01-06 12:19] VITALS: BP 118/60; PULSE 66; TEMP 36.7; O2SAT 96; BMI 32.5
--- NOTE | 2025-01-06 12:19 | MHC.OFFWIV ---
Intake Vital Signs 01/06/25 12:19 Height 6 ft 5 in Weight 274 lb BMI 32.5 BP 118/60 Blood Pressure Location Lt brachial Position Sitting Pulse 66 Pulse Source Pulse Oximeter Temp 98.1 F Temp Source Oral Pulse Oximetry (%) 96 Oxygen Delivery Method Room Air Intake Visit Reasons: ep rash under right arm Intake Note: pt presents with a red and scaly rash under right axilla for unknown amount of time Allergies iodine Allergy (Verified 01/06/25 12:23) Vomiting Do you need a note to return to daycare/school/sports/work: No HPI HPI Comments History of Present Illness Details History - The patient is an 79-year-old male presenting with a rash under the arm. - The rash was first noticed this morning and is not associated with pain or itching. - He states that he puts his deodorant on in the dark and didn't notice the rash at first. - He had his look at the area. - The patient applied bacitracin to the area upon noticing the rash. - He has no associated pain with blisters and it does not itch. - He was not bit by a bug or insect. - He has no new foods, lotions, soaps, clothes, detergents, deodorants, or shave. - The patient received a shingles vaccination, with the last dose administered in September. - He denies fever, chills, CP, SOB, or joint pain. Physical Exam General: Cooperative, healthy appearing, comfortable, no acute distress and well developed Orientation: Patient oriented x3 Limitations: No limitations Respiratory: Normal respiratory effort and able to speak in complete sentences. Clear to auscultation bilaterally. No w/r/r noted. Cardiovascular: RRR, no m/r/g noted. Normal S1 and S2 Skin: Erythematous, rough, slightly raised, non-tender, dry macular oval shaped rash noted in the right axilla. Patient was informed and verbally consented to the use of an ambient scribe for clinic note documentation during this visit [facility] Social History Current occupation: right handed Review of Systems Const All systems reviewed & are unremarkable except as noted in HPI and below Physical Exam Vital Signs: Last Vital Signs Temp 98.1 F 01/06/25 12:19 Pulse 66 01/06/25 12:19 BP 118/60 01/06/25 12:19 Pulse Ox 96 01/06/25 12:19 Oxygen Delivery Method Room Air 01/06/25 12:19 BMI result Body Mass Index 32.5 Assessment & Plan Assessment & Plan (1) Rash: Code(s): R21 - Rash and other nonspecific skin eruption Plan Most likely fungal rash and not likely shingles plan - apply cream BID for 2 weeks - keep area dry - avoid deodorant until to rash is healed - follow up with PCP Medications: New ketoconazole 2% 1 appl topical BID 30 grams 0RF Coding Level of Care Code Est Pt Level 3 (40227) Diagnoses Rash R21
--- OUTSIDE RECORDS SUMMARY | 2025-01-06 14:41 | XMS_ITS ---
Author Name [facility] Organization Unknown Care Team Organization Name Specialty Phone Email Start Date End Da te [facility] 12/17/2024 [facility] 03/07/2022 12/17/2023
--- OUTSIDE RECORDS SUMMARY | 2025-01-06 14:41 | XMS_ITS | Clinical Summary ---
Author Organization [facility] Address [address] [place] [address] Phone Care Team Providers Care Marine Fisheries Technician Name Role Phone Claudia Issa MD Primary Care Provider [phone] Allergies Active Allergy Reactions Criticality Noted Date [...] (Arnuity Ellipta) 100 mcg/actuation blister with device inhalerIndicatio ns:Chronic cough Inhale1 puff once daily 14 each [...] needed for wheezing. 6.7 g 5 Active Active Problems Problem Noted Date Diagnosed Date Sensorineural hearing loss 06/08/2023 Overview (02/05/2024): Testing in [facility] 05/15/2023. Report scan Stage 3a chronic kidney disease ([facility] V24, [facility] V28) 05/01/2023 Assessment & Plan (03/17/2024 12:19 PM EST): Follows with neprhology. Will avoid NSAIDs and stay well hydrated. Prediabetes 09/07/2021 Assessment & Plan (03/17/2024 12:19 PM EST): Will follow A1c. Orders: Basic metabolic panel; Future Hemoglobin A1c; Future Leg edema 03/22/2021 Prostate cancer ([facility] V24, [facility] V28) 07/01 Overview (02/05/2024): Being followed by Dr. Farrar in [facility] HTN (hypertension) 11/27/2012 Assessment & Plan (03/17/2024 12:19 PM EST): HTN well controlled. Continue imdur, atenolol, lasix. Will follow lytes/renal function. Orders: Basic metabolic panel; Future Hemoglobin A1c; Future Morbid obesity ([facility] V24, [facility] V28) 2010 Assessment & Plan (03/17/2024 12:19 PM EST): Efforts towards weight loss encouraged. 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 Overview (02/05/2024): excess in past Immunizations Name Administration Dates Next Due COVID-19 [...] Surgery Date Site/Laterality Comments OTHER SURGICAL HISTORY 970702 PROCEDURE: NUCLEAR STRESS TEST OTHER SURGICAL HISTORY PROCEDURE: DENIES PREVIOUS SURGERY COLONOSCOPY 943250 PROCEDURE: DC COLONOSCOPY STOMA DX INCLUDING COLLJ SPEC SPX; COMMENT: June 2000, next due 07/06/10 COLONOSCOPY W/ BIOPSIES 10/14/10 [facility] PROCEDURE: DC COLONOSCOPY STOMA W/BIOPSY SINGLE/MULTIPLE; COMMENT: adenoma and tics; repeat in three years COLONOSCOPY 01/15/14 PROCEDURE: DC COLONOSCOPY STOMA DX INCLUDING COLLJ SPEC SPX; COMMENT: tics; repeat in 5 yrs Medical History Medical History Date Comments Obesity, unspecified DX:Obesity, unspecified Coronary atherosclerosis of [place]a'[place] coronary artery DX:Coronary atherosclerosis of [place]a'[place] coronary artery Pure hypercholesterolemia DX:Pur e hypercholesterolemia [...] 63 08/11/2024 3:21 PM EDT Temperature 36.2 C (97.2 F) 08/11/2024 3:21 PM EDT Respiratory Rate 18 08/11/2024 3:21 [...] 9:00 AM EDT Office Visit Adult Medicine [facility] [address] [place] [address] Claudia Issa MD [address] [place] [address] 06/24/2025 1:15 PM EST Office Visit Nephrology - [employer] [address] [place] [phone] Amarjit Neff MD [address] [place] [address] Health Maintenance Due Date Last Done Comments Hepatitis A Vaccines (1 of 2 - Risk 2-dose series) 1964 Colorectal Cancer Screening: Colonoscopy 04/02/2022 01/15/2014 Social Influencers of Health Screening 04/02/2022 Falls Risk Assessment 03/29/2024 03/29/2023 Depression Screening 04/30/2024 07/16/2023 Medicare Annual Wellness Visit 07/15/2024 07/16/2023 Zoster Vaccines (2 of 2) 08/11/2024 06/16/2024, 06/2012 COVID-19 Vaccine (7 - Pfizer risk season) 2024 03/12/2024, 03/06/2023, 03/13/2022, Additional history exists Influenza Vaccine (#1) 2024 , 01/17/2023, 01/05/2022, Additional history exists Hypertension/CHF/CAD Annual BMP Blood Test 07/18/2025 07/18/2024, 03/17/2024, 11/09/2023, Additional history exists DTaP,Tdap,and Td Vaccines (3 - Td or Tdap) 02/27/2027 02/27/2017, 10/14/2008 Cholesterol Screening (Lipid Panel) 11/08/2028 11/09/2023, 11/09/2023 Pneumococcal Vaccine: 50+ Years Completed 02/01/2019, 12/21/2009, 02/28/2000 RSV Immunization Adult Patients Completed 05/15/2023 HIB Vaccines Aged Out No longer eligi [...] Procedure Name Priority Date/Time Associated Diagnosis Comments BASIC METABOLIC PANEL Routine 07/18/2024 1:38 PM EDT Hypertension, unspecified type Prediabetes LIPID PANEL Routine 11/09/2023 DEPRESSION SCREENING Routine 07/16/2023 FALLS RISK ASSESSMENT Routine 03/29/2023 COLONOSCOPY Routine 01/15/2014 from Last 3 Months or Most Recently Relevant to Health Maintenance Results * (ABNORMAL) Basic metabolic panel (07/18/2024 [...] LAB CHEMISTRY METHOD 07/18/2024 6:01 PM EDT [facility] Creatinine 1.28 0.70 - 1.30 mg/dL LAB CHEMISTRY METHOD 07/18/2024 6:01 PM EDT [facility] eGFR 56(L) >=60 mL/min/1. 73m2 LAB CHEMISTRY METHOD 07/18/2024 6:01 PM EDT [facility] Comment:Calculation based on the Chronic Kidney Disease Epidemiology Collaboration (CKD-EPI) equation refit without adjustment for race. BUN/Creatinine Ratio 14.8 LAB CHEMISTRY METHOD 07/18/2024 6:01 PM EDT [facility] Calcium 9.3 8.5 - 10.5 mg/dL LAB CHEMISTRY METHOD 07/18/2024 6:01 PM EDT [facility] Blood Venous blood specimen / Unknown Venipuncture / Unknown 07/18/2024 1:38 PM EDT 07/18/2024 1:38 PM EDT Jonas Murcia NP LAB BLOOD ORDERABLES Final R esult [facility] [address] [place] [address], * Lipid panel (11/09/2023) Pathologist [facility] LDL/HDL Ratio 2 0 - 4 Triglycerides 136 0 - 150 mg/dL Cholesterol 140 0 - 200 mg/dL HDL 68 >=40 mg/dL LDL Cholesterol 45 0 - 100 mg/dL Blood Venous blood specimen / Unknown Historical Provider LAB BLOOD ORDERABLES Mesha l Result * Depression Screening (07/16/2023) Pathologist [facility] Depression Screening abstracted Historical Provider HEALTH MAINTENANCE Final Result * Falls Risk Assessment (03/29/2023) Pathologist [facility] Falls Risk Assessment abstracted Historical Provider HEALTH MAINTENANCE Final Result * Colonoscopy (01/15/2014) Colonoscopy no interpretation , abstracted Anatomical Region Laterality Modality Other Historical Provider HEALTH MAINTENANCE Final Result from Last 3 Months or Most Recently Relevant to Health Maintenance Insurance MEDICARE [facility] MEDICARE [facility] Care Teams Marine Fisheries Technician Relationship Specialty Start Date End Date Claudia Issa MD [address] [place] [address] PCP - General Internal Medicine 12/01/14
--- OUTSIDE RECORDS SUMMARY | 2025-01-06 14:41 | XMS_ITS | Patient Health Record ---
Author Organization [facility] [place] Address [address] [facility] [place] [address] Care Team Providers Care Armored Car Guard And Driver Name Role Phone Maegan DUNHAM, Claudia Jha Primary Care Provider Mayte guerrero Diana Kat Unavailable [phone] Lucy Higginbotham Unavailable [phone] Allergies Allergen (clinical drug ingredient) Drug/Non Drug Allergy documented on EMR Reaction Allergy Type Onset Date Status Iodine nausea and vomiting Drug Allergy Active Adhesive rash Allergy Active Reason For Referral No Information Medications Medication SIG (Take, Route, Frequency, Duration) Notes Start Date End Date Status Isosorbide Mononitrate Active Ketoconazole 2 % as directed A ctive Nitroglycerin Active Simvastatin 40 MG as directed Active Furosemide 80 MG as directed A ctive Atenolol 25 MG as directed Act ana Desonide 0.05 % as directed Ac tive Famotidine 20 MG as directed A ctive Omeprazole 20 MG as directed A ctive Flonase Not-Taking Albuterol Sulfate 108 (90 Base) MCG/ACT 1 puff as needed Active Aspirin 81 81 MG 1 tablet Act ana Immunizations Vaccine Route Administration Date Status Comme nts Influenza Unknown 01/29/2024 Administered Social History Tobacco Use: Social History Observation [...] atherosclerosis of arteries of lower limbs (disorder) (97540377960698132 ) Unspecified atherosclerosis of [place] arteries of extremities, bilateral legs (I70.203) Active confirmed Problem Lymphedema (83117467) Lymphedema (I89.0) Active confirmed Problem Bilateral atherosclerosis of arteries of lower limbs (disorder) (06002822670048724 ) Atherosclerosis of [place] artery of both lower extremities, with unspecified presence of clinical manifestation (I70.203) Active confirmed Q7(A), Q8(2B), Q9(1B,2 C) Vital Signs Blood pressure diastolic 60 mm Hg 09/29/2024 Height 5 ft 10 in in 09/29/2024 Blood pressure systolic 135 mm Hg 09/29/2024 Weight 265 lbs 09/29/2024 BMI 38.02 kg/m2 09/29/2024 Procedures Procedure Date Ordered Date Performed Result Body Sit e 30743-ZEITAVS NAIL, 6 OR MORE 03/13/2024 N/A 19673-FZMI SKIN LESIONS, 2 TO 4 03/13/2024 N/A Encounters Encounter Location Date Provider Diagnosis [address] [address] 03/13/2024 Diana Kat Ingrown nail L60.0 ; Pain in right toe(s) M79.674 ; Tinea unguium B35.1 ; Pain in left toe(s) M79.675 and Unspecified atherosclerosis of [place] arteries of extremities, bilateral legs I70.[address] [address] 06/12/2024 Lucy Higginbotham Atherosclerosis of [place] artery of both lower extremities, with unspecified presence of clinical manifestation I70.203 ; Tinea unguium B35.1 ; Pain in right toe(s) M79.674 and Pain in left toe(s) M79.[address] [place] [address] 09/29/2024 Diana Kat Atherosclerosis of [place] artery of both lower extremities, with unspecified presence of clinical manifestation I70.203 ; Tinea unguium B35.1 ; Pain in right toe(s) M79.674 and Pain in left toe(s) M79.675 [facility] [address] [address] 12/01/2024 Diana Kat Atherosclerosis of [place] artery of both lower extremities, with unspecified presence of clinical manifestation I70.203 ; Tinea unguium B35.1 ; Pain in right toe(s) M79.674 and Pain in left toe(s) M79.675 Assessments Encounter Date Diagnosis (ICD Code) Assessment Notes Treatment Notes Treatment Clinical Notes Section Notes 03/13/2024 Ingrown nail (ICD-10 - L60.0) 06/12/2024 Atherosclerosis of anvik artery of both lower extremities, with unspecified presence of clinical manifestation (ICD-10 - I70.203) Q7(A), Q8(2B), Q9(1B,2C) 09/29/2024 Atherosclerosis of an[place] artery of both lower extremities, with unspecified presence of clinical manifestation (ICD-10 - I70.203) Q7(A), Q8(2B), Q9(1B,2C) 12/01/2024 Atherosclerosis of anvik artery of both lower extremities, with unspecified presence of clinical manifestation (ICD-10 - I70.203) Q7(A), Q8(2B), Q9(1B,2C) 12/01/2024 Tinea unguium (ICD-10 - B35.1) 09/29/2024 Tinea unguium (ICD-10 - B35.1) 06/12/2024 Tinea unguium (ICD-10 - B35.1) 03/13/2024 Pain in right toe(s) (ICD-10 - M79.674) 03/13/2024 Pain in left toe(s) (ICD-10 - M79.675) 03/13/2024 Tinea unguium (ICD-10 - B35.1) 06/12/2024 Pain in right toe(s) (ICD-10 - M79.674) 09/29/2024 Pain in right toe(s) (ICD-10 - M79.674) 12/01/2024 Pain in right toe(s) (ICD-10 - M79.674) 09/29/2024 Pain in left toe(s) (ICD-10 - M79.675) 12/01/2024 Pain in left toe(s) (ICD-10 - M79.675) 06/12/2024 Pain in left toe(s) (ICD-10 - M79.675) 03/13/2024 Unspecified atherosclerosis of anvik arteries of extremities, bilateral legs (ICD-10 - I70.203) Plan Of Treatment Pending Test Test Name Order Date 10432-ZLMIHAQ NAIL, 6 OR MORE 03/13/2024 44433-AZTK SKIN LESIONS, 2 TO 4 06/27/19 84500-NVTQ SKIN LESIONS, 2 TO 4 09/20/19 82623-JNRZ SKIN LESIONS, 2 TO 4 03/13/20 Next Appt Details Provider Name:Diana Valdes alexandria, 03/02/2025 09:00:00 AM, [address] [place], [address], Insurance Providers Payer Name Payer Address Payer Phone Subscriber Number Group Number Insured Name Patient Relationship to Insured Coverage Start Date Coverage End Date Medicare National Govt Svcs Inc [address] [facility] [place] [address] [id number] Josiah Torres Self - patient is the insured [facility] ([facility]) [address] [place] [address] [id number] Josiah Torres Self - patient is the insured Medical (General) History Medical History History ICD Code Arthritis asthma Broken bones Cancer Cataracts covid-19 Heart disease High blood pressure Warts Measles Mumps Chicken pox Surgical History Surgery Date(Month/Year) Hospitalization History Reason Date(Month/Year) [facility], ER, broken arm 08/16/23
== END 2025-01-06 12:52 | disposition home or self-care (01) ==
PROVIDERS: PCP Internal Medicine; Visit Provider Physician Assistant Medical
DX: R21 Rash and other nonspecific skin eruption (principal)

== ENCOUNTER → 2025-01-06 12:18 | Outpatient (BNVA) | payer MEDICARE, OTHER, SELFPAY | PROVIDERS: PCP Internal Medicine; Visit Provider Physician Assistant Medical | DX: R21 Rash and other nonspecific skin eruption (principal) | CPT/HCPCS: 99212 ==

== ENCOUNTER 2025-03-03 13:34 | Outpatient (REF) | payer SELFPAY ==
--- OUTSIDE RECORDS SUMMARY | 2024-06-11 07:30 | XMS_ITS ---
Author Organization [facility] Address [address] [place] [address] Care Team Providers Care Chain Saw Operator Name Role Phone Maegan DUNHAM, Claudia Jha Primary Care Provider Unav rolacarl Diana Kat Unavailable [phone] Mcknight Encounters Encounter Location Date Provider Diagnosis [address] [address] 06/11/2024 Diana Kat Plan Of Treatment Next Appt Details Provider Name:Diana Lucio ibrahim, 06/11/2025 11:00:00 AM, [address] [place] [address], [phone], Progress Notes * Josiah CALLAHAN DOB:1945 (79 yo M)Acc No.[id number]:06/11/2024 Progress Note Patient: Michael SUZANNE Josiah Rodriguez Provider: David Kat DPM :1945 A ge:79 Y S ex:Male Date:06/11/2024 Address:[address] [place] [address] Pcp:Claudia Issa MD Subjective: * Chief Complaints: [...] 06/11/2024 Generated for Latrice smith/Mera/Princess on: 1 05/03/2024 04:37 PM EST
--- OUTSIDE RECORDS SUMMARY | 2025-03-02 04:00 | XMS_ITS ---
Author Organization [facility] Address [address] [place] [address] Care Team Providers Care Quarter Backer Name Role Phone Maegan DUNHAM, Claudia Jha Primary Care Provider Unav rolacarl Diana Kat Unavailable [phone] Mcknight Encounters Encounter Location Date Provider Diagnosis [address] [address] 03/02/2025 Diana Kat Plan Of Treatment Next Appt Details Provider Name:Diana uLcio ibrahim, 06/11/2025 11:00:00 AM, [address] [place] [address], [address], Progress Notes * Josiah CALLAHAN DOB:1945 (79 yo M)Acc No.[id number]:03/02/2025 Progress Note Patient: Michael SUZANNE Josiah Rodriguez Provider: David Kat DPM :1945 A ge:79 Y S ex:Male Date:03/02/2025 Address:[address] [place] [address] Pcp:Claudia Issa MD Subjective: * Chief Complaints: [...] Date: 05/02/2024 Generated for Latrice smith/Mera/Princess on: 05/03/2024 04:37 PM EST
--- OUTSIDE RECORDS SUMMARY | 2025-03-02 09:15 | XMS_ITS ---
Author [facility] [place] Address [address] [place] [address] Care Team Providers Care Student Activities Director Name Role Phone Maegan DUNHAM, Claudia Jha Primary Care Provider Diana Noel Unavailable [phone] Allergies Allergen (clinical drug ingredient) Drug/Non Drug [...] 025 Encounters Encounter Location Date Provider Diagnosis [facility] [address] [address] 03/02/2025 Diana Kat Atherosclerosis of [place] artery of both lower extremities, with unspecified presence of clinical manifestation I70.203 ; Tinea unguium B35.1 ; Pain in right toe(s) M79.674 and Pain in left toe(s) M79.675 Assessments Encounter Date Diagnosis (ICD Code) Assessment Notes Treatment Notes Treatment Clinical Notes Section Notes 03/02/2025 Atherosclerosis of [place] artery of both lower extremities, with unspecified presence of clinical manifestation (ICD-10 - I70.203) Q7(A), Q8(2B), Q9(1B,2C) 03/02/2025 Tinea unguium (ICD-10 - B35.1) 03/02/2025 Pain in right toe(s) (ICD-10 - M79.674) 03/02/2025 Pain in left toe(s) (ICD-10 - M79.675) Plan Of Treatment Next Appt Details Follow Up: 3 Months, Reason: Provider Name:Diana Kayejett alexandria, 06/11/2025 11:00:00 AM, [address] [place] [address], [phone], Procedure Notes * Category Sub-Category Detail Notes [...] use of a nail nipper and/or dremel-type concrete grinder operator, to a more viable healthy [...] to maintain effectiveness in symptomatic relief - 00314 Keratoma Treatment Parring or Cutting o f [...] instrumentation by the physician of record - 63517 Progress Notes * Josiah CALLAHAN JrDOB:1945 (79 yo M)Acc No.[id number]:03/02/2025 Progress Note Patient: Michael Josiah PALACIOS Provider: David Kat DPM :1945 A ge:79 Y S ex:Male Date:03/02/2025 Address:[address] [place] [address], [id number] Pcp:Claudia Issa MD Subjective: * Chief Complaints: [...] enies. C ardiovascular: Pacemaker d enies. M VISE HAND d enies. W PW d enies. C [...] yes, walking. Marital status: . 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 D rug/Alcohol: A TEREZA-C (Standard) D id [...] Assessment: * Assessment: 1. A therosclerosis of [place] artery of both lower extremities, with unspecified [...] of a nail nipper and/or dremel- type concrete grinder operator, to a more viable healthy [...] to maintain effectiveness in symptomatic relief - 93369. K eratoma Treatment: Parring or Cutting of [...] instrumentation by the physician of record - 14468. * Procedure Codes: 1 1721 DEBRIDE NAIL, 6 OR MORE, Modifiers: XS 62722 TRIM SKIN LESIONS, 2 TO 4, Modifiers: XS , Q8 * Follow Up: 3 Months * Images: * Sign off status: Completed true * Provider: David Kat DPM Date: 05/02/2024 Generated for Latrice smith/Mera/Princess on: 05/03/2024 04:37 PM EST History and Physical Notes * [...]
--- OUTSIDE RECORDS SUMMARY | 2025-03-03 16:37 | XMS_ITS | Clinical Summary ---
Author Organization [facility] Address [address] [place] [address] Phone Care Team Providers Care Hypoid Gear Generator Name Role Phone Claudia Issa MD Primary Care Provider [phone] Allergies Active Allergy Reactions Criticality Noted Date [...] hearing loss 06/08/2023 Overview (02/05/2024): Testing in [facility] 05/15/2023. Report scan Stage 3a chronic kidney disease ([facility] V24, [facility] V28) 05/01/2023 Assessment & Plan (03/17/2024 12:19 PM EST): Follows with neprhology. Will avoid NSAIDs and stay well hydrated. Prediabetes 09/07/2021 Assessment & Plan (03/17/2024 12:19 PM EST): Will follow A1c. Orders: Basic metabolic panel; Future Hemoglobin A1c; Future Leg edema 03/22/2021 Prostate cancer ([facility] V24, [facility] V28) 07/01 Overview (02/05/2024): Being followed by Dr. Farrar in [facility] HTN (hypertension) 11/27/2012 Assessment & Plan (03/17/2024 12:19 PM EST): HTN well controlled. Continue imdur, atenolol, lasix. Will follow lytes/renal function. Orders: Basic metabolic panel; Future Hemoglobin A1c; Future Morbid obesity ([facility] V24, [facility] V28) 2010 Assessment & Plan (03/17/2024 12:19 PM EST): Efforts towards weight loss encouraged. 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 Overview (02/05/2024): excess in past Encounters Date Type Department Care Team Description 01/26/2025 9:00 AM EDT Office Visit Adult Medicine [address] [id number] Claudia Issa MD Prediabetes (Primary Dx); Prostate cancer (CMS/HCC V24, CMS/HCC V28); Other hyperlipidemia; Coronary artery disease involving kiana coronary artery of kiana heart without angina pectoris; Arthritis from Last 3 Months Immunizations Immunization Administration Dates Next Due COVID-19 ([employer]/Comirnaty) 12yo and older 03/06/2023 Influenza trivalent, 0.5mL ( Fluzone High-dose) 65yo and older 01/14/2025,01/17/2023,01/05/2022,02/01,01/13/2018,01/14/2017,01/16/2016 ,01/10/2015 Influenza trivalent, with pr eservative (Fluzone; Afluria) 6mo and older 02/01/2014,01/07/2013,01/18/2012,01/22,02/03/2010,01/17/2009,02/04/2008 ,02/14/2007,04/02/2006,03/06/2005 Pneumococcal conjugate 13 va lent (Prevnar 13, PCV13) 2mo and older 02/01/2019 Pneumococcal polysaccharide 23 valent (Pneumovax 23) 2yo and older 12/21/2009,02/28/2000 RSV, bivalent, protein subun it RSVpreF, 0.5mL, Preservative Free (Arexvy) 50yo and older 05/15/2023 Td Tetanus diptheria (Tdvax) 7yo and older 10/14/2008 Tdap Tetanus diptheria acell ular pertussis (Boostrix; Adacel) 7yo and older 02/27/2017 Zoster Live 07/31/2012 Surgical History Surgery Date Site/Laterality Comments OTHER SURGICAL HISTORY 076970 PROCEDURE: NUCLEAR STRESS TEST OTHER SURGICAL HISTORY PROCEDURE: DENIES PREVIOUS SURGERY COLONOSCOPY 886286 PROCEDURE: MI COLONOSCOPY STOMA DX INCLUDING COLLJ SPEC SPX; COMMENT: June 2000, next due 07/06/10 COLONOSCOPY W/ BIOPSIES 10/14/10 Humera PROCEDURE: MI COLONOSCOPY STOMA W/BIOPSY SINGLE/MULTIPLE; COMMENT: adenoma and tics; repeat in three years COLONOSCOPY 01/15/14 PROCEDURE: MI COLONOSCOPY STOMA DX INCLUDING COLLJ SPEC SPX; COMMENT: tics; repeat in 5 yrs Medical History Medical History Date Comments Obesity, unspecified DX:Obesity, unspecified Coronary atherosclerosis of kiana coronary artery DX:Coronary atherosclerosis of kiana coronary artery Pure hypercholesterolemia DX:Pur e hypercholesterolemia [...] Date Smoking Tobacco: Former Smokeless Tobacco: Never Tobacco Cessation:Counseling Given: Not Answered Alcohol Use Standard Drinks/Week Comments Yes 1 (1 standard drink = 0.6 oz pur e alcohol) Sex and Gender Information Value Date Recorded Sex Assigned at Male 06/17/2024 11:32 AM EST Legal Sex Male 9:28 AM EST Gender Identity Male 06/17/2024 11:32 AM EST Sexual Orientation Not on file Obstetrics History Last Filed Vital Signs Vital Sign Reading Time Taken Comments Blood Pressure 124/53 01/26/2025 8:58 AM EDT Pulse 60 01/26/2025 8:58 AM EDT Temperature 36.6 C (97.8 F) 01/26/2025 8:58 AM EDT Respiratory Rate 16 01/26/2025 8:58 AM EDT Oxygen Saturation 98% 08/11/2024 3:21 PM EDT Inhaled Oxygen Concentration - - Weight 122 kg (268 lb) 01/26/2025 8:58 AM EDT Height 177.8 cm (5' 10 ) 01/26/2025 8:58 AM EDT Body Mass Index 38.45 01/26/2025 8:58 AM EDT Plan of Treatment Upcoming Encounters Date Type Department Care Team (Late st Contact Info) Description 05/28/2025 8:30 AM EST Office Visit [facility] [place] [address] [place] [address] Claudia Issa MD [address], [place] 06/24/2025 1:15 PM EST Office Visit Nephrology - [place] [address], [place] [phone] Amarjit Neff MD [address] [place] [address] Health Maintenance Due Date Last Done Comments Hepatitis A Vaccines (1 of 2 - Risk 2-dose series) 1964 Colorectal Cancer Screening: Colonoscopy 01/15/2019 01/15/2014 Social Influencers of Health Screening 04/02/2022 Falls Risk Assessment 03/29/2024 03/29/2023 Depression Screening 04/30/2024 07/16/2023 Medicare Annual Wellness Visit 07/15/2024 07/16/2023 Zoster Vaccines (2 of 2) 08/11/2024 06/16/2024, 04/06/2012 COVID-19 Vaccine (7 - Pfizer risk 2023- season) 2024 03/12/2024, 03/06/2023, 03/13/2022, Additional history exists Hypertension/CHF/CAD Annual BMP Blood Test 07/18/2025 07/18/2024, 03/17/2024, 11/09/2023, Additional history exists DTaP,Tdap,and Td Vaccines (3 - Td or Tdap) 02/27/2027 02/27/2017, 10/14/2008 Cholesterol Screening (Lipid Panel) 11/08/2028 11/09/2023, 11/09/2023 Pneumococcal Vaccine: 50+ Years Completed 02/01/2019, 12/21/2009, 02/28/2000 RSV Immunization Adult Patients Completed 05/15/2023 Influenza Vaccine Completed 01/14/2025, , 01/17/2023, Additional history exists HIB Vaccines Aged Out [...] LAB CHEMISTRY METHOD 07/18/2024 6:01 PM EDT [facility] Potassium 4.0 3.5 - 5.5 mmol/L LAB CHEMISTRY METHOD 07/18/2024 6:01 PM EDT [facility] Chloride 100 96 - 110 mmol/L LAB CHEMISTRY METHOD 07/18/2024 6:01 PM EDT [facility] CO2 32 21 - 32 mmol/L LAB CHEMISTRY METHOD 07/18/2024 6:01 PM EDT [facility] Anion Gap 6 3 - 11 LAB CHEMISTRY METHOD 07/18/2024 6:01 PM T [facility] Glucose 143(H) 70 - 100 mg/dL LAB CHEMISTRY METHOD 07/18/2024 6:01 PM [facility] BUN 19 5 - 25 mg/dL LAB CHEMISTRY METHOD 07/18/2024 6:01 PM [facility] Creatinine 1.28 0.70 - 1.30 mg/dL LAB CHEMISTRY METHOD 07/18/2024 6:01 PM [facility] eGFR 56(L) >=60 mL/min/1. 73m2 LAB CHEMISTRY METHOD 07/18/2024 6:01 PM [facility] Comment:Calculation based on the Chronic Kidney Disease Epidemiology Collaboration (CKD-EPI) equation refit without adjustment for race. BUN/Creatinine Ratio 14.8 LAB CHEMISTRY METHOD 07/18/2024 6:01 PM [facility] Calcium 9.3 8.5 - 10.5 mg/dL LAB CHEMISTRY METHOD 07/18/2024 6:01 PM [facility] Blood Venous blood specimen / Unknown Venipuncture / Unknown 07/18/2024 1:38 PM EDT 07/18/2024 1:38 PM EDT us Jonas Murcia CRUISE CONSULTANT LAB BLOOD ORDERABLES Final R esult [facility] [address] [place] [address], * Lipid panel (11/09/2023) LDL/HDL Ratio 2 0 - 4 Triglycerides 136 0 - 150 mg/dL Cholesterol 140 0 - 200 mg/dL HDL 68 >=40 mg/dL LDL Cholesterol 45 0 - 100 mg/dL Blood Venous blood specimen / Unknown Historical Provider LAB BLOOD ORDERABLES Mesha l Result * Depression Screening (07/16/2023) Depression Screening abstracted Historical Provider HEALTH MAINTENANCE Final Result * Falls Risk Assessment (03/29/2023) Pathologist [facility] Falls Risk Assessment abstracted Historical Provider HEALTH MAINTENANCE Final Result * Colonoscopy (01/15/2014) Colonoscopy no interpretation , abstracted Anatomical Region Laterality Modality Other Historical Provider HEALTH MAINTENANCE Final Result from Last 3 Months or Most Recently Relevant to Health Maintenance [place] [address] MEDICARE [facility] MEDICARE [facility] Care Teams Hypoid Gear Generator Relationship Specialty Start Date End Date Claudia Issa MD [address] [place] [address] PCP - General Internal Medicine 12/01/14
--- OUTSIDE RECORDS SUMMARY | 2025-03-03 16:37 | XMS_ITS | Patient Health Record ---
Author Organization [facility] vane [place] Address [address] [facility] [place] [address] Care Team Providers Care Cyanide Pot Tender Name Role Phone Maegan DUNHAM, Claudia Jha Primary Care Provider Mayte guerrero Diana Kat Unavailable [phone] Lucy Higginbotham Unavailable [phone] Allergies Allergen (clinical drug ingredient) Drug/Non Drug Allergy documented on EMR Reaction Allergy Type Onset Date Status Iodine nausea and vomiting Drug Allergy Active Adhesive rash Allergy Active Reason For Referral No Information Medications Medication SIG (Take, Route, Frequency, Duration) Notes Start Date End Date Status Famotidine 20 MG as directed A ctive Simvastatin 40 MG as directed Active Albuterol Sulfate 108 (90 Base) MCG/ACT 1 puff as needed Active Omeprazole 20 MG as directed A ctive Flonase Not-Taking Isosorbide Mononitrate Active Furosemide 80 MG as directed A ctive Nitroglycerin Active Ketoconazole 2 % as directed A ctive Aspirin 81 81 MG 1 tablet Act ana Desonide 0.05 % as directed Ac tive Atenolol 25 MG as directed Act ana Immunizations Vaccine Route Administration Date Status Comme nts Influenza Unknown 01/29/2024 Administered Influenza Unknown 01/30/2025 Administered Social History Tobacco Use: Social History [...] atherosclerosis of arteries of lower limbs (disorder) (82524239890611043 ) Unspecified atherosclerosis of marsh[place] arteries of extremities, bilateral legs (I70.203) Active confirmed Problem Lymphedema (58886623) Lymphedema (I89.0) Active confirmed Problem Bilateral atherosclerosis of arteries of lower limbs (disorder) (64021313158833425 ) Atherosclerosis of marshall artery of both lower extremities, with unspecified presence of clinical manifestation (I70.203) Active confirmed Q7(A), Q8(2B), Q9(1B,2 C) Vital Signs Blood pressure diastolic 60 mm Hg 03/02/2025 Height 5 ft 10 in in 03/02/2025 Blood pressure systolic 135 mm Hg 03/02/2025 Weight 265 lbs 03/02/2025 BMI 38.02 kg/m2 03/02/2025 Procedures Procedure Date Ordered Date Performed Result Body Sit e 60843-DYHPSHY NAIL, 6 OR MORE 03/13/2024 N/A 04353-WHGY SKIN LESIONS, 2 TO 4 03/13/2024 N/A Encounters Encounter Location Date Provider Diagnosis [address] [address] 03/13/2024 Diana Kat Ingrown nail L60.0 ; Pain in right toe(s) M79.674 ; Tinea unguium B35.1 ; Pain in left toe(s) M79.675 and Unspecified atherosclerosis of marshall arteries of extremities, bilateral legs I70.[address] [address] 06/12/2024 Lucy Higginbotham Atherosclerosis of marshall artery of both lower extremities, with unspecified presence of clinical manifestation I70.203 ; Tinea unguium B35.1 ; Pain in right toe(s) M79.674 and Pain in left toe(s) M79.[address] [place] [address] 09/29/2024 Diana Kat Atherosclerosis of marshall artery of both lower extremities, with unspecified presence of clinical manifestation I70.203 ; Tinea unguium B35.1 ; Pain in right toe(s) M79.674 and Pain in left toe(s) M79.[address] [address] 12/01/2024 Diana Kat Atherosclerosis of marshall artery of both lower extremities, with unspecified presence of clinical manifestation I70.203 ; Tinea unguium B35.1 ; Pain in right toe(s) M79.674 and Pain in left toe(s) M79.[address] [facility] [address] 03/02/2025 Diana Kat Atherosclerosis of marshall artery of both lower extremities, with unspecified presence of clinical manifestation I70.203 ; Tinea unguium B35.1 ; Pain in right toe(s) M79.674 and Pain in left toe(s) M79.675 Assessments Encounter Date Diagnosis (ICD Code) Assessment Notes Treatment Notes Treatment Clinical Notes Section Notes 03/13/2024 Ingrown nail (ICD-10 - L60.0) 06/12/2024 Atherosclerosis of marshall artery of both lower extremities, with unspecified presence of clinical manifestation (ICD-10 - I70.203) Q7(A), Q8(2B), Q9(1B,2C) 09/29/2024 Atherosclerosis of marshall artery of both lower extremities, with unspecified presence of clinical manifestation (ICD-10 - I70.203) Q7(A), Q8(2B), Q9(1B,2C) 12/01/2024 Atherosclerosis of marshall artery of both lower extremities, with unspecified presence of clinical manifestation (ICD-10 - I70.203) Q7(A), Q8(2B), Q9(1B,2C) 03/02/2025 Atherosclerosis of marshall artery of both lower extremities, with unspecified presence of clinical manifestation (ICD-10 - I70.203) Q7(A), Q8(2B), Q9(1B,2C) 03/02/2025 Tinea unguium (ICD-10 - B35.1) 12/01/2024 Tinea unguium (ICD-10 - B35.1) 09/29/2024 [...] toe(s) (ICD-10 - M79.674) 03/02/2025 Pain in right toe(s) (ICD-10 - M79.674) 03/02/2025 Pain in left toe(s) (ICD-10 - M79.675) 09/29/2024 Pain in left toe(s) (ICD-10 - M79.675) 12/01/2024 Pain in left toe(s) (ICD-10 - M79.675) 06/12/2024 Pain in left toe(s) (ICD-10 - M79.675) 03/13/2024 Unspecified atherosclerosis of marshall arteries of extremities, bilateral legs (ICD-10 - I70.203) Plan Of Treatment Pending Test Test Name Order Date 79674-KQZQKMN NAIL, 6 OR MORE 03/13/2024 11715-KSNW SKIN LESIONS, 2 TO 4 06/27/19 08584-UXLM SKIN LESIONS, 2 TO 4 09/20/19 85599-QAFT SKIN LESIONS, 2 TO 4 03/13/20 Next Appt Details Provider Name:Diana Lucio ibrahim, 06/11/2025 11:00:00 AM, [address] [place] [address], [place], [address], Insurance Providers Payer Name Payer Address Payer Phone Subscriber Number Group Number Insured Name Patient Relationship to Insured Coverage Start Date Coverage End Date Medicare National Govt [employer] [address] [place] [address] [id number] Josiah Torres Self - patient is the insured [email or web address] [address] [place] [address] [phone] [id number] Josiah Torres Self - patient is the insured Medical (General) History Medical History History ICD Code Arthritis asthma Broken bones Cancer Cataracts covid-19 Heart disease High blood pressure Warts Measles Mumps Chicken pox Surgical History Surgery Date(Month/Year) Hospitalization History Reason Date(Month/Year) [facility], ER, broken arm 08/16/23
== END 2025-03-03 13:35 | disposition home or self-care (01) ==
LOC: HO.HAP 13:34
PROVIDERS: Visit Provider Internal Medicine
DX: Z13.89 Encounter for screening for other disorder (principal)

== ENCOUNTER 2025-03-04 11:44 | Outpatient (REF) | payer SELFPAY ==
--- OUTSIDE RECORDS SUMMARY | 2024-06-11 07:30 | XMS_ITS ---
Author Organization [facility] Address [address] [place] [address] Care Team Providers Care Control Systems Specialist Name Role Phone Maegan DUNHAM, Claudia Jha Primary Care Provider Unav rolacarl Diana Kat Unavailable [phone] Mcknight Encounters Encounter Location Date Provider Diagnosis [address] [address] 06/11/2024 Diana Kat Plan Of Treatment Next Appt Details Provider Name:Diana Lucio ibrahim, 06/11/2025 11:00:00 AM, [address] [place] [address], [phone], Progress Notes * Josiah CALLAHAN DOB:1945 (79 yo M)Acc No.[id number]:06/11/2024 Progress Note Patient: Michael SUZANNE Josiah Rodriguez Provider: David Kat DPM :1945 A ge:79 Y S ex:Male Date:06/11/2024 Address:[address] [place] [address] Pcp:Claudia Issa MD Subjective: * Chief Complaints: [...] 06/11/2024 Generated for Latrice smith/Mera/Princess on: 1 05/04/2024 02:25 PM EST
--- OUTSIDE RECORDS SUMMARY | 2025-03-02 04:00 | XMS_ITS ---
Author Organization [facility] Address [address] [place] [address] Care Team Providers Care Pipelaying Fitter Name Role Phone Maegan DUNHAM, Claudia Jha Primary Care Provider Unav rolacarl Diana Kat Unavailable [phone] Mcknight Encounters Encounter Location Date Provider Diagnosis [address] [address] 03/02/2025 Diana Kat Plan Of Treatment Next Appt Details Provider Name:Diana Lucio ibrahim, 06/11/2025 11:00:00 AM, [address] [place] [address], [phone], Progress Notes * Josiah CALLAHAN DOB:1945 (79 yo M)Acc No.[id number]:03/02/2025 Progress Note Patient: Michael SUZANNE Josiah Rodriguez Provider: David Kat DPM :1945 A ge:79 Y S ex:Male Date:03/02/2025 Address:[address] [place] [address] Pcp:Claudia Issa MD Subjective: * Chief Complaints: [...] Date: 05/02/2024 Generated for Latrice smith/Mera/Princess on: 05/04/2024 02:25 PM EST
--- OUTSIDE RECORDS SUMMARY | 2025-03-02 09:15 | XMS_ITS ---
Author Organization [facility] Address [address] [place] [address] Care Team Providers Care Fleet Mechanic Name Role Phone Maegan DUNHAM, Claudia Jha Primary Care Provider Diana Noel Unavailable [phone] Allergies Allergen (clinical drug ingredient) Drug/Non Drug Allergy documented on EMR Reaction Allergy Type Onset Date Status Iodine nausea and vomiting Drug Allergy Active Adhesive rash Allergy Active REASON FOR VISIT At Risk Footcare, Painful Nail(s) aggravated by shoes and causing difficulty standing/walking. Medications Medication SIG (Take, Route, Frequency, Duration) Notes Start Date End Date Status Albuterol Sulfate 108 (90 Base) MCG/ACT 1 puff as needed Active Flonase Not-Taking Aspirin 81 81 MG 1 tablet Act ana Desonide 0.05 % as directed Ac tive Atenolol 25 MG as directed Act ana Simvastatin 40 MG as directed Active Isosorbide Mononitrate Active Furosemide 80 MG as directed A ctive Nitroglycerin Active Ketoconazole 2 % as directed A ctive Famotidine 20 MG as directed A ctive Omeprazole 20 MG as directed A ctive Social [...] monthly (1 point) Points 2 Interpretation Negative Vital Signs Height 5 ft 10 in in 03/02/2025 Weight 265 lbs 03/02/2025 BMI 38.02 kg/m2 03/02/2025 Blood pressure systolic 135 mm Hg 03/02/20 25 Blood pressure diastolic 60 mm Hg 025 Encounters Encounter Location Date Provider Diagnosis [facility] [address] [address] 03/02/2025 Diana Kat 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, with unspecified presence of clinical manifestation I70.203 ; Tinea unguium B35.1 ; Pain in right toe(s) M79.674 and Pain in left toe(s) M79.675 Assessments Encounter Date Diagnosis (ICD Code) Assessment Notes Treatment Notes Treatment Clinical Notes Section Notes 03/02/2025 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, with unspecified presence of clinical manifestation (ICD-10 - I70.203) Q7(A), Q8(2B), Q9(1B,2C) 03/02/2025 Tinea unguium (ICD-10 - B35.1) 03/02/2025 Pain in right toe(s) (ICD-10 - M79.674) 03/02/2025 Pain in left toe(s) (ICD-10 - M79.675) Plan Of Treatment Next Appt Details Follow Up: 3 Months, Reason: Provider Name:Diana Kayejett alexandria, 06/11/2025 11:00:00 AM, [address] [place] [address], [phone], Procedure Notes * Category Sub-Category Detail Notes [...] use of a nail nipper and/or dremel-type jewel bearing grinder, to a more viable healthy nail [...] to maintain effectiveness in symptomatic relief - 57421 Keratoma Treatment Parring or Cutting o f [...] instrumentation by the physician of record - 45170 Progress Notes * Josiah CALLAHAN JrDOB:1945 (79 yo M)Acc No.[id number]:03/02/2025 Progress Note Patient: Michael Josiah PALACIOS Provider: David Kat DPM :1945 A ge:79 Y S ex:Male Date:03/02/2025 Address:[address] [place] [address], [place] Pcp:Claudia Issa MD Subjective: * Chief Complaints: * A t Risk FootcarePainful Nail(s) aggravated by shoes and causing difficulty standing/walking. * HPI: A t Risk footcare: Pt States Last PCP Visit: D ate 0 01/21/2025 * ROS: G eneral/Constitutional: Nausea d enies. V omiting d enies. H neli Thirst d enies. L oss appetite d enies. C hills d enies. F atigue d enies.?Fever d enies. N ight Sweats d enies. U nexplained weight loss d enies. U nexplained weight gain d enies. H EENTM: Dentures d enies. D izziness d enies. G lasses/contacts d enies. R etinopathy d enies. B lurred/double vision d enies. T MJ?denies. D ischarge/drainage d enies. I mplants d enies. S ore throat d enies. D ental implants d enies. H anette of hearing d enies. D ifficulty chewing/swallowing/speaking d enies. N ose bleeds d enies. S ore mouth d enies. ? R espiratory: On Oxygen d enies. P neumonia/pleurisy d enies.?Bronchitis d enies. E mphysema d enies. C oughing d enies. C ough blood?denies. S hortness of breath d enies. W heezing d enies. C ardiovascular: Pacemaker d enies. M NET MAKER d enies. W PW d enies. C HF d enies. H eart attack d enies. S eptal defect d enies. R apid beat d enies. C hest pain d enies. A trial Fib. d enies. M urmur/Palpitations d enies. G astrointestinal: Hemorrhoids d enies. S tomach/Abdominal pain d enies. D ark blood stool d enies. I rritable bowel d enies. C onstipation d enies. D iarrhea d enies. H ematology: Swelling d enies. C lots d enies. V aricose Veins d enies. B ruising d enies. B leeding problem d enies. G enitourinary: Blood urine d enies. F requent/Painfu/urination/bladder control d enies. K idney stones d enies. I nfection (UTI) d enies. N ephropathy d enies. s ex trans dis (STD) d enies. P rostate d enies. M usculoskeletal: Hammertoes d enies. B unions d enies. B ack Pain d enies. M uscle Cramps/ Resting d enies. M uscle cramps / walking d enies.?Generalized aches and pains d enies. W eakness d enies. I nteg.: Philippe d enies. S cars d enies. C orns/calluses?denies. I ngrown nails d enies. P ainful nails d enies. O pen Sores d enies. R ashes d enies. N eurologic: Difficulty sleeping d enies. B rain disorder d enies. N umbness d enies. B alance trouble d enies. C onfusion d enies. F ainting/blackouts d enies. T ingling d enies. T remors d enies. * Medical History: * Surgical History: D enies Past Surgical History * Hospitalization/Major Diagno stic Procedure: [facility], [facility], broken arm 08/16/23 * Family History: M other: , diagnosed with Unspecified essential hypertension. F ather: , diagnosed with Other malignant neoplasm of unspecified site, Diabetic - NIDDM. * Social History: T obacco Use: T obacco use other than smoking A re you an other tobacco user? N o Tobacco Control (Standard) T obacco use: N onsmoker A dditional Findings: Tobacco non-user C urrent nonsmoker D rugs/Alcohol: D rugs H ave you used drugs other than those for medical reasons in the past 12 months? N o M iscellaneous: C affeine: yes, frequency: 4 to 5 cups or 2 cans per day. Children: yes, 3. Exercise: yes, walking. Marital status: . 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 D rug/Alcohol: A TEREZA-C (Standard) D id you have a drink containing alcohol in the past year? Y es H ow often did you have a drink containing alcohol in the past year? M onthly or less (1 point) H ow many drinks did you have on a typical day when you were drinking in the past year? 1 or 2 drinks (0 point) H ow often did you have six or more drinks on one occasion in the past year? L ess than monthly (1 point) P oints 2 I nterpretation N egative * Medications: T akingOmeprazole 20 MG Capsule Delayed Release as directed [...] Powder Breath Activated 1 puff as needed Not-Taking/PRNFlonase Medication List reviewed and reconciled with the patientNot-Taking/PRN Flonase Medication List reviewed and reconciled with the patient * Allergies: A dhesive: rash - AllergyIodine: nausea and vomiting - Allergyyes[Allergies Verified] Objective: * Vitals: H t: 5 ft 10 in, Wt:265, BMI: 38.02, Shoe size:10, BP:135/60mm Hg, Ht-cm: 177.8 cm, Wt-k.2 kg. * Examination: V ascular: DP PULSES (B): 0/4, B/L. PT PULSES (B): 0/4, B/L. CAPILLARY FILL TIME: delayed, all digits, B/L. TROPHIC CONDITION-TEXTURE/ELASTICITY/TURGOR/HAIR GROWTH (B):? decreased, fragile, thin, shiny skin, with sparse to absent hair growth, B/L. TEMPERTURE GRADIENT (C): decreased, cool to cool, proximal to distal, B/L. PIGMENTATION: p ximena, B/L. N ails: NAILS are: Elongated, overgrown, dystrophic, lytic, greater than 3mm thick, discolored and friable with crumbly malodorous subungual debris, with pain on palpation, T A, T1, T2, T3, T4, T5, T6, T7, T8, T9. D ermatologic: SKIN FINDINGS: S kin exam reveals Keratotic lesion(s) located at , TA, T5, Plantar Heel(s), B/L. O rthopedic: MUSCLE STRENGTH: 5 /5 all groups in a symmetrical fashion, B/L. N eurological: SENSORY: N eurological exam reveals intact sensorium, pain sensation normal, vibration sensation intact, pinprick sensation is normal in the lower extremities, Pt denies, anesthesia, burning, paresthesia, tingling, B/L. G eneral Examination: GENERAL APPEARANCE: R karolyneals a pleasant, alert, well nourished, well-developed, well hydrated individual, who demonstrates proper attention to hygiene/body habitus, and is in no acute distress, Pt serves as own historian for office visit today. ORIENTED: p erson, place, and time. Assessment: * Assessment: 1. A therosclerosis of tlingit & haida artery of both lower extremities, with unspecified presence of clinical manifestation - I70.203 (Primary) N otes :Q7(A), Q8(2B), Q9(1B,2C) 2 . T inea unguium - B35.1 3 . P ain in right toe(s) - M79.674 4 . P ain in left toe(s) - M79.675 Plan: * Treatment: * Procedures: D ebride Nail 6-10: Nail debridement D ue to the clinical pathology outlined in the [...] the use of a nail nipper and/or dremel- type jewel bearing grinder, to a more viable healthy nail [...] to maintain effectiveness in symptomatic relief - 48801. K eratoma Treatment: Parring or Cutting of Benign Hyperkeratotic Lesion(s) ( -56) 2-4 Lesions - Due to the at [...] stated and described in the exam ( T A, T 5, P lantar Heel(s), B /L ) , were pared, and/or cut utilizing a sterile 15 blade, tissue nippers, and/or power dremel instrumentation by the physician of record - 86016. * Procedure Codes: 1 1721 DEBRIDE NAIL, 6 OR MORE, Modifiers: XS 12143 TRIM SKIN LESIONS, 2 TO 4, Modifiers: XS , Q8 * Follow Up: 3 Months * Images: * Sign off status: Completed true * Provider: David Kat DPM Date: 05/02/2024 Generated for Latrice smith/Mera/Princess on: 05/04/2024 02:25 PM EST History and Physical Notes * HPI (History of Present Illness) Category Sub-Category Detail Notes Category Not es At Risk footcare Pt States Last PCP Visit: Date: Examination Category Sub-Category Detail Notes Category Not [...]
--- OUTSIDE RECORDS SUMMARY | 2025-03-04 14:26 | XMS_ITS | Clinical Summary ---
Author Organization [facility] Address [address] [place] [address] Phone Care Team Providers Care Vac Press Operator Name Role Phone Claudia Issa MD Primary Care Provider [phone] Allergies Active Allergy Reactions Criticality Noted Date [...] hearing loss 06/08/2023 Overview (02/05/2024): Testing in [facility] 05/15/2023. Report scan Stage 3a chronic kidney disease ([facility] V24, [facility] V28) 05/01/2023 Assessment & Plan (03/17/2024 12:19 PM EST): Follows with neprhology. Will avoid NSAIDs and stay well hydrated. Prediabetes 09/07/2021 Assessment & Plan (03/17/2024 12:19 PM EST): Will follow A1c. Orders: Basic metabolic panel; Future Hemoglobin A1c; Future Leg edema 03/22/2021 Prostate cancer ([facility] V24, [facility] V28) 07/01 Overview (02/05/2024): Being followed by Dr. Farrar in [facility] HTN (hypertension) 11/27/2012 Assessment & Plan (03/17/2024 12:19 PM EST): HTN well controlled. Continue imdur, atenolol, lasix. Will follow lytes/renal function. Orders: Basic metabolic panel; Future Hemoglobin A1c; Future Morbid obesity ([facility] V24, [facility] V28) 2010 Assessment & Plan (03/17/2024 12:19 PM EST): Efforts towards weight loss encouraged. 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 Overview (02/05/2024): excess in past Encounters Date Type Department Care Team Description 01/26/2025 9:00 AM EDT Office Visit Adult Medicine [address] [phone] Claudia Issa MD Prediabetes (Primary Dx); Prostate cancer (CMS/HCC V24, CMS/HCC V28); Other hyperlipidemia; Coronary artery disease involving [place] coronary artery of [place] heart without angina pectoris; Arthritis from Last 3 Months Immunizations Immunization Administration Dates Next Due COVID-19 (One Diary/Comirnaty) 12yo and older 03/06/2023 Influenza trivalent, 0.5mL [...] Surgery Date Site/Laterality Comments OTHER SURGICAL HISTORY 136875 PROCEDURE: NUCLEAR STRESS TEST OTHER SURGICAL HISTORY PROCEDURE: DENIES PREVIOUS SURGERY COLONOSCOPY 561359 PROCEDURE: AR COLONOSCOPY STOMA DX INCLUDING COLLJ SPEC SPX; COMMENT: June 2000, next due 07/06/10 COLONOSCOPY W/ BIOPSIES 10/14/10 [facility] PROCEDURE: AR COLONOSCOPY STOMA W/BIOPSY SINGLE/MULTIPLE; COMMENT: adenoma and tics; repeat in three years COLONOSCOPY 01/15/14 PROCEDURE: AR COLONOSCOPY STOMA DX INCLUDING COLLJ SPEC SPX; COMMENT: tics; repeat in 5 yrs Medical History Medical History Date Comments Obesity, unspecified DX:Obesity, unspecified Coronary atherosclerosis of [place] coronary artery DX:Coronary atherosclerosis of [place] coronary artery Pure hypercholesterolemia DX:Pur e hypercholesterolemia [...] EST Office Visit [facility] [place] [address] [place] [address] Claudia Issa MD [address] [place], [place] 06/24/2025 1:15 PM EST Office Visit Nephrology - [place] [address] [place], [place] [phone] Amarjit Neff MD [address] [place] [address] Health Maintenance Due Date Last [...] LAB CHEMISTRY METHOD 07/18/2024 6:01 PM EDT [facility] Potassium 4.0 3.5 - 5.5 mmol/L LAB CHEMISTRY METHOD 07/18/2024 6:01 PM EDT [facility] Chloride 100 96 - 110 mmol/L LAB CHEMISTRY METHOD 07/18/2024 6:01 PM EDT [facility] CO2 32 21 - 32 mmol/L LAB CHEMISTRY METHOD 07/18/2024 6:01 PM EDT [facility] Anion Gap 6 3 - 11 LAB CHEMISTRY METHOD 07/18/2024 6:01 PM T [facility] Glucose 143(H) 70 - 100 mg/dL LAB CHEMISTRY METHOD 07/18/2024 6:01 PM [facility] BUN 19 5 - 25 mg/dL LAB CHEMISTRY METHOD 07/18/2024 6:01 PM [facility] Creatinine 1.28 0.70 - 1.30 mg/dL LAB CHEMISTRY METHOD 07/18/2024 6:01 PM [facility] eGFR 56(L) >=60 mL/min/1. 73m2 LAB CHEMISTRY METHOD 07/18/2024 6:01 PM [facility] Comment:Calculation based on the Chronic Kidney Disease Epidemiology Collaboration (CKD-EPI) equation refit without adjustment for race. BUN/Creatinine Ratio 14.8 LAB CHEMISTRY METHOD 07/18/2024 6:01 PM [facility] Calcium 9.3 8.5 - 10.5 mg/dL LAB CHEMISTRY METHOD 07/18/2024 6:01 PM [facility] Blood Venous blood specimen / Unknown Venipuncture / Unknown 07/18/2024 1:38 PM EDT 07/18/2024 1:38 PM EDT us Jonas Murcia FOXING PAINTER LAB BLOOD ORDERABLES Final R esult [facility] [address] [place] [address], * Lipid panel (11/09/2023) LDL/HDL Ratio 2 [...] [facility] Falls Risk Assessment abstracted Historical Provider HEALTH MAINTENANCE Final Result * Colonoscopy (01/15/2014) Colonoscopy no interpretation , abstracted Anatomical Region Laterality Modality Other Historical Provider HEALTH MAINTENANCE Final Result from Last 3 Months or Most Recently Relevant to Health Maintenance [place] [id number] MEDICARE [facility] MEDICARE [facility] Care Teams Vac Press Operator Relationship Specialty Start Date End Date Claudia Issa MD [address] [place] [address] PCP - General Internal Medicine 12/01/14
--- OUTSIDE RECORDS SUMMARY | 2025-03-04 14:26 | XMS_ITS | Patient Health Record ---
Author Organization [facility] vane [place] Address [address] [place] [address] Care Team Providers Care Web Weaver Name Role Phone Maegan DUNHAM, Claudia Jha Primary Care Provider Mayte guerrero Diana Kat Unavailable [phone] Lucy Higginbotham Unavailable [phone] Allergies Allergen (clinical drug ingredient) Drug/Non Drug [...] atherosclerosis of arteries of lower limbs (disorder) (93238204564076329 ) Unspecified atherosclerosis of [place] arteries of extremities, bilateral legs (I70.203) Active confirmed Problem Lymphedema (43869929) Lymphedema (I89.0) Active confirmed Problem Bilateral atherosclerosis of arteries of lower limbs (disorder) (20251065952127019 ) Atherosclerosis of [place] artery of both lower extremities, with unspecified presence of clinical manifestation (I70.203) Active confirmed Q7(A), Q8(2B), Q9(1B,2 C) Vital Signs Blood pressure diastolic 60 mm Hg 03/02/2025 Height 5 ft 10 in in 03/02/2025 Blood pressure systolic 135 mm Hg 03/02/2025 Weight 265 lbs 03/02/2025 BMI 38.02 kg/m2 03/02/2025 Procedures Procedure Date Ordered Date Performed Result Body Sit e 10132-RGKTMUM NAIL, 6 OR MORE 03/13/2024 N/A 91677-QUCR SKIN LESIONS, 2 TO 4 03/13/2024 N/A Encounters Encounter Location Date Provider Diagnosis [address] [address] 03/13/2024 Diana Kat Ingrown nail L60.0 ; Pain in right toe(s) M79.674 ; Tinea unguium B35.1 ; Pain in left toe(s) M79.675 and Unspecified atherosclerosis of [place] arteries of extremities, bilateral legs I70.[address] [address] 06/12/2024 Lucy Higginbotham Atherosclerosis of [place] artery of both lower extremities, with unspecified presence of clinical manifestation I70.203 ; Tinea unguium B35.1 ; Pain in right toe(s) M79.674 and Pain in left toe(s) M79.[address] [place] [address] 09/29/2024 Diana Kat Atherosclerosis of [place] artery of both lower extremities, with unspecified presence of clinical manifestation I70.203 ; Tinea unguium B35.1 ; Pain in right toe(s) M79.674 and Pain in left toe(s) M79.[address] [address] 12/01/2024 Diana Kat Atherosclerosis of [place] artery of both lower extremities, with unspecified presence of clinical manifestation I70.203 ; Tinea unguium B35.1 ; Pain in right toe(s) M79.674 and Pain in left toe(s) M79.[address] [facility] [address] 03/02/2025 Diana Kat Atherosclerosis of [place] artery of both lower extremities, with unspecified presence of clinical manifestation I70.203 ; Tinea unguium B35.1 ; Pain in right toe(s) M79.674 and Pain in left toe(s) M79.675 Assessments Encounter Date Diagnosis (ICD Code) Assessment Notes Treatment Notes Treatment Clinical Notes Section Notes 03/13/2024 Ingrown nail (ICD-10 - L60.0) 06/12/2024 Atherosclerosis of [place] artery of both lower extremities, with unspecified presence of clinical manifestation (ICD-10 - I70.203) Q7(A), Q8(2B), Q9(1B,2C) 09/29/2024 Atherosclerosis of [place] artery of both lower extremities, with unspecified presence of clinical manifestation (ICD-10 - I70.203) Q7(A), Q8(2B), Q9(1B,2C) 12/01/2024 Atherosclerosis of [place] artery of both lower extremities, with unspecified presence of clinical manifestation (ICD-10 - I70.203) Q7(A), Q8(2B), Q9(1B,2C) 03/02/2025 Atherosclerosis of [place] artery of both lower extremities, with unspecified [...] (ICD-10 - M79.675) 03/13/2024 Unspecified atherosclerosis of [place] arteries of extremities, bilateral legs (ICD-10 - I70.203) Plan Of Treatment Pending Test Test Name Order Date 73097-[id number] NAIL, 6 OR MORE 03/13/2024 85966-WCQP SKIN LESIONS, 2 TO 4 06/27/19 10206-IPKR SKIN LESIONS, 2 TO 4 09/20/19 00087-EQZV SKIN LESIONS, 2 TO 4 03/13/20 Next Appt Details Provider Name:Diana Lucio ibrahim, 06/11/2025 11:00:00 AM, [address] [place] [address], [place], [address], Insurance Providers Payer Name Payer Address Payer Phone Subscriber Number Group Number Insured Name Patient Relationship to Insured Coverage Start Date Coverage End Date Medicare National Govt [employer] [address] [place] [address] [id number] Josiah Torres Self - patient is the insured [employer] [address] [place] [address] [phone] [id number] Josiah Torres Self - patient is the insured Medical (General) History Medical History History ICD Code Arthritis asthma Broken bones Cancer Cataracts covid-19 Heart disease High blood pressure Warts Measles Mumps Chicken pox Surgical History Surgery Date(Month/Year) Hospitalization History Reason Date(Month/Year) [facility], ER, broken arm 08/16/23
== END 2025-03-04 11:45 | disposition home or self-care (01) ==
LOC: HO.HAP 11:44
PROVIDERS: Visit Provider Internal Medicine
DX: Z46.1 Encounter for fitting and adjustment of hearing aid (principal)
CPT/HCPCS: 92593

== ENCOUNTER 2025-04-21 10:34 | Outpatient (REF) | payer SELFPAY ==
--- OUTSIDE RECORDS SUMMARY | 2024-06-11 07:30 | XMS_ITS ---
Author Organization [facility] Address [address] [place] [address] Care Team Providers Care Heat And Frost Insulator Helper Name Role Phone Maegan DUNHAM, Claudia Jha Primary Care Provider Unav rolacarl Diana Kat Unavailable [phone] Mcknight Encounters Encounter Location Date Provider Diagnosis [address] [address] 06/11/2024 Diana Kat Plan Of Treatment Next Appt Details Provider Name:Diana Lucio ibrahim, 06/11/2025 11:00:00 AM, [address] [place] [address], [phone], Progress Notes * Josiah CALLAHAN DOB:1945 (79 yo M)Acc No.[id number]:06/11/2024 Progress Note Patient: Michael SUZANNE Josiah Rodriguez Provider: David Kat DPM :1945 A ge:79 Y S ex:Male Date:06/11/2024 Address:[address] [place] [address] Pcp:Claudia Issa MD Subjective: * Chief Complaints: * [address] Mcknight. * Medical History: Objective: * Vitals: Assessment: Plan: * Treatment: * Images: * The named appointment provid er may or may not be the originator of this progress note, and it is not deemed complete until electronically signed by the appointment provider. Sign off status: Pending * Provider: David Kat DPM Date: 0 06/11/2024 Generated for Latrice smith/Mera/Princess on: 1 06/22/2024 11:52 AM EST
--- OUTSIDE RECORDS SUMMARY | 2025-03-02 04:00 | XMS_ITS ---
Author Organization [facility] Address [address] [place] [address] Care Team Providers Care Meat Market Manager Name Role Phone Maegan DUNHAM, Claudia Jha Primary Care Provider Unav rolacarl Diana Kat Unavailable [phone] Mcknight Encounters Encounter Location Date Provider Diagnosis [address] [address] 03/02/2025 Diana Kat Plan Of Treatment Next Appt Details Provider Name:Diana Lucio ibrahim, 06/11/2025 11:00:00 AM, [address] [place] [address], [address], Progress Notes * Josiah CALLAHAN DOB:1945 (79 yo M)Acc No.[id number]:03/02/2025 Progress Note Patient: Michael SUZANNE Josiah Rodriguez Provider: David Kat DPM :1945 A ge:79 Y S ex:Male Date:03/02/2025 Address:[address] [place] [address] Pcp:Claudia Issa MD Subjective: * Chief Complaints: [...] Pending * Provider: David Kat DPM Date: 05/02/2024 Generated for Latrice smith/Mera/Princess on: 06/22/2024 11:52 AM EST
--- OUTSIDE RECORDS SUMMARY | 2025-04-21 11:52 | XMS_ITS | Clinical Summary ---
Author Organization [facility] Address [address] [place] [address] Phone Care Team Providers Care Telephone Directory Distributor Driver Name Role Phone Claudia Issa MD Primary Care Provider [phone] Allergies Active Allergy Reactions Criticality Noted Date [...] aspirin 81 mg EC tablet OTC Active furosemide (LASIX) 80 mg tablet TAKE 1/2 TABLET BY MOUTH DAILY 45 tablet 3 5 Active fluticasone furoate (Arnuity Ellipta) 100 mcg/actuation blister with device inhalerIndicatio ns:Chronic cough Inhale1 puff once daily 14 each 11 5 Active albuterol HFA (PROAIR HFA ; PROVENTIL HFA ; VENTOLIN HFA) 90 mcg/actuation inhaler Inhale 2 puffs by mouth 4 (four) times a day if needed for wheezing. 6.7 g 5 Active atenoloL (TENORMIN) 50 mg tablet TAKE 1 TABLET BY MOUTH EVERY DAY 90 tablet 1 5 Active isosorbide mononitrate (IMDUR) 30 mg 24 hr tablet TAKE 1 TABLET BY MOUTH EVERY DAY 90 tablet 1 5 Active simvastatin (ZOCOR) 40 mg tablet TAKE 1 TABLET BY MOUTH EVERYDAY AT BEDTIME 90 tablet 3 5 Active omeprazole (PriLOSEC) [address] capsule TAKE 1 CAPSULE (20MG) BY MOUTH EVERY DAY 90 capsule 1 5 Active Active Problems Problem Noted Date [...] 9:00 AM EDT Office Visit Adult Medicine [address] [phone] Claudia Issa MD Prediabetes (Primary Dx); Prostate cancer ([facility] V24, [facility] V28); Other hyperlipidemia; Coronary artery disease involving [place] coronary artery of [place] heart without angina pectoris; Arthritis from Last 3 Months Immunizations Immunization Administration Dates Next Due COVID-19 (Pfizer/Comirnaty) 10yo [...] Surgery Date Site/Laterality Comments OTHER SURGICAL HISTORY 981078 PROCEDURE: NUCLEAR STRESS TEST OTHER SURGICAL HISTORY PROCEDURE: DENIES PREVIOUS SURGERY COLONOSCOPY 301651 PROCEDURE: NV COLONOSCOPY STOMA DX INCLUDING COLLJ SPEC SPX; COMMENT: June 2000, next due 07/06/10 COLONOSCOPY W/ BIOPSIES 10/14/10 [facility] PROCEDURE: NV COLONOSCOPY STOMA W/BIOPSY SINGLE/MULTIPLE; COMMENT: adenoma and tics; repeat in three years COLONOSCOPY 01/15/14 PROCEDURE: NV COLONOSCOPY STOMA DX INCLUDING COLLJ SPEC SPX; COMMENT: tics; repeat in 5 yrs Medical History Medical History Date Comments Obesity, unspecified DX:Obesity, unspecified Coronary atherosclerosis of [place] coronary artery DX:Coronary atherosclerosis of [place] coronary artery Pure hypercholesterolemia DX:Pur e hypercholesterolemia [...] AM EST Sexual Orientation Not on file Last Filed Vital Signs Vital Sign Reading [...] 8:30 AM EST Office Visit Adult Medicine [address] [phone] Claudia Issa MD [address] [place], [place] 06/24/2025 1:15 PM EST Office Visit Nephrology - [place] [address], [place] [phone] Amarjit Neff MD [address] [place] [address] Health Maintenance Due Date Last Done Comments Hepatitis A Vaccines (1 of 2 - Risk 2-dose series) 1964 Colorectal Cancer Screening: Colonoscopy 01/15/2019 01/15/2014 Social Influencers of Health Screening 04/02/2022 Falls Risk Assessment 03/29/2024 03/29/2023 Depression Screening 04/30/2024 07/16/2023 Medicare Annual Wellness Visit 07/15/2024 07/16/2023 Zoster Vaccines (2 of 2) 08/11/2024 06/16/2024, 06/2012 COVID-19 Vaccine ( season) 2024 03/12/2024, 03/06/2023, 03/13/2022, Additional history [...] mmol/L LAB CHEMISTRY METHOD 07/18/2024 6:01 PM [facility] Potassium 4.0 3.5 - 5.5 mmol/L LAB CHEMISTRY METHOD 07/18/2024 6:01 PM [facility] Chloride 100 96 - 110 mmol/L LAB CHEMISTRY METHOD 07/18/2024 6:01 PM [facility] CO2 32 21 - 32 mmol/L LAB CHEMISTRY METHOD 07/18/2024 6:01 PM [facility] Anion Gap 6 3 - 11 LAB CHEMISTRY METHOD 07/18/2024 6:01 PM [facility] Glucose 143(H) 70 - 100 mg/dL LAB CHEMISTRY METHOD 07/18/2024 6:01 PM EDT [facility] BUN 19 5 - [...] R esult [facility] [address] [place] [address], * Lipid panel (11/09/2023) LDL/HDL Ratio 2 0 - 4 Triglycerides 136 0 - 150 mg/dL Cholesterol 140 0 - 200 mg/dL HDL 68 >=40 mg/dL LDL Cholesterol 45 0 - 100 mg/dL Blood Venous blood specimen / Unknown Historical Provider LAB BLOOD ORDERABLES Mesha l Result * Depression Screening (07/16/2023) Pathologist [facility] Depression Screening abstracted us Historical Provider HEALTH MAINTENANCE Final Result * Falls Risk Assessment (03/29/2023) Falls Risk Assessment abstracted Historical Provider HEALTH MAINTENANCE Final Result * Colonoscopy (01/15/2014) Colonoscopy no interpretation , abstracted Anatomical Region Laterality Modality Other Historical Provider HEALTH MAINTENANCE Final Result from Last 3 Months or Most Recently Relevant to Health Maintenance Insurance [facility]ICARE [facility] Care Teams Telephone Directory Distributor Driver Relationship Specialty Start Date End Date Claudia Issa MD [address] [place] [address] PCP - General Internal Medicine 12/01/14
--- OUTSIDE RECORDS SUMMARY | 2025-04-21 11:52 | XMS_ITS | Patient Health Record ---
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 Name Role Phone Maegan DUNHAM, Claudia Jha Primary Care Provider Mayte guerrero Diana Kat Unavailable [phone] Lucy Higginbotham Unavailable [phone] Allergies Allergen (clinical drug ingredient) Drug/Non Drug [...] atherosclerosis of arteries of lower limbs (disorder) (84911451885309848 ) Unspecified atherosclerosis of [place] arteries of extremities, bilateral legs (I70.203) Active confirmed Problem Lymphedema (75373036) Lymphedema (I89.0) Active confirmed Problem Bilateral atherosclerosis of arteries of lower limbs (disorder) (56470739854863733 ) Atherosclerosis of [place] artery of both lower extremities, with unspecified presence of clinical manifestation (I70.203) Active confirmed Q7(A), Q8(2B), Q9(1B,2 C) Vital Signs Blood pressure diastolic 60 mm Hg 03/02/2025 Height 5 ft 10 in in 03/02/2025 Blood pressure systolic 135 mm Hg 03/02/2025 Weight 265 lbs 03/02/2025 BMI 38.02 kg/m2 03/02/2025 Encounters Encounter Location Date Provider Diagnosis [address] [address] 06/12/2024 Lucy Higginbotham Atherosclerosis of [place] artery of both lower extremities, with unspecified presence of clinical manifestation I70.203 ; Tinea unguium B35.1 ; Pain in right toe(s) M79.674 and Pain in left toe(s) M79.[address] [address] 09/29/2024 Diana Kat Atherosclerosis of [place] artery of both lower extremities, with unspecified presence of clinical manifestation I70.203 ; Tinea unguium B35.1 ; Pain in right toe(s) M79.674 and Pain in left toe(s) M79.[address] [address] 12/01/2024 Diana Kat Atherosclerosis of [place] artery of both lower extremities, with unspecified presence of clinical manifestation I70.203 ; Tinea unguium B35.1 ; Pain in right toe(s) M79.674 and Pain in left toe(s) M79.675 [facility] [place] [address] [place] [address] 03/02/2025 Diana Kat Atherosclerosis of [place] artery of both lower extremities, with unspecified presence of clinical manifestation I70.203 ; Tinea unguium B35.1 ; Pain in right toe(s) M79.674 and Pain in left toe(s) M79.675 Assessments Encounter Date Diagnosis (ICD Code) Assessment Notes Treatment Notes Treatment Clinical Notes Section Notes 06/12/2024 Atherosclerosis of [place] artery of both lower extremities, with unspecified presence of clinical manifestation (ICD-10 - I70.203) Q7(A), Q8(2B), Q9(1B,2C) 09/29/2024 Atherosclerosis of [place] artery of both lower extremities, with unspecified presence of clinical manifestation (ICD-10 - I70.203) Q7(A), Q8(2B), Q9(1B,2C) 12/01/2024 Atherosclerosis of [place] artery of both lower extremities, with unspecified presence of clinical manifestation (ICD-10 - I70.203) Q7(A), Q8(2B), Q9(1B,2C) 03/02/2025 Atherosclerosis of [place] artery of both lower extremities, with unspecified presence of clinical manifestation (ICD-10 - I70.203) Q7(A), Q8(2B), Q9(1B,2C) 03/02/2025 Tinea unguium (ICD-10 - B35.1) 12/01/2024 Tinea unguium (ICD-10 - B35.1) 09/29/2024 Tinea unguium (ICD-10 - B35.1) 06/12/2024 Tinea unguium (ICD-10 - B35.1) 06/12/2024 [...] toe(s) (ICD-10 - M79.675) Plan Of Treatment Pending Test Test Name Order Date [id number] NAIL, 6 OR MORE 03/13/2024 [id number] SKIN LESIONS, 2 TO 4 06/27/19 [id number] SKIN LESIONS, 2 TO 4 09/20/19 [id number] SKIN LESIONS, 2 TO 4 03/13/20 Next Appt Details Provider Name:Diana Valdes [place], 06/11/2025 11:00:00 AM, [address] [facility], [place], [address], Insurance Providers Payer Name Payer Address Payer Phone Subscriber Number Group Number Insured Name Patient Relationship to Insured Coverage Start Date Coverage End Date Medicare National Govt [facility] [address] [place] [address] [id number] Josiah Torres Self - patient is the insured [employer] [facility] [address] [place] [address] [id number] Josiah Torres Self - patient is the insured Medical (General) History Medical History History ICD Code Arthritis asthma Broken bones Cancer Cataracts covid-19 Heart disease High blood pressure Warts Measles Mumps Chicken pox Surgical History Surgery Date(Month/Year) Hospitalization History Reason Date(Month/Year) [facility], ER, broken arm 08/16/23
== END 2025-04-21 10:35 | disposition home or self-care (01) ==
LOC: HO.HAP 10:34
PROVIDERS: Visit Provider Internal Medicine
DX: H90.3 Sensorineural hearing loss, bilateral (principal)
CPT/HCPCS: 92592; 92636; V5267